=== PATIENT | female | born 1945 | race Caucasian/White ===

== ENCOUNTER 2020-02-21 22:55 | Inpatient (IN) | payer OTHER, MEDICAID, SELFPAY ==
[~2020-02-21] VITALS: Ht 167.6 cm; Wt 78.0 kg
[2020-02-21 23:20] VITALS: BP_SYST 151
--- NOTE | 2020-02-21 23:20 | NUR ---
Patient to ER bed 8 to gown for evaluation. Side rails up. Report given to MINE.
--- NOTE | 2020-02-21 23:21 | NUR ---
PT AAO AND AMBULATORY C/O FEVER OF OVER 101 TODAY WITH DIARRHEA AND POOR APPETITE. PT REPORTS THAT SHE HAS HAD DIARRHEA ON AND OFF FOR THE PAST WEEK WELL.
[2020-02-21] MEDS ORDERED: NOR10 PO (23:53)
[2020-02-21] MEDS ORDERED: DONE10TA44 PO (23:53)
[2020-02-21] MEDS ORDERED: LIP20 PO (23:53)
[2020-02-21] MEDS ORDERED: METF-510 PO (23:53)
[2020-02-21] MEDS ORDERED: LOSA100T3 PO (23:53)
[2020-02-21] MEDS ORDERED: MELO15TA13 PO (23:53)
[2020-02-21] MEDS ORDERED: INSU100V11 SQ (23:53)
[2020-02-21] MEDS ORDERED: ASA81 PO (23:53)
--- NOTE | 2020-02-21 23:55 | NUR ---
Medication reconciliation completed with information provided by Natalio). Any prior medication reconciliation on file was reviewed and corrected.
[2020-02-22] MEDS ORDERED: NACL 0.9% 1,000 ML IV ONE ×2 (00:15→04:15)
--- NOTE | 2020-02-22 00:16 | NUR ---
DR. ROSALES BEDSIDE FOR PT EVAL
[2020-02-22 00:26] LABS: EOSINOPHILS % (AUTO) 0.1 % (0.0-4.0); HEMATOCRIT 36.4 % (36-48); HEMOGLOBIN 11.7 g/dL (12.0-16.0); LYMPHOCYTES # (AUTO) 1.1 K/uL (1.0-5.5); LYMPHOCYTES % (AUTO) 7.6 % (20.5-51.5); MEAN CORPUSCULAR HEMOGLOBIN 27 pg (27-31); MEAN CORPUSCULAR HGB CONC 32 % (32-36); MEAN CORPUSCULAR VOLUME 83 fL (79.0-98.0); MONOCYTES # (AUTO) 0.5 K/uL (0.0-1.0); MONOCYTES % (AUTO) 3.7 % (1.7-9.3); NEUTROPHILS # (AUTO) 12.4 K/uL (1.8-7.7); NEUTROPHILS % (AUTO) 88.6 % (40.0-70.0); PLATELET COUNT (AUTO) 401 K/uL (130-430); RED CELL DISTRIBUTION WIDTH 18.2 % (9.0-15.0)
[2020-02-22 00:34] LABS: ANION GAP 14 (5-15); CALCIUM 9.5 mg/dL (8.4-11.0); CHLORIDE 102 mmol/L (98-107); CREATININE 1.21 mg/dL (0.55-1.30); GLUCOSE 237 mg/dL (70-99); POTASSIUM 3.7 mmol/L (3.5-5.1); SODIUM SERUM 142 mmol/L (136-145); UREA NITROGEN, BLOOD 27 mg/dL (8-21)
[2020-02-22 00:40] LABS: ALANINE AMINOTRANSFERASE 15 U/L (12-78); ASPARTATE AMINOTRANSFERASE 11 U/L (10-37); TOTAL BILIRUBIN 0.3 mg/dL (0.0-1.0)
--- NOTE | 2020-02-22 01:20 | NUR ---
VSS no s/s of acute distress Resting on gurney rails up
--- NOTE | 2020-02-22 02:23 | NUR ---
Pt's family dropped off pt's belonging including adult briefs
[2020-02-22 03:10] LABS: STREPTOCOCCUS A SCREEN (RAPID) NEGATIVE (NEGATIVE)
--- NOTE | 2020-02-22 03:30 | NUR ---
Dr. Morgan bedside for pt update on adm
[2020-02-22 03:33] LABS: INFLUENZA A&B ANTIGEN SCREEN NEGATIVE FOR A & B (NEGATIVE)
[2020-02-22] MEDS ORDERED: VANCOMYCIN HCL 1,000 MG in NS 250 ML IV ONE (04:15)
[2020-02-22] MEDS ORDERED: cefTRIAXone 1 GM in D5W 50 ML IV ONE (04:15)
[2020-02-22] MEDS ORDERED: cefTRIAXone 1 GM VIAL ONE (04:31)
[2020-02-22] MEDS ORDERED: VANCOMYCIN HCL 1000 MG/VIAL IV ONE (04:32)
--- NOTE | 2020-02-22 04:35 | NUR ---
CONSULTATION PAGED/CALLED Reason for Consultation: SEPSIS Person Who was Notified:ELIECER Consulting Physician: Andrzej CHRISTIANSON Teacher Drama Specialty: ID Ordering Physician: JOSSE
--- NOTE | 2020-02-22 04:45 | NUR ---
VSS no s/s of acute distress Resting on gurney rails up
[2020-02-22 05:00] VITALS: BP_SYST 143
--- NOTE | 2020-02-22 05:00 | NUR ---
ADMISSION: Patient AOX4, CARLINE KWOK, 74 y/o, F admitted by DOMINGUEZ TOVAR MD. With the Diagnosis of Sepsis, was given written information regarding hospital policies, unit procedures and contact persons. Valuables were checked. Call lights within reach. Safety precautions in place.
--- NOTE | 2020-02-22 05:00 | NUR ---
Transfer to Tele via ACLS protocol. Licensed nurse present. IV present no signs or symptoms of infiltration.
--- NOTE | 2020-02-22 05:00 | NUR ---
Patient will be admitted to care of . Admitted to Tele unit. Will go to room 120. Belongings list completed. Complete and up to date summary report printed. SBAR report to be given at bedside with opportunity for questions.
[2020-02-22] MEDS: D5/0.45 NS 1,000 ML IV SCH ×2 (06:00→17:08)
[2020-02-22] MEDS ORDERED: LORazepam 2 MG/ML VIAL IVP PRN (06:30)
[2020-02-22] MEDS ORDERED: NALOXONE HCL 0.4 MG/ML AMP (NARCAN) IVP PRN ×2 (06:30)
[2020-02-22] MEDS ORDERED: HYDROcodone/ACETAMIN 10-325 MG TAB PO PRN (06:30)
[2020-02-22] MEDS ORDERED: HYDROcodone/ACETAMIN 5-325 MG TAB (NORCO/ VICODIN) PO PRN (06:30)
[2020-02-22] MEDS ORDERED: ACETAMINOPHEN 325 MG TABLET PO PRN (06:30)
[2020-02-22] MEDS ORDERED: ONDANSETRON HCL 4 MG/2 ML VIAL IVP PRN (06:30)
--- NOTE | 2020-02-22 07:00 | NUR ---
RN NOTE MORNING SHIFT RN, AWARE OF ELEVATED TEMPERATURE. ENDORSE TO ORION RN.
--- NOTE | 2020-02-22 07:05 | NUR ---
CLOSING NOTE/ NEW IVF PATIENT PHYSICAL ASSESSMENT DONE AND RECORDED. PATIENT AOX4. NEW IVF HUNG AT THIS TIME. WILL ENDORSE TO ONCOMING SHIFT NURSE FOR CONTINUITY OF CARE
--- NOTE | 2020-02-22 08:02 | NUR ---
INITIAL ROUNDS Received pt AAOx4, no s/s resp distress, no c/o pain or discomfort, pt's temperature 97.8 degrees F. Pt on Airborne and Droplet isolation precautions for Covid 19+. Plan of care for the day reviewed with pt-pt verbalized his understanding. IVF infusing well to LAC at ordered rate with no s/s infiltration to site. Noted pt has her own depends on-pt educated on skin care and that we recommend not using Depends here-pt stated she understands but she still wants to use her Depends. Pt continent-pt observed ambulating to the bathroom using her cane with steady gait. Pain management, disease process, isolation, skin and safety discussed-teach back done. Call light within reach.
[2020-02-22] MEDS ORDERED: GLUCOSE 15 GM GEL (in 37.5 GM TUBE) PO PRN (09:30)
[2020-02-22] MEDS ORDERED: D5W 1,000 ML IV PRN (09:30)
[2020-02-22] MEDS ORDERED: DEXTROSE 50%-WATER 50 ML DISP.SYRIN IVP PRN (09:30)
[2020-02-22] MEDS: LOSARTAN POTASSIUM 50 MG TABLET (COZAAR) PO SCH (10:01)
[2020-02-22] MEDS: ASPIRIN 81 MG TAB.CHEW PO SCH (10:01)
[2020-02-22] MEDS: amLODIPine BESYLATE 10 MG TABLET PO SCH (10:01)
--- NOTE | 2020-02-22 10:40 | NUR ---
DRESSING CHANGED Pt's small foam dressing to left hip healing scar saturated with clear, thin drainage. Area cleansed with normal saline, foam dressing placed over site and secured in place with paper tape. Pt tolerated well. Call light within reach.
[2020-02-22 11:45] VITALS: BP_SYST 123
[2020-02-22 16:23] VITALS: BP_SYST 126
--- NOTE | 2020-02-22 17:35 | NUR ---
C/O DIARRHEA Pt c/o 3rd episode diarrhea in last couple of hours, did not see nor collect due to pt flushed the toilet right away. Dr. Bajwa called, awaiting call back.
--- NOTE | 2020-02-22 17:36 | NUR ---
PAGED PAGED DOMINGUEZ BAXTER AT [phone] SPOKE WITH MANDEEP.
[2020-02-22] MEDS ORDERED: LOPERAMIDE HCL 2 MG CAPSULE PO PRN (17:45)
--- NOTE | 2020-02-22 18:03 | NUR ---
CLOSING NOTE Pt sitting up in bed with no s/s resp distress, afebrile, no c/o pain or discomfort. Pt given Imodium tablet as ordered for c/o diarrhea. Urine culture sample sent to lab. IVF infusing well at ordered rate with no s/s infiltration to site. Airborne and droplet isolation precautions maintained throughout shift. All precautions remain in place, call light within reach.
--- NOTE | 2020-02-22 19:10 | NUR ---
OPENING NOTE PATIENT AWAKE, AOX4. NO SIGNS OF RESPIRATORY DISTRESS NOTED. DENIES PAIN AND DISCOMFORT. ON ROOM AIR, TOLERATING WELL. IVF INFUSING WELL. CALL LIGHT WITHIN REACH, PATIENT WAS EDUCATED TO USE CALL LIGHT WHEN ASSISTANCE IS NEEDED, PATIENT ABLE TO VERBALIZED UNDERSTANDING. PATIENT AMBULATES WITH CANE. BED LOCKED AND IN LOWEST POSITION. SAFETY AND ISOLATION PRECAUTION IN PLACE. WILL CONTINUE TO MONITOR PATIENT
[2020-02-22 20:00] VITALS: BP_SYST 129
[2020-02-22] MEDS: INSULIN GLARGINE 100 UNITS/ML 10 ML VIAL SQ SCH (21:00)
[2020-02-22] MEDS: cefTRIAXone 1 GM IVPB PREMIX 50 ML IV SCH (21:34)
[2020-02-22] MEDS: DONEPEZIL HCL 5 MG TABLET (ARICEPT) PO SCH (21:34)
[2020-02-22] MEDS: ATORVASTATIN 20 MG TABLET PO SCH (21:34)
--- NOTE | 2020-02-22 21:34 | NUR ---
MED PASS/ BS 150/ NEW IV SITE DUE MEDICATION GIVEN AT THIS TIME. BS WAS 150. LANTUS WAS GIVEN PER ORDER WELL. PATIENT WAS EDUCATED ON MEDICATION THAT WAS GIVEN FOR ITS PURPOSE, SIDE EFFECT AND BENEFITS. PATIENT ABLE TO VERBALIZED UNDERSTANDING. PATIENT IV SITE INFILTRATED, REMOVED AT THIS TIME, CATHETER INTACT. REINSERTED IN THE LEFT FOREARM #22 G, PATENCY NOTED. CALL LIGHT WITHIN REACH. SAFETY PRECAUTIONS IN PLACE. WILL CONTINUE TO MONITOR PATIENT
--- NOTE | 2020-02-22 23:50 | NUR ---
VITAL SIGNS VITAL SIGNS TAKEN AND WILL BE RECORDED. PATIENT AWAKE, AMBULATE TO BATHROOM WITH ASSISTIVE DEVICE. AND SAFELY BACK TO BED. NO SIGNS OF RESPIRATORY DISTRESS AND DISCOMFORT NOTED. BREATHING EVEN AND UNLABORED. ON ROOM AIR TOLERATING WELL. IVF INFUSING WELL. CALL LIGHT WITHIN REACH. SAFETY PRECAUTIONS IN PLACE. WILL CONTINUE TO MONITOR PATIENT
--- NOTE | 2020-02-23 | NUR ---
Midnight note: Pt laying in bed with no signs of distress. No pain or discomfort reported. Safety precautions in place. Call light within reach, side rails up x3. Bed in lowest position. Bed alarms on.
[2020-02-23 00:04] VITALS: BP_SYST 115
[2020-02-23] MEDS: D5/0.45 NS 1,000 ML IV SCH ×3 (00:30→23:04)
--- NOTE | 2020-02-23 02:36 | NUR ---
RN ROUNDS PATIENT ASLEEP AT THIS TIME. NO SIGNS OF RESPIRATORY DISTRESS AND DISCOMFORT NOTED. BREATHING EVEN AND UNLABORED. ON ROOM AIR TOLERATING WELL. IVF INFUSING WELL. CALL LIGHT WITHIN REACH. SAFETY PRECAUTIONS IN PLACE. WILL CONTINUE TO MONITOR PATIENT.
[2020-02-23] MEDS: INSULIN REGULAR, HUMAN 100 UNITS/ML, 10 ML VIAL (humuLIN R) SUBCUT PRN (06:58)
--- NOTE | 2020-02-23 07:00 | NUR ---
Nutrition Update Yoshi scale 18 noted. Pt admitted for Sepsis Diet: Cardiac BMI: 27.8 kg/m2 RD to follow per nutrition care standards.
--- NOTE | 2020-02-23 07:00 | NUR ---
CLOSING NOTE /BS 169/ WOUND CARE PATIENT AWAKE AND AMBULATE TO BATHROOM USING CANE. PATIENT HAS NO SIGNS OF RESPIRATORY DISTRESS AND DISCOMFORT NOTED. BREATHING EVEN AND UNLABORED. ON ROOM AIR TOLERATING WELL. BS WAS 169, 2 UNITS OF REGULAR INSULIN FOR COVERAGE WA GIVEN. PATIENT WAS EDUCATED ON MEDICATION THAT WAS GIVEN FOR ITS PURPOSE, SIDE EFFECT AND BENEFITS. PATIENT VERBALIZED UNDERSTANDING. DRESSING IN THE LEFT HIP WAS DONE WELL, DRESSING SOILED AND YELLOW DRAINAGE NOTED. BED LOCKED AND IN LOWEST POSITION. ON SAFETY AND ISOLATION PRECAUTION IN PLACE. ALL NEEDS MET THROUGHOUT THE SHIFT. WILL CONTINUE TO MONITOR PATIENT UNTIL ENDORSE TO ONCOMING SHIFT NURSE FOR CONTINUITY OF CARE.
[2020-02-23 07:32] LABS: BASOPHILS % (AUTO) 0.2 % (0.0-2.0); EOSINOPHILS # (AUTO) 0.1 K/uL (0.0-0.4); EOSINOPHILS % (AUTO) 0.6 % (0.0-4.0); HEMATOCRIT 30.5 % (36-48); HEMOGLOBIN 9.9 g/dL (12.0-16.0); LYMPHOCYTES % (AUTO) 8.8 % (20.5-51.5); MEAN CORPUSCULAR HEMOGLOBIN 27 pg (27-31); MEAN CORPUSCULAR HGB CONC 33 % (32-36); MEAN CORPUSCULAR VOLUME 81 fL (79.0-98.0); MONOCYTES # (AUTO) 0.7 K/uL (0.0-1.0); MONOCYTES % (AUTO) 6.2 % (1.7-9.3); NEUTROPHILS % (AUTO) 84.2 % (40.0-70.0); PLATELET COUNT (AUTO) 286 K/uL (130-430); RED BLOOD CELL COUNT(AUTO) 3.74 MIL/uL (4.2-6.2); RED CELL DISTRIBUTION WIDTH 17.9 % (9.0-15.0); WHITE BLOOD COUNT (AUTO) 11.8 K/uL (4.8-10.8)
[2020-02-23 07:49] LABS: ANION GAP 10 (5-15); CALCIUM 8.5 mg/dL (8.4-11.0); CHLORIDE 102 mmol/L (98-107); CREATININE 0.83 mg/dL (0.55-1.30); GLUCOSE 164 mg/dL (70-99); PHOSPHORUS 2.7 mg/dL (2.7-4.5); POTASSIUM 3.1 mmol/L (3.5-5.1); SODIUM SERUM 137 mmol/L (136-145); UREA NITROGEN, BLOOD 7 mg/dL (8-21)
[2020-02-23 08:00] VITALS: BP_SYST 126
--- NOTE | 2020-02-23 08:01 | NUR ---
INITIAL ROUNDS Received pt AAOx3, forgetful at times. No s/s resp distress, no c/o pain or discomfort. No further c/o diarrhea today. Airborne and Droplet precautions in place for R/O Covid 19. IVF infusing well to LAC at ordered rate with no s/s infiltration to site. Plan of care for the day reviewed with pt-pt verbalized her understanding. Pt has her own Depends on-pt educated on skin care and that we do not recommend Depends-pt stated she still wants to wear her Depends. Pain management, sepsis, isolation, skin and safety discussed-teach back done. Side rails up x3, room close to nursing station for safety. Call light within reach.
[2020-02-23] MEDS: ASPIRIN 81 MG TAB.CHEW PO SCH (09:04)
[2020-02-23] MEDS: amLODIPine BESYLATE 10 MG TABLET PO SCH (09:04)
[2020-02-23] MEDS: LOSARTAN POTASSIUM 50 MG TABLET (COZAAR) PO SCH (09:04)
[2020-02-23 10:47] LABS: ERYTHROCYTE SEDIMENTATION RATE 70 MM/HR (0-20)
[2020-02-23] MEDS ORDERED: COMMUNICATION ORDER XX ONE (11:15)
[2020-02-23] MEDS ORDERED: MEMA1CAP3 PO (11:21)
[2020-02-23] MEDS: MELOXICAM 7.5 MG TABLET PO SCH ×2 (11:33→11:35)
[2020-02-23 12:35] VITALS: BP_SYST 100
--- NOTE | 2020-02-23 13:45 | NUR ---
Dietitian Recommendations *Continue [facility] [place] Cardiac diet. *Recommend: adding Glucerna BID. ONS will provide additional 440 kcal and 20gm protein daily. Please see Nutritional Assessment for details. GONZALO, JOANNA
--- NOTE | 2020-02-23 13:48 | NUR ---
ROUNDS Pt resting quietly in bed with no s/s resp distress, afebrile, no further c/o pain or discomfort. No changes, all precautions remain in place, call light within reach.
[2020-02-23 16:15] VITALS: BP_SYST 123
--- NOTE | 2020-02-23 17:54 | NUR ---
CALLED Pt is Covid 19 not detected, DR. Andrzej Christensen called, awaiting call back.
[2020-02-23] MEDS ORDERED: SER25 PO (18:27)
--- NOTE | 2020-02-23 18:46 | NUR ---
CLOSING NOTE//OTF ISOLATION Dr. Bajwa here and informed of pt's Covid 19 not detected results, informed him that Dr. Andrzej Christensen has not seen the patient yet-Dr. Bajwa stated okay to D/C isolation precautions-will inform Charge Nurse. Pt sitting up in bed eating her dinner. No s/s resp distress, no c/o pain or discomfort. IVF infusing well to LFA at ordered rate with no s/s infiltration to site. Pt given new package of Depends from her family. All precautions remain in place. Needs met, call light within reach.
[2020-02-23] MEDS ORDERED: POTASSIUM CHLORIDE 20 MEQ TAB.PRT.SR PO ONE (19:00)
[2020-02-23] MEDS ORDERED: MAGNESIUM SULFATE 50 ML IV ONE (19:00)
--- NOTE | 2020-02-23 19:39 | NUR ---
Dr. Srikanth Bajwa / MS s/w Dr. Srikanth Bajwa and he provided order; ok to downgrade to MS
--- NOTE | 2020-02-23 19:48 | NUR ---
TRANSFER PATIENT DOWN GRADED TO MED-SURG STATUS AND ISOLATION DISCONTINUED. PATIENT TRANSFERRED TO ROOM 101B. ALL BELONGINGS MOVED WITH PATIENT. REPORT GIVEN TO BENITO VERDUZCO.
--- NOTE | 2020-02-23 20:00 | NUR ---
Opening note: Received pt A/O x4. No signs of distress noted. Breathing is even/ unlabored and on room air. Denies any pain or discomfort. Client tolerating IV fluid well. Safety precautions in place. Call light within reach. Pt ambulates with cane to the restroom. Educated pt to call for assistance as needed for restroom assistance. Client verbalizing understanding. Safety precautions in place. Bed in low position. Call light within reach. Side rails up x2.
[2020-02-23] MEDS: ATORVASTATIN 20 MG TABLET PO SCH (22:00)
[2020-02-23] MEDS: DONEPEZIL HCL 5 MG TABLET (ARICEPT) PO SCH (22:17)
[2020-02-23] MEDS: MEMANTINE HCL 5 MG TABLET PO SCH (23:06)
[2020-02-23] MEDS: QUEtiapine FUMARATE 25 MG TABLET PO SCH (23:07)
[2020-02-23] MEDS: cefTRIAXone 1 GM IVPB PREMIX 50 ML IV SCH (23:50)
[2020-02-24] VITALS: BP_SYST 128
--- NOTE | 2020-02-24 | NUR ---
Midnight note: Pt resting in bed. A/O x4. Breathing even and unlabored. No complain of pain or distress verbalized. No signs of distress noted. Bed in low position/ locked, side rails x2, bed side commode near bed.
[2020-02-24] MEDS: INSULIN GLARGINE 100 UNITS/ML 10 ML VIAL SQ SCH (00:09)
[2020-02-24 04:00] VITALS: BP_SYST 115
--- NOTE | 2020-02-24 05:15 | NUR ---
Closing note Pt getting up to use the restroom with assistance throughout shift. No signs of distress noted. Breathing even/unlabored and on room air. BS remained within normal limits with coverage needed as of now. Dressing dry and intact no drainage noted. Bed in low position/locked. Side rails up x2, bed side commode and call light within reach. Client verbalized she would call for assistance as needed.
[2020-02-24 05:30] LABS: BASOPHILS % (AUTO) 0.3 % (0.0-2.0); EOSINOPHILS # (AUTO) 0.2 K/uL (0.0-0.4); EOSINOPHILS % (AUTO) 1.6 % (0.0-4.0); HEMATOCRIT 27.2 % (36-48); LYMPHOCYTES # (AUTO) 1.1 K/uL (1.0-5.5); LYMPHOCYTES % (AUTO) 10.6 % (20.5-51.5); MEAN CORPUSCULAR HEMOGLOBIN 27 pg (27-31); MEAN CORPUSCULAR HGB CONC 33 % (32-36); MEAN CORPUSCULAR VOLUME 81 fL (79.0-98.0); MONOCYTES # (AUTO) 0.6 K/uL (0.0-1.0); MONOCYTES % (AUTO) 6.1 % (1.7-9.3); NEUTROPHILS # (AUTO) 8.6 K/uL (1.8-7.7); NEUTROPHILS % (AUTO) 81.4 % (40.0-70.0); PLATELET COUNT (AUTO) 271 K/uL (130-430); RED BLOOD CELL COUNT(AUTO) 3.35 MIL/uL (4.2-6.2); WHITE BLOOD COUNT (AUTO) 10.5 K/uL (4.8-10.8)
[2020-02-24 05:36] LABS: ANION GAP 6 (5-15); CALCIUM 8.3 mg/dL (8.4-11.0); CHLORIDE 104 mmol/L (98-107); CREATININE 0.69 mg/dL (0.55-1.30); GLUCOSE 110 mg/dL (70-99); POTASSIUM 3.2 mmol/L (3.5-5.1); SODIUM SERUM 137 mmol/L (136-145); UREA NITROGEN, BLOOD 8 mg/dL (8-21)
--- NOTE | 2020-02-24 07:00 | NUR ---
Blood sugar BS (124) within normal limits. No coverage needed. Safety precautions in place, bed locked and in low position. Call light within reach, side rails up x2.
[2020-02-24 08:46] LABS: ERYTHROCYTE SEDIMENTATION RATE 76 MM/HR (0-20)
[2020-02-24] MEDS: amLODIPine BESYLATE 10 MG TABLET PO SCH (09:00)
[2020-02-24] MEDS ORDERED: DONEPEZIL HCL 5 MG TABLET (ARICEPT) PO SCH (09:00)
[2020-02-24] MEDS ORDERED: metFORMIN HCL 500 MG TABLET PO SCH (09:00)
[2020-02-24] MEDS: MELOXICAM 7.5 MG TABLET PO SCH (09:00)
[2020-02-24] MEDS: ASPIRIN 81 MG TAB.CHEW PO SCH (09:27)
[2020-02-24] MEDS: MEMANTINE HCL 5 MG TABLET PO SCH (09:27)
[2020-02-24] MEDS: LOSARTAN POTASSIUM 50 MG TABLET (COZAAR) PO SCH (09:28)
[2020-02-24] MEDS: QUEtiapine FUMARATE 25 MG TABLET PO SCH (09:28)
--- NOTE | 2020-02-24 10:45 | NUR ---
WOUND EVALUATION: Wound Consult received from Dr. Carlos Bajwa. Thank you Dr. Bajwa for the consult. Patient received in a Huger Bed with an IsoFlex CRAIG mattress, awake, alert, oriented x 3. Patient is able to turn independently. Yoshi Score is a 20. 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 Recent Labs: WBC 10.5, RBC 3.35, hemoglobin 9.0, hematocrit 27.2, ESR 76, potassium 3.2, glucose 110, POC glucose 124, calcium 8.3, C-reactive protein 28.0, albumin 3.0. Microbiology: Blood culture results x2 in progress. Nose/throat culture results in progress. Urine culture results positive for E. coli. Intrinsic factors that delay wound healing: Diabetes mellitus, Hypoalbuminemia. Extrinsic factors that delay wound healing: Decreased mobility. Wound Assessment: 1. Left Lateral Hip, Proximal Open Area: Surgical incision from total hip replacement in May,. Incision is mostly approximated with white scar tissue, but has 2 small open areas. Wound bed has 100% pink tissue. No odor, small serous drainage. Periwound intact. Surrounding tissue appears to be normal, no signs of erythema, calor, or induration. Site measures 0.3 cm x 0.2 cm. 2. Left Lateral Hip, Distal Open Area: Surgical incision from total hip replacement in May,. Incision is mostly approximated with white scar tissue, but has 2 small open areas. Wound bed has 100% pink tissue. No odor, small serous drainage. Periwound intact. Surrounding tissue appears to be normal, no signs of erythema, calor, or induration. Site measures 0.5 cm x 0.2 cm. Recommend: Cleanse wound with normal saline. Apply SurePrep to nanci-wound and surrounding area. Cover with 4x4 foam dressing. Perform wound care daily, and as needed for dressing soiling or dislodgement. Also recommend: Encourage and assist patient as needed with repositioning every 2 hours with pillow support and off-load pressure areas with pillows for pressure re-distribution. Offload, elevate and float bilateral heels with pillows. Perform skin care and monitor skin integrity Q shift. Use moisture barrier cream on buttocks and other moisture susceptible areas QID and as needed for soiling.
[2020-02-24 12:01] VITALS: BP_SYST 104
--- NOTE | 2020-02-24 13:03 | NUR ---
Spoke with patients daughter for update on patients status.
--- NOTE | 2020-02-24 13:03 | NUR ---
Patient is in bed resting. Patient is alert and oriented x4. Patient denies pain, shortness of breath, and distress. Wound care done. All care needs met. Bed in low position. Call light in reach. Will continue to monitor.
[2020-02-24 16:03] VITALS: BP_SYST 119
[2020-02-24] MEDS ORDERED: POTASSIUM CHLORIDE 20 MEQ TAB.PRT.SR PO ONE (17:45)
--- NOTE | 2020-02-24 17:53 | NUR ---
P.T. NOTES P.T. EVAL COMPLETED; REFER TO EVAL FOR DETAILS; AMBULATORY W/ FWW; D/C FROM P.T. AFTER EVAL, ENDORSED TO NURSING.
[2020-02-24] MEDS ORDERED: SULF1TAB48 PO ×2 (18:13→20:03)
[2020-02-24] MEDS: INSULIN REGULAR, HUMAN 100 UNITS/ML, 10 ML VIAL (humuLIN R) SUBCUT PRN (18:24)
--- NOTE | 2020-02-24 18:48 | NUR ---
Patient is in bed resting. Patient is alert and oriented x4. All care needs met during shift. Bed in low position. Call light in reach. Will give report to night nurse.
[2020-02-24 19:41] VITALS: BP_SYST 141
--- NOTE | 2020-02-24 20:01 | NUR ---
call pt's daughter Marina dent [phone], left voice mail that her mother is discharge tonight and will be ready for bulk picker in 30 mins. will wait for call back.
--- NOTE | 2020-02-24 20:20 | NUR ---
Pt discharged. Picked up by pt's daughter Marina dent. New regimen prescription explained followed by discharged papers.
== END 2020-02-24 23:26 | disposition home or self-care (01) | DRG 872 ==
LOC: SED 22:55 → STU 02-22 04:16 → SMU 02-23 19:43
PROVIDERS: ADMIT Preventive Medicine Preventive Medicine/Occupational Environmental Medicine; ATTEND Preventive Medicine Preventive Medicine/Occupational Environmental Medicine
DX: A41.9 Sepsis, unspecified organism (principal); N39.0 Urinary tract infection, site not specified; B96.20 Unspecified Escherichia coli [E. coli] as the cause of diseases classified elsewhere; E11.65 Type 2 diabetes mellitus with hyperglycemia; E78.5 Hyperlipidemia, unspecified; F03.90 Unspecified dementia, unspecified severity, without behavioral disturbance, psychotic disturbance, mood disturbance, and anxiety; E83.42 Hypomagnesemia; I10 Essential (primary) hypertension; R79.89 Other specified abnormal findings of blood chemistry; E87.6 Hypokalemia; E83.51 Hypocalcemia; D64.9 Anemia, unspecified; Z20.828 Contact with and (suspected) exposure to other viral communicable diseases; Z96.643 Presence of artificial hip joint, bilateral; S71.002A Unspecified open wound, left hip, initial encounter; X58.XXXA Exposure to other specified factors, initial encounter; Y93.89 Activity, other specified; Y92.89 Other specified places as the place of occurrence of the external cause; Y99.8 Other external cause status; Z79.899 Other long term (current) drug therapy; Z79.82 Long term (current) use of aspirin
CPT/HCPCS: 36415; 71045; 72170-TC; 73502; 80048; 80053; 82962; 83605; 83735-TC; 84100-TC; 85025; 85651-TC; 86140; 86403; 86710; 87040-TC; 87070-TC; 87075-TC; 87081; 87086; 87186-TC; 96365; 96366; 96368; 99285; A6209; G0378; J0696; J1815; J3370; J3475; U0003-CS

== ENCOUNTER 2020-03-05 18:26 | Emergency (ER) | payer OTHER, MEDICAID, SELFPAY ==
[~2020-03-05] VITALS: Ht 172.7 cm; Wt 90.7 kg
[~2020-03-05 18:26] MED LIST: ASA81 PO; DONE10TA44 PO; INSU100V11 SQ; LIP20 PO; LOSA100T3 PO; MELO15TA13 PO; MEMA1CAP3 PO; METF-510 PO; NOR10 PO; SER25 PO; SULF1TAB48 PO
[2020-03-05 18:40] VITALS: BP_SYST 121
[2020-03-05] MEDS ORDERED: KETOROLAC TROMETHAMINE 15 MG VIAL IVP ONE (20:15)
[2020-03-05] MEDS ORDERED: MORPHINE 2 MG/ML INJ. SYRINGE IVP ONE (20:15)
[2020-03-05 20:28] LABS: BASOPHILS % (AUTO) 0.4 % (0.0-2.0); EOSINOPHILS # (AUTO) 0.2 K/uL (0.0-0.4); EOSINOPHILS % (AUTO) 2.3 % (0.0-4.0); HEMATOCRIT 31.6 % (36-48); HEMOGLOBIN 9.8 g/dL (12.0-16.0); LYMPHOCYTES # (AUTO) 1.9 K/uL (1.0-5.5); LYMPHOCYTES % (AUTO) 23.1 % (20.5-51.5); MEAN CORPUSCULAR HEMOGLOBIN 26 pg (27-31); MEAN CORPUSCULAR HGB CONC 31 % (32-36); MEAN CORPUSCULAR VOLUME 84 fL (79.0-98.0); MONOCYTES # (AUTO) 0.6 K/uL (0.0-1.0); MONOCYTES % (AUTO) 6.9 % (1.7-9.3); NEUTROPHILS # (AUTO) 5.5 K/uL (1.8-7.7); NEUTROPHILS % (AUTO) 67.3 % (40.0-70.0); PLATELET COUNT (AUTO) 473 K/uL (130-430); RED BLOOD CELL COUNT(AUTO) 3.77 MIL/uL (4.2-6.2); RED CELL DISTRIBUTION WIDTH 18.1 % (9.0-15.0); WHITE BLOOD COUNT (AUTO) 8.1 K/uL (4.8-10.8)
[2020-03-05 20:28] LABS: BILIRUBIN,URINE NEGATIVE (NEGATIVE); BLOOD, URINE NEGATIVE (NEGATIVE); CLARITY/URINE CLEAR (CLEAR); COLOR,URINE YELLOW (YELLOW); GLUCOSE,URINE NEGATIVE (NEGATIVE); KETONES,URINE NEGATIVE (NEGATIVE); LEUKOCYTE ESTERASE ,URINE NEGATIVE (NEGATIVE); NITRITE, URINE NEGATIVE (NEGATIVE); PROTEIN URINE NEGATIVE (NEGATIVE); UROBILINOGEN,URINE 0.2 (0.2-1.0)
[2020-03-05 20:44] LABS: CALCIUM 10.1 mg/dL (8.4-11.0); CHLORIDE 103 mmol/L (98-107); CREATININE 1.19 mg/dL (0.55-1.30); GLUCOSE 102 mg/dL (70-99); UREA NITROGEN, BLOOD 29 mg/dL (8-21)
[2020-03-05] MEDS ORDERED: NACL 0.9% 1,000 ML IV ONE ×2 (20:45→21:15)
[2020-03-05 20:59] LABS: ALANINE AMINOTRANSFERASE 22 U/L (12-78); ALBUMIN 2.7 g/dL (3.4-4.8); ASPARTATE AMINOTRANSFERASE 16 U/L (10-37); LIPASE 92 U/L (73-393)
[2020-03-05 21:12] LABS: ANION GAP 12 (5-15); SODIUM SERUM 139 mmol/L (136-145)
[2020-03-05 21:14] LABS: POTASSIUM 5.3 mmol/L (3.5-5.1)
[2020-03-05 21:23] LABS: TOTAL BILIRUBIN 0.1 mg/dL (0.0-1.0)
[2020-03-05] MEDS ORDERED: SODIUM POLYSTYRENE SULFONATE 15 GM/60 ML UDBTL PO ONE (21:30)
[2020-03-05 22:00] VITALS: BP_SYST 121
== END 2020-03-05 22:00 | disposition home or self-care (01) ==
LOC: SED 18:26
DX: K57.92 Diverticulitis of intestine, part unspecified, without perforation or abscess without bleeding (principal); I10 Essential (primary) hypertension; E11.9 Type 2 diabetes mellitus without complications; Z79.899 Other long term (current) drug therapy; Z79.82 Long term (current) use of aspirin
CPT/HCPCS: 36415; 74176; 80053; 81003; 83605; 83690; 85025; 93005; 96361; 96374; 96375; 99285; J1885; J2270; J7030

== ENCOUNTER 2020-03-26 23:58 | Inpatient (IN) | payer OTHER, MEDICAID, SELFPAY ==
[~2020-03-26] VITALS: Ht 167.6 cm; Wt 89.8 kg
[2020-03-26 20:00] VITALS: BP_SYST 111
[2020-03-26 23:58] VITALS: BP_SYST 121
[~2020-03-26 23:58] MED LIST changes: +CEFA2SYR4 IV; -SULF1TAB48 PO
--- NOTE | 2020-03-27 | NUR ---
Pt biba from [facility] to bed 6 for evaluation
[2020-03-27] MEDS ORDERED: ACET325T PO ×2 (00:33→00:35)
[2020-03-27] MEDS ORDERED: MULT-1100 PO (00:37)
[2020-03-27] MEDS ORDERED: MEMA10TA PO (00:40)
--- NOTE | 2020-03-27 00:46 | NUR ---
pt ambulated to restroom with cane with steady gait.
[2020-03-27] MEDS ORDERED: SSREG SUBCUT (00:57)
[2020-03-27] MEDS ORDERED: GLUC1KIT I.M. (01:00)
[2020-03-27] MEDS ORDERED: DEXT50DI5 IV (01:04)
--- NOTE | 2020-03-27 01:07 | NUR ---
Medication reconciliation completed with information provided by Lesly Dorsey. Any prior medication reconciliation on file was reviewed and corrected.
--- NOTE | 2020-03-27 01:12 | NUR ---
ER Dr. Morgan at bedside examining patient.
--- NOTE | 2020-03-27 01:15 | NUR ---
pt a&o x4 BIB BLS from [facility] c/o of constant left hip pain for past three days. pt had hip replacement in 2018 and was admittted 03/15/20 for cellulitis of left hip. pt has a right upper arm PICC line and has been receiving antibiotic therapy while at [facility]. pt complains of 8 out of 10 pain that has been constant.
[2020-03-27] MEDS ORDERED: MORPHINE 4 MG/ML INJ. SYRINGE IVP ONE (02:30)
[2020-03-27] MEDS ORDERED: cefTRIAXone 1 GM in D5W 50 ML IV ONE (02:30)
--- NOTE | 2020-03-27 02:30 | NUR ---
PATIENTS RIGHT UPPER ARM PICC LINE DOES NOT FLUSH PROPERLY. UNABLE TO DRAW BLOOD BACK AND UNABLE TO FLUSH WITH NORMAL SALINE. AWARE.
--- NOTE | 2020-03-27 02:40 | NUR ---
# 20 gauge angiocath placed to RIGHT HAND. Use of asceptic technique. Opsite placed over site. Blood return noted. Blood for lab drawn from site. Flushed with 10 cc of normal saline. No evidence of infiltration noted. Patient tolerated well.
[2020-03-27] MEDS ORDERED: cefTRIAXone 1 GM IVPB PREMIX 50 ML IV ONE (02:46)
--- NOTE | 2020-03-27 02:50 | NUR ---
Blood cultures drawn, prior to administration of antibiotic.
--- NOTE | 2020-03-27 03:49 | NUR ---
LAB AT BEDSIDE FOR BLOOD DRAW.
[2020-03-27 03:58] LABS: BASOPHILS % (AUTO) 0.5 % (0.0-2.0); EOSINOPHILS # (AUTO) 0.3 K/uL (0.0-0.4); EOSINOPHILS % (AUTO) 3.7 % (0.0-4.0); HEMATOCRIT 30.9 % (36-48); HEMOGLOBIN 10.2 g/dL (12.0-16.0); LYMPHOCYTES # (AUTO) 1.6 K/uL (1.0-5.5); LYMPHOCYTES % (AUTO) 19.4 % (20.5-51.5); MEAN CORPUSCULAR HEMOGLOBIN 28 pg (27-31); MEAN CORPUSCULAR HGB CONC 33 % (32-36); MEAN CORPUSCULAR VOLUME 83 fL (79.0-98.0); MONOCYTES # (AUTO) 0.7 K/uL (0.0-1.0); MONOCYTES % (AUTO) 8.5 % (1.7-9.3); NEUTROPHILS # (AUTO) 5.5 K/uL (1.8-7.7); NEUTROPHILS % (AUTO) 67.9 % (40.0-70.0); PLATELET COUNT (AUTO) 334 K/uL (130-430); RED BLOOD CELL COUNT(AUTO) 3.71 MIL/uL (4.2-6.2); RED CELL DISTRIBUTION WIDTH 18.5 % (9.0-15.0); WHITE BLOOD COUNT (AUTO) 8.2 K/uL (4.8-10.8)
[2020-03-27 04:08] LABS: ANION GAP 3 (5-15); CALCIUM 9.2 mg/dL (8.4-11.0); CHLORIDE 108 mmol/L (98-107); CREATININE 0.88 mg/dL (0.55-1.30); GLUCOSE 97 mg/dL (70-99); POTASSIUM 3.7 mmol/L (3.5-5.1); SODIUM SERUM 138 mmol/L (136-145); UREA NITROGEN, BLOOD 19 mg/dL (8-21)
[2020-03-27 04:13] LABS: ALANINE AMINOTRANSFERASE 8 U/L (12-78); ASPARTATE AMINOTRANSFERASE 11 U/L (10-37); C-REACTIVE PROTEIN QUANT 1.9 mg/dL (0-0.5); TOTAL BILIRUBIN 0.2 mg/dL (0.0-1.0)
--- NOTE | 2020-03-27 04:25 | NUR ---
Patient's code status is full code paperwork completed and placed in chart.
--- NOTE | 2020-03-27 05:35 | NUR ---
RECEIVED ADMIT ORDERS FROM DR. AVELAR.
--- NOTE | 2020-03-27 05:37 | NUR ---
PT GIVEN A SANDWICH TO EAT, SHE STATED SHE WAS HUNGRY.
[2020-03-27] MEDS: NORMAL SALINE 5 ML DISP.SYRIN IVF SCH ×3 (06:50→22:38)
--- NOTE | 2020-03-27 07:08 | NUR ---
REPORT GIVEN TO DAX WOLFE FOR CONTINUATION OF CARE.
--- NOTE | 2020-03-27 07:39 | NUR ---
Pt in [facility] with side rail up. Denies pain at this time. Alert and oriented. No distress noted. Able to ambulate.
--- NOTE | 2020-03-27 07:45 | NUR ---
Patient will be admitted to care of [facility]. Admitted to M/S unit. Will go to room 111A. Belongings list completed. Complete and up to date summary report printed. SBAR report to be given at bedside with opportunity for questions.
--- NOTE | 2020-03-27 07:49 | NUR ---
CONSULTATION PAGED REASON FOR CONSULTATION:CELLULITIS WAS CONSULT CALLED?Y PERSON WHO WAS NOTIFIED:TERE CONSULTING PHYSICIAN:JOSE ADAME BIOASSAYIST SPECIALTY:INFECTIOUS DISEASE BIOASSAYIST PHONE NUMBER:[phone] REQUESTING PHYSICIAN:NEIL RHOADES
[2020-03-27 07:50] VITALS: BP_SYST 133
--- NOTE | 2020-03-27 07:50 | NUR ---
ADMISSION NOTE Received patient from ER via gurney. Patient admitted with diagnosis of . Patient is awake, alert, oriented X4. Patient oriented to hospital room, call light, toileting, pain management and safety-teach back done. Patient informed that Geeta will be her nurse and that their room number is 111A. Personal belongings checked and Belongings List documented. Call light within reach.
--- NOTE | 2020-03-27 08:15 | NUR ---
Initial Notes: Received patient sitting in the chair. With cane beside her. Oriented to name,place and time. Call light with in reach. Bed locked at lowest position. No acute distress. Addendum: 03/27/20 at 1802 by Lana Dutton RN Added notes: With right upper arm picc line x 2 ports.
--- NOTE | 2020-03-27 10:14 | NUR ---
MD HERBERT: SPOKE WITH DR AVELAR FOR IV PAIN MEDS PER PATIENT'S REQUEST ,ACCU CHECK EVERY 6HOURS,HUMULIN R SLIDING SCALE PER PHARMACY DOSE. Addendum: 03/27/20 at 1017 by Lana Dutton RN ADDED NOTES: GIVE MORPHINE 1MG IVP EVERY 4HOURS PRN FOR MODERATE PAIN. MORPHINE 4MG IVP EVERY 4HOURS PRN FOR SEVERE PAIN.ZOFRAN 4MG IVP EVERY 6HOURS PRN FOR NAUSEA/VOMITING.
[2020-03-27] MEDS ORDERED: ONDANSETRON HCL 4 MG/2 ML VIAL IVP PRN (10:15)
[2020-03-27] MEDS ORDERED: INSULIN REGULAR, HUMAN 100 UNITS/ML, 10 ML VIAL (humuLIN R) SUBCUT PRN (10:15)
[2020-03-27] MEDS ORDERED: MORPHINE 2 MG/ML INJ. SYRINGE IVP PRN ×2 (10:15)
--- NOTE | 2020-03-27 10:40 | NUR ---
IV PAIN MEDS: C/O LEFT HIP PAIN RE:SWOLLEN/REDNESS AND DUE IV MORPHINE GIVEN FOR SEVERE PAIN. NO SIDE EFFECTS NOTED.
--- NOTE | 2020-03-27 11:32 | NUR ---
ID ROUNDS: PATIENT SEEN BY DR Andrzej CHRISTIANSON IN THE ROOM,WANTS ORTHO TO SEE PATIENT.
--- NOTE | 2020-03-27 11:32 | NUR ---
BLOOD SUGAR: BLOOD SUGAR TAKEN,NO INSULIN NEEDED PER SLIDING SCALE.
--- NOTE | 2020-03-27 11:49 | NUR ---
CONSULTATION PAGED REASON FOR CONSULTATION:PROSTHETIC WAS CONSULT CALLED?Y PERSON WHO WAS NOTIFIED:DIOGO CONSULTING PHYSICIAN:ZEKE MANNING SENIOR PROGRAM ANALYST SPECIALTY:ORTHO SENIOR PROGRAM ANALYST PHONE NUMBER:[phone] REQUESTING PHYSICIAN:JOSE ADAME
--- NOTE | 2020-03-27 12:30 | NUR ---
SPOKE WITH DAUGHTER: SPOKE WITH DAUGHTER NIHARIKA SAYING, NO NARCOTIC IV/PO PAIN MEDS TO BE GIVEN,IT WILL MAKE HER MOM ADDICTIVE ,TRAMADOL PO OKAY TO GIVE.DR Andrzej CHRISTIANSON IN THE HOUSE,ORDERED TRAMADOL PO AND DC IV MORPHINE.
[2020-03-27 12:38] VITALS: BP_SYST 141
[2020-03-27] MEDS: VANCOMYCIN HCL 1,750 MG in NS 500 ML IV SCH (14:25)
[2020-03-27] MEDS: traMADol HCL HCL 50 MG TABLET (ULTRAM) PO PRN ×2 (14:28→22:39)
--- NOTE | 2020-03-27 14:28 | NUR ---
PAIN MEDS: C/O LEFT HIP CELLULITIS PAIN,DUE ULTRAM PO GIVEN PER REQUEST. NO SIDE EFFECTS NOTED.
--- NOTE | 2020-03-27 14:30 | NUR ---
VANCOMYCIN IVPB: IV VANCOMYCIN GIVEN ORDERED.COTTON BAG SEWER JUST BROUGHT IN. NO PROBLEM.
[2020-03-27] MEDS: ceFAZolin SODIUM 2 GM in D5W 100 ML IV SCH ×2 (14:50→22:38)
[2020-03-27 16:27] VITALS: BP_SYST 115
--- NOTE | 2020-03-27 17:04 | NUR ---
BLOOD SUGAR: BLOOD SUGAR=78MG/DL ,NO INSULIN NEEDED PER SLIDING SCALE. TOOK 1 CUP OF OJ,TOLERATED WELL.
[2020-03-27] MEDS ORDERED: LR 1,000 ML IV.SOLN IV ONE (17:30)
[2020-03-27] MEDS ORDERED: BUPIVACAINE /EPINEPHRINE/PF 0.5% 30 ML VIAL INJ ONE (17:30)
[2020-03-27] MEDS ORDERED: MIDAZOLAM HCL 5 MG/5 ML VIAL IVP ONE (17:30)
[2020-03-27] MEDS ORDERED: PROPOFOL 200MG/ 20ML VIAL (DIPRIVAN) IV ONE (17:30)
[2020-03-27] MEDS ORDERED: LIDOCAINE 2%, 20 ML MDV INJ ONE (17:30)
--- NOTE | 2020-03-27 17:50 | NUR ---
Iv infiltrated: Iv at right wrist infiltrated.Iv removed at right wrist.Tried iv reinsertion x2 but no success.Patient hard stick. Will page for picc line use.
--- NOTE | 2020-03-27 17:55 | NUR ---
Picc line dressing change: Right upper arm picc line dressing change aseptically. Flushed red port with saline ,with good blood return. Purple port not able to flush,not working.
--- NOTE | 2020-03-27 18:00 | NUR ---
Picc Line use: Spoke with quinn Rocha to use right upper arm picc line for iv access.
--- NOTE | 2020-03-27 18:24 | NUR ---
CLOSING NOTES: PATIENT EATING DINNER DURING ROUNDS.CALL LIGHT WITH IN REACH. BED LOCKED AT LOWEST POSITION.SAFETY MEASURES RENDERED.
--- NOTE | 2020-03-27 19:20 | NUR ---
OPENING NOTES Patient is resting, no signs of acute respiratory distress observed. IV site patent on red port only, dressings c/d/i. Oriented patient on plan of care and call light use. Call light within reach, bed alarm on, bed at lowest position. Will continue to monitor.
--- NOTE | 2020-03-27 22:40 | NUR ---
Patient ambulated to the restroom, no signs of distress noted. No other needs at this time. Will continue to monitor.
[2020-03-28 00:23] VITALS: BP_SYST 136
--- NOTE | 2020-03-28 01:20 | NUR ---
Patient asking for pain medication, explained to patient that patient cannot receive pain medication at this time. Helped patient reposition and provided warm blanket, patient states she is feeling better already. Will continue to monitor.
--- NOTE | 2020-03-28 04:26 | NUR ---
Patient ambulated to the bathroom, steady gait with the cane. Assisted with the nurse after patient called with the call light. Patient remembered that bed alarm would be on. Patient states pain is "not there" at this time. Will continue to monitor.
[2020-03-28] MEDS: NORMAL SALINE 5 ML DISP.SYRIN IVF SCH ×3 (06:42→21:04)
[2020-03-28] MEDS: ceFAZolin SODIUM 2 GM in D5W 100 ML IV SCH ×3 (06:43→22:25)
[2020-03-28 07:00] VITALS: BP_SYST 135
[2020-03-28 07:04] LABS: BASOPHILS % (AUTO) 0.7 % (0.0-2.0); EOSINOPHILS # (AUTO) 0.3 K/uL (0.0-0.4); EOSINOPHILS % (AUTO) 4.4 % (0.0-4.0); HEMATOCRIT 30.8 % (36-48); HEMOGLOBIN 10.2 g/dL (12.0-16.0); LYMPHOCYTES % (AUTO) 14.9 % (20.5-51.5); MEAN CORPUSCULAR HEMOGLOBIN 27 pg (27-31); MEAN CORPUSCULAR HGB CONC 33 % (32-36); MEAN CORPUSCULAR VOLUME 83 fL (79.0-98.0); MONOCYTES # (AUTO) 0.6 K/uL (0.0-1.0); MONOCYTES % (AUTO) 9.4 % (1.7-9.3); NEUTROPHILS # (AUTO) 4.6 K/uL (1.8-7.7); NEUTROPHILS % (AUTO) 70.6 % (40.0-70.0); PLATELET COUNT (AUTO) 318 K/uL (130-430); RED BLOOD CELL COUNT(AUTO) 3.73 MIL/uL (4.2-6.2); WHITE BLOOD COUNT (AUTO) 6.5 K/uL (4.8-10.8)
--- NOTE | 2020-03-28 07:18 | NUR ---
Nutrition Update Yoshi Scale 18 noted. Pt admitted for Cellulitis Diet: Regular BMI: 32 kg/m2 RD to follow per nutrition care standards.
[2020-03-28 07:29] LABS: ALANINE AMINOTRANSFERASE 11 U/L (12-78); ALBUMIN 2.8 g/dL (3.4-4.8); ANION GAP 6 (5-15); ASPARTATE AMINOTRANSFERASE 11 U/L (10-37); CALCIUM 9.2 mg/dL (8.4-11.0); CHLORIDE 104 mmol/L (98-107); GLUCOSE 96 mg/dL (70-99); POTASSIUM 3.6 mmol/L (3.5-5.1); SODIUM SERUM 138 mmol/L (136-145); TOTAL BILIRUBIN 0.2 mg/dL (0.0-1.0); UREA NITROGEN, BLOOD 16 mg/dL (8-21)
--- NOTE | 2020-03-28 07:39 | NUR ---
CLOSING NOTES Patient is asleep, no signs of distress noted. IV site patent on red port only, dressings c/d/i, IV antibiotic running. Reminded patient throughout night plan of care and pain medication indication, patient was comfortable after repositioning. All needs met throughout shift. Will endorse care to oncoming shift.
[2020-03-28 08:00] VITALS: BP_SYST 130
[2020-03-28] MEDS: VANCOMYCIN HCL 1,750 MG in NS 500 ML IV SCH (11:52)
[2020-03-28 12:15] VITALS: BP_SYST 123
[2020-03-28 16:19] VITALS: BP_SYST 133
--- NOTE | 2020-03-28 18:11 | NUR ---
PT IN NO ACUTE DISTRESS. PERIODS OF CONFUSION. LEFT HIP OPEN TO AIR NO OPEN SKIN. PT AMBULATED TO BATHROOM TWICE WITH ASSISTIVE DEVICE, CANE AND STANDBY ASSISTANCE. EDUCATED PATIENT TO CALL FOR ASSISTANCE WHEN AMBULATING. SPOKE WITH SON AND GAVE AN UPDATE. PER SON, KELLY [phone] MOTHER CAME FROM [facility]. SON REQUESTED UPDATES. PER MD, WILL IND LEFT HIP AND DRAIN. ALL VITALS WNL. POC TAKEN ACHS, NO COVERAGE GIVEN DURING MY SHIFT, BLOOD GLUCOSE WNL. ALL SAFETY PRECAUTIONS IN PLACE, CALL LIGHT WITHIN REACH. WILL CONTINUE TO MONITOR WILL ENDORSE PLAN OF CARE TO NEXT RN.
--- NOTE | 2020-03-28 19:30 | NUR ---
OPENING NOTES RECEIVED SBAR REPORT FROM DAY SHIFT RN. PT RESTING IN BED, ALERT & ORIENTED X4. BREATHING EVEN AND UNLABORED TO ROOM AIR. MINA PICC LINE INTACT, SL. NO S/S OF DISTRESS NOTED. CALL LIGHT WITHIN REACH. SIDE RAILS UP X3. BED LOCKED IN LOWEST POSITION. SAFETY AND FALL PRECAUTIONS ARE IN PLACE. WILL CONTINUE TO MONITOR.
[2020-03-28 20:00] VITALS: BP_SYST 127
--- NOTE | 2020-03-28 20:40 | NUR ---
SPOKE TO NIHARIKA (DAUGHTER) SPOKE TO NIHARIKA REGARDING PT UPDATES. CELL PHONE # [phone]. WORK PHONE # [phone].
--- NOTE | 2020-03-28 21:00 | NUR ---
ULTRAM/TRAMADOL PT REPORTING LEFT HIP PAIN. SPOKE TO NIHARIKA (DAUGHTER) IF IT IS OKAY TO GIVE PAIN MEDICATION TO PT. NIHARIKA STATED THAT IT IS OKAY TO GIVE ULTRAM PAIN MEDICATION TONIGHT. ADMINISTERED ULTRAM PAIN MEDICATION ORDERED PRN. DISCUSSED MEDICATION ACTIONS AND POTENTIAL SIDE EFFECTS. PT VERBALIZED UNDERSTANDING. BREATHING EVEN AND UNLABORED TO ROOM AIR. CALL LIGHT WITHIN REACH. SIDE RAILS UP X3. BED ALARM ON, LOCKED IN LOWEST POSITION. SAFETY AND FALL PRECAUTIONS MAINTAINED. WILL CONTINUE TO MONITOR.
[2020-03-28] MEDS: traMADol HCL HCL 50 MG TABLET (ULTRAM) PO PRN (22:25)
--- NOTE | 2020-03-28 22:25 | NUR ---
HUNG ANCEF HUNG ANCEF ORDERED RATE. NO S/S OF ADVERSE REACTION NOTED. PT TOLERATING WELL. CHEST RISE AND FALL SYMMETRICAL. BREATHING EVEN AND UNLABORED TO ROOM AIR. NO S/S OF DISTRESS NOTED. PT STATED THAT PAIN IS CONTROLLED AT THIS TIME. CALL LIGHT WITHIN REACH. SIDE RAILS UP. BED LOCKED IN LOWEST POSITION. SAFETY AND FALL PRECAUTIONS MAINTAINED. WILL CONTINUE TO MONITOR.
--- NOTE | 2020-03-29 00:10 | NUR ---
ACCU-CHECK BLOOD SUGAR OF 126. NO INSULIN COVERAGE PER SLIDING SCALE AT THIS TIME. PT RESTING IN BED. NO S/S OF SOB OR PAIN NOTED. CALL LIGHT WITHIN REACH. BED ALARM ON, LOCKED IN LOWEST POSITION. SAFETY AND FALL PRECAUTIONS ARE IN PLACE. WILL MONITOR.
[2020-03-29 00:34] VITALS: BP_SYST 148
[2020-03-29 00:43] VITALS: BP_SYST 126
--- NOTE | 2020-03-29 02:35 | NUR ---
RN ROUNDS PT SLEEPING. CHEST RISE AND FALL SYMMETRICAL. BREATHING EVEN AND UNLABORED TO ROOM AIR. O2 SAT 96%. ASSISTED PT TO BATHROOM. PT NOTED STEADY GAIT WITH CANE. PT BACK TO BED SAFELY. PT DENIES ANY PAIN AT THIS TIME. CALL LIGHT WITHIN REACH. BED ALARM ON, LOCKED IN LOWEST POSITION. SAFETY AND FALL PRECAUTIONS ARE IN PLACE. WILL MONITOR.
[2020-03-29] MEDS: NORMAL SALINE 5 ML DISP.SYRIN IVF SCH ×3 (05:30→22:42)
[2020-03-29] MEDS: ceFAZolin SODIUM 2 GM in D5W 100 ML IV SCH ×3 (06:13→22:42)
--- NOTE | 2020-03-29 06:51 | NUR ---
CLOSING NOTES PT RESTING IN BED. BREATHING EVEN AND UNLABORED TO ROOM AIR. NO S/S OF DISTRESS NOTED. PT DENIES ANY PAIN AT THIS TIME. ANCEF RUNNING ORDERED RATE. NO S/S OF ADVERSE REACTION NOTED. CALL LIGHT WITHIN REACH. SIDE RAILS UP X3. BED LOCKED IN LOWEST POSITION. SAFETY AND FALL PRECAUTIONS ARE IN PLACE. ALL NEEDS ARE MET THROUGHOUT SHIFT. WILL CONTINUE TO MONITOR UNTIL ENDORSE TO DAY SHIFT RN.
[2020-03-29 08:00] VITALS: BP_SYST 117
--- NOTE | 2020-03-29 08:00 | NUR ---
Note Pt assisted - standby assist - pt got OOB to restroom with her cane. No SOB/resp distress or severe left hip pain/discomfort was noted. MINA PICC intact and patent at this time. Pt kept NPO for possible surgery today. Pt states she is hungry and wants to eat something - reminded pt that she is going for surgery and needs to be NPO at this time. Call light within reach.
--- NOTE | 2020-03-29 10:08 | NUR ---
DR KIASER PAGED PAGED DR HILLIARD AT [phone] SPOKE TO [facility] [phone]
--- NOTE | 2020-03-29 10:45 | NUR ---
Note Pt resting in bed - pt keeps stating she is hungry and wants to eat. Pt requested that Dr Torrez be called to find out what time surgery is planned for today - so she can eat. Dr Torrez was paged at 0958am. Waiting for call back.
--- NOTE | 2020-03-29 11:30 | NUR ---
Dietitian Recommendations *Recommend: continue NPO per MD. *Advance diet when medically appropriate. (CCHO 2gm Na diet) please see Nutritional assessment for details. GONZALO, JOANNA
[2020-03-29] MEDS: VANCOMYCIN HCL 1,750 MG in NS 500 ML IV SCH (11:53)
[2020-03-29 12:06] VITALS: BP_SYST 112
--- NOTE | 2020-03-29 13:20 | NUR ---
Note Pt's daughter Marina was called at 1115am to notify her that Dr Torrez is taking her mother (pt) to OR around 2pm for surgery. Pt's daughter Marina stated that was okay and she wanted to call back this evening to see how the surgery went and what the plan of care was postop. OR had called at 11am to state Dr Torrez was coming to do surgery on pt at around 2pm. OR packet was made ready as much as we could without surgery consent being written or signed, OR aware and will get pt to sign the consent after Dr Torrez speaks to pt. Pt aware of surgery around 2pm as well. Pt resting in bed with Vanco IVPB infusing through MINA PICC. No needs noted at this time.
--- NOTE | 2020-03-29 13:25 | NUR ---
WOUND EVALUATION: Wound Consult received from Dr. Orellana. Thank you, Dr. Orellana, for the consult. Patient received in a Vel Bed with an IsoFlex CRAIG mattress, awake, alert, and oriented. Patient is unable to turn independently. Yoshi Score is a 15. Past Medical History: Hypertension, Diabetes Mellitus, bilateral hip replacement, Left Hip Cellulitis (since May, per patient report). Recent Labs: WBC 6.5, RBC 3.73, hemoglobin 10.2, hematocrit 30.8, glucose 100, POC glucose 128, ALT 11, albumin 2.8. Microbiology: Blood culture results x2 in progress. MRSA screen results negative. Intrinsic factors that delay wound healing: Diabetes Mellitus, Hypoalbuminemia. Extrinsic factors that delay wound healing: Decreased mobility. Wound Assessment: 1. Left Lateral Hip: Cellulitis with abscess, present on admission. Site has erythema, calor, and induration around abscess. No odor, no drainage. Site has small yellow scabbed area. Raised abscess area measures 0.5 cm x 0.7 cm. Entire erythematous site measures 10.5 cm x 5.0 cm. 2. Left Lateral Hip, inferior to site 1: Cellulitis with abscess, present on admission. Site has erythema, calor, and induration around abscess. No odor, no drainage. Site has small yellow scabbed area. Raised abscess area measures 1.0 cm x 0.9 cm. Entire erythematous site measures 10.5 cm x 5.0 cm. Recommend: No dressings needed. Continue to monitor sites qshift. Also recommend: Encourage and assist patient as needed with repositioning every 2 hours with pillow support and off-load pressure areas with pillows for pressure re-distribution. Offload, elevate and float bilateral heels with pillows. Perform skin care and monitor skin integrity Q shift. Use moisture barrier cream on buttocks and other moisture susceptible areas QID and as needed for soiling. Do not place patient on involved hip. Dr. Torrez is on surgical consult with possible surgery scheduled for today.
--- NOTE | 2020-03-29 15:00 | NUR ---
Note Dr Trujillo (Anes) on the floor speaking to pt - questions/concerns were answered at this time. Consent was signed by pt and Dr Trujillo. Pt resting in bed for OR to pick her and take her to surgery. Call light within reach.
[2020-03-29 16:10] VITALS: BP_SYST 130
--- NOTE | 2020-03-29 16:20 | NUR ---
Note Dr Torrez was called and surgeon stated he would be doing surgery on pt around 5-5.30pm. IVF's to be started on pt as pt is diabetic and blood sugars were going down during the shift. Pt had been saline locked all shift - except IVPB antibiotics.
[2020-03-29] MEDS: D5/0.45 NS 1,000 ML IV SCH (16:42)
--- NOTE | 2020-03-29 17:35 | NUR ---
Note Dr Orellana on the floor at pt's bedside assessing and answering questions/concerns at this time. No needs noted and pt resting with IVF's infusing through MINA PICC. Call light within reach.
--- NOTE | 2020-03-29 18:15 | NUR ---
Note Pt resting in bed, waiting for OR to pick her for surgery. OR was called, stated they are waiting for Dr Torrez to come. Pt was notified. No SOB/resp distress or pain/discomfort noted at this time. Pt was checked on q1' and PRN all shift for needs and care. Pt ambulated to restroom with her cane or IV pole and standby assist all shift. No needs noted at this time. Pt was maintained with safety precautions all shift. Call light within reach.
--- NOTE | 2020-03-29 19:30 | NUR ---
OPENING NOTES RECEIVED SBAR REPORT FROM DAY SHIFT RN. PT RESTING IN BED. BREATHING EVEN AND UNLABORED TO ROOM AIR. NO S/S OF ACUTE DISTRESS NOTED. MINA PICC INTACT, IVF RUNNING ORDERED RATE. CALL LIGHT WITHIN REACH. SIDE RAILS UP X3. BED LOCKED IN LOWEST POSITION. SAFETY AND FALL PRECAUTIONS ARE IN PLACE. WILL CONTINUE TO MONITOR.
[2020-03-29 20:00] VITALS: BP_SYST 133
--- NOTE | 2020-03-29 20:15 | NUR ---
PT TAKEN TO OR, TWO OR NURSE WERE PRESENT. PT WAS STABLE AT THIS TIME.
[2020-03-29] MEDS ORDERED: NEOSTIGMINE METHYLSULFATE 1 MG/ML, 10 ML VIAL IVP ONE (20:29)
[2020-03-29] MEDS ORDERED: ONDANSETRON HCL 4 MG/2 ML VIAL IVP ONE (20:29)
[2020-03-29] MEDS ORDERED: fentaNYL CITRATE 250 MCG/5 ML AMP IV ONE (20:29)
[2020-03-29] MEDS ORDERED: SEVOFLURANE 15 MIN GAS INH ONE (20:29)
[2020-03-29] MEDS ORDERED: GLYCOPYRROLATE 0.2 MG/ML VIAL IJ ONE (20:29)
[2020-03-29] MEDS ORDERED: SUCCINYLCHOLINE CHLORIDE 20 MG/ML(QUELICIN) IVP ONE (20:29)
[2020-03-29] MEDS ORDERED: LR 1,000 ML IV.SOLN IV ONE (20:29)
[2020-03-29] MEDS ORDERED: PROPOFOL 200MG/ 20ML VIAL (DIPRIVAN) IV ONE (20:29)
[2020-03-29] MEDS ORDERED: METOCLOPRAMIDE HCL 10 MG/2 ML VIAL IVP ONE (20:29)
[2020-03-29] MEDS ORDERED: POLYMYXIN 500,000/BACIT.10,000 UNITS in NS IRR 1 L IR ONE (20:33)
[2020-03-29] MEDS ORDERED: LR 1,000 ML IV SCH (21:34)
[2020-03-29] MEDS ORDERED: HYDROmorphone 1 MG INJ. 1 MG/ML AMPUL IVP PRN ×2 (21:45)
[2020-03-29] MEDS ORDERED: NALOXONE HCL 0.4 MG/ML AMP (NARCAN) IVP PRN (21:45)
[2020-03-29] MEDS ORDERED: ONDANSETRON HCL 4 MG/2 ML VIAL IVP PRN (21:45)
--- NOTE | 2020-03-29 22:32 | NUR ---
PT BACK FROM PACU PT BACK FROM PACU. RECEIVED REPORT FROM OR NURSE. VITAL SIGNS STABLE. O2 SAT 100% ROOM AIR. BREATHING EVEN AND UNLABORED TO ROOM AIR. PT DENIES PAIN AT THIS TIME. IVF RUNNING ORDERED RATE. PT TOLERATING WELL. CALL LIGHT WITHIN REACH. SIDE RAILS UP. BED ALARM ON, LOCKED IN LOWEST POSITION. SAFETY AND FALL PRECAUTIONS MAINTAINED. WILL CONTINUE TO MONITOR.
--- NOTE | 2020-03-29 22:51 | NUR ---
SPOKE TO NIHARIKA (DAUGHTER) SPOKE TO NIHARIKA REGARDING PT UPDATES. CELL PHONE # [phone].
[2020-03-30] VITALS: BP_SYST 132
--- NOTE | 2020-03-30 00:45 | NUR ---
RN ROUNDS PT SLEEPING. CHEST RISE AND FALL SYMMETRICAL. NO S/S OF SOB NOTED. NO S/S OF ACUTE DISTRESS NOTED. CALL LIGHT WITHIN REACH. BED ALARM ON, LOCKED IN LOWEST POSITION. SIDE RAILS UP X3. SAFETY AND FALL PRECAUTIONS ARE IN PLACE. WILL CONTINUE TO MONITOR.
[2020-03-30] MEDS: traMADol HCL HCL 50 MG TABLET (ULTRAM) PO PRN (01:47)
--- NOTE | 2020-03-30 01:47 | NUR ---
ULTRAM/TRAMADOL PT REPORTING LEFT HIP SURGICAL INCISION SITE PAIN. ADMINISTERED ULTRAM PAIN MEDICATION ORDERED PRN. DISCUSSED MEDICATION ACTIONS AND POTENTIAL SIDE EFFECTS. PT VERBALIZED UNDERSTANDING. BREATHING EVEN AND UNLABORED TO ROOM AIR. CALL LIGHT WITHIN REACH. SIDE RAILS UP X3. BED ALARM ON, LOCKED IN LOWEST POSITION. SAFETY AND FALL PRECAUTIONS MAINTAINED. WILL CONTINUE TO MONITOR.
--- NOTE | 2020-03-30 04:15 | NUR ---
RN ROUNDS PT SLEEPING. NO S/S OF DISTRESS NOTED. PAIN IS CONTROLLED AT THIS TIME. BREATHING EVEN AND UNLABORED TO ROOM AIR. MINA PICC LINE INTACT. IVF RUNNING ORDERED RATE. CALL LIGHT WITHIN REACH. BED ALARM ON, LOCKED IN LOWEST POSITION. SAFETY AND FALL PRECAUTIONS MAINTAINED. WILL MONITOR.
[2020-03-30 04:50] VITALS: BP_SYST 132
[2020-03-30] MEDS: D5/0.45 NS 1,000 ML IV SCH ×2 (05:36→19:10)
[2020-03-30] MEDS: ceFAZolin SODIUM 2 GM in D5W 100 ML IV SCH ×3 (06:12→22:19)
[2020-03-30] MEDS: NORMAL SALINE 5 ML DISP.SYRIN IVF SCH ×3 (06:13→21:30)
--- NOTE | 2020-03-30 06:46 | NUR ---
CLOSING NOTES PT RESTING IN BED. BLOOD SUGAR OF 134. NO INSULIN COVERAGE PER SLIDING SCALE AT THIS TIME. BREATHING EVEN AND UNLABORED TO ROOM AIR. NO S/S OF ACUTE DISTRESS NOTED. LEFT HIP/THIGH SURGICAL DRESSING INTACT, CLEAN AND DRY. MINA PICC INTACT, IVF RUNNING ORDERED RATE. CALL LIGHT WITHIN REACH. SIDE RAILS UP X3. BED LOCKED IN LOWEST POSITION. SAFETY AND FALL PRECAUTIONS ARE IN PLACE. ALL NEEDS ARE MET THROUGHOUT SHIFT. WILL CONTINUE TO MONITOR UNTIL ENDORSE TO DAY SHIFT RN.
--- NOTE | 2020-03-30 07:32 | NUR ---
OPENING NOTE Patient resting in the bed with eye closed, arousable. No acute distress. Skin warm and dry to touch. PICC line intact to MINA, no redness, no swelling, no drainage. On D5 1/2 NS at 75ml/hr, infusing well. Left hip surgical surgical dressing intact, no active bleeding noted at this time. Safety measure maintained. Bed locked in low position, side rails up, bed alarm on. Call light within reached. Will continue to monitor.
[2020-03-30 07:55] VITALS: BP_SYST 129
[2020-03-30] MEDS: DOCUSATE SODIUM 100 MG CAPSULE PO SCH ×2 (08:41→21:30)
--- NOTE | 2020-03-30 08:47 | NUR ---
REFUSED COLACE Educated the medication of Colace, the indication and possible side effect, verbally understanding. Patient refused Colace and stated " I don't need it, I never has problem of bowel. I always has twice a day, one in the morning, one in the afternoon. I had one last night". Safety measure maintained. Continue to monitor.
--- NOTE | 2020-03-30 10:13 | NUR ---
Dietitian Note Nutrition Consult received for Left Lateral Hip Abscess x2 w/ cellulitis 03/29/20 1348 Pt was seen 03/29 inside room 111B for Initial Nutritional Assessment. Please see Nutritional Assessment note 03/29/20. Per EMR review, pt is POD#1 S/P I&D of Left Hip and was seen by Photographic Lithographer yesterday 03/29. Diet has been advanced yesterday to CCHO diet and pt has been tolerating PO intake, no reports of abdominal discomfort. Pt visited again today inside room (110-B) to introduce Rambo and pt agreeable w/ RD rec. Pt may benefit from Rambo for post surgery healing. Pt c/o pain in incision site but otherwise doing well. Pt also reported having BM last night and stated that she has refused the stool softener this morning as she does not need it, she never had a problem w/ moving her bowels in the past. Dietitian Recommendation: *Recommend CCHO 2gm Na diet. *Add modular Rambo BID. JOANNA to follow per nutrition care standards. JOANNA SÁNCHEZ Addendum: 03/30/20 at [address] JOANNA placed phone call to , at [phone] from the answering service noted JOANNA's rec for Rambo and stated it will be sent to Dr. Orellana for diet order. JOANNA SÁNCHEZ Addendum: 03/30/20 at [address] At 1155, JOANNA received call back from Dr. Orellana who agrees w/ JOANNA rec for Rambo and diet order for TO/RB. JOANNA SÁNCHEZ
--- NOTE | 2020-03-30 10:22 | NUR ---
BATHROOM Ambulated patient to bathroom using cane and assistance. Per PT recommendation, patient better to use walker compare to cane. However, the patient refused to use walker and stated that "i don't know how to use it. I like to use my cane". Assisted back patient back to bed. Safety measure maintained. Call light within reached. Bed locked in low position, side rails up, bed alarm on. Continue to monitor.
--- NOTE | 2020-03-30 11:29 | NUR ---
Case Management: INTERVENTIONAL PAIN PHYSICIAN to follow on discharge planning, received Dr. Orellana order for pt. to be evaluated for Gerald. INTERVENTIONAL PAIN PHYSICIAN called and spoke with Opal from [place], . She said to [employer] packet to [phone]. INTERVENTIONAL PAIN PHYSICIAN did so. INTERVENTIONAL PAIN PHYSICIAN called Opal back at 11:31 to notify her that pt. has not bee on Tele. (Pt. has to be on Tele for at least 3 days to meet criteria). Opal thanks INTERVENTIONAL PAIN PHYSICIAN. INTERVENTIONAL PAIN PHYSICIAN spoke with MARSHA Obrien. INTERVENTIONAL PAIN PHYSICIAN will remain available to assist with DCP.
[2020-03-30 12:00] VITALS: BP_SYST 132
--- NOTE | 2020-03-30 12:29 | NUR ---
[id number] No insulin coverage needed per sliding scale. Patient no acute distress. Safety measure maintained. Call light within reached. Bed locked in low position, side rails up. continue to monitor.
[2020-03-30] MEDS: VANCOMYCIN HCL 1,750 MG in NS 500 ML IV SCH (12:47)
--- NOTE | 2020-03-30 13:30 | NUR ---
SEEN AND EXAMINED BY NEIL RECIO.
--- NOTE | 2020-03-30 14:55 | NUR ---
BATHROOM Ambulated patient to bathroom using cane and assistance. Void freely, no hematuria/dysuria noted. Assisted back patient back to bed. Safety measure maintained. Call light within reached. Bed locked in low position, side rails up, bed alarm on. Continue to monitor.
[2020-03-30 16:10] VITALS: BP_SYST 140
--- NOTE | 2020-03-30 16:25 | NUR ---
ROUND Patient resting in the bed and talking to family via phone. No acute distress. PICC line intact, IVF infusing well. Safety measure maintained. Call light within reached. Bed locked in low position, side rails up, bed alarm on. Continue to monitor.
[2020-03-30] MEDS: ENOXAPARIN SODIUM 40 MG/0.4 ML SYRINGE SUBCUT SCH (18:00)
[2020-03-30] MEDS ORDERED: ENOXAPARIN SODIUM 40 MG/0.4 ML SYRINGE SUBCUT ONE (18:30)
--- NOTE | 2020-03-30 18:58 | NUR ---
CLOSING NOTE Patient resting in the bed. No acute distress. Denied of pain during shift. Skin warm and dry to touch. PICC line intact to MINA, no redness, no swelling, no drainage. On D5 1/2 NS at 75ml/hr, infusing well. Left hip surgical surgical dressing intact, no active bleeding noted at this time. All needs met. Safety measure maintained. Bed locked in low position, side rails up, bed alarm on. Call light within reached. Will endorse to night nurse.
--- NOTE | 2020-03-30 19:20 | NUR ---
OPENING NOTES/REFUSED BED ALARM received report from day shift rn. pt resting in bed, no s/s of acute distress noted. pt on room air, tolerating well, breathing is unlabored. hob raised. no c/o any pain and sob at this time. skin is warm and dry to touch; no s/s of hypoglycemia noted. picc line patent, no signs of infiltration and infection noted; ivf infusing well. surgical incision dressing on left hip is dry and intact, no signs of bleeding noted. bed alarm is off, educated pt on importance having bed alarm on for safety, will encourage throughout shift. bed locked and at lowest position. call light with pt, verbalizes understanding and demonstrated back proper use of call light if assistance is needed, will continue to monitor.
[2020-03-30 20:00] VITALS: BP_SYST 143
--- NOTE | 2020-03-30 21:00 | NUR ---
NOTES pt resting, no s/s of acute distress. fall and safety precautions in place, will continue to monitor.
[2020-03-30] MEDS: HYDROmorphone 2 MG/ML VIAL IVP PRN (21:31)
--- NOTE | 2020-03-30 23:00 | NUR ---
NOTES pt resting in bed, no signs of discomfort noted. safety and fall precautions maintained, will continue to monitor.
[2020-03-31] MEDS: VANCOMYCIN HCL 1,000 MG in NS 250 ML IV SCH ×2 (00:23→12:04)
[2020-03-31 00:27] VITALS: BP_SYST 121
--- NOTE | 2020-03-31 01:00 | NUR ---
NOTES pt resting in bed, no s/s of acute distress noted. safety and fall precautions in place, will continue to monitor.
[2020-03-31] MEDS: HYDROmorphone 2 MG/ML VIAL IVP PRN (02:00)
--- NOTE | 2020-03-31 03:00 | NUR ---
NOTES pt sitting up in chair at this time, no signs of acute distress noted. fall and safety precautions in place, will continue to monitor.
--- NOTE | 2020-03-31 05:00 | NUR ---
NOTES pt asleep at this time. no signs of discomfort noted. fall and safety precautions in place, will continue to monitor.
[2020-03-31] MEDS: NORMAL SALINE 5 ML DISP.SYRIN IVF SCH ×3 (06:12→21:23)
[2020-03-31] MEDS: ceFAZolin SODIUM 2 GM in D5W 100 ML IV SCH ×3 (06:15→23:23)
--- NOTE | 2020-03-31 06:48 | NUR ---
CLOSING NOTES pt resting in bed, no s/s of acute distress noted. pt on room air, tolerating well, breathing is unlabored. hob raised. no c/o any pain and sob at this time. skin is warm and dry to touch; no s/s of hypoglycemia noted. picc line patent, no signs of infiltration and infection noted; ivf infusing well. surgical incision dressing on left hip is dry and intact, no signs of bleeding noted. pt refused SCD's, educated pt on benefits and purpose of having them on, encouraged pt throughout shift. bed alarm is off, educated pt on importance having bed alarm on for safety, encouraged throughout shift. bed locked and at lowest position. call light with pt, verbalizes understanding and demonstrated back proper use of call light if assistance is needed, all needs met throughout shift, will continue to monitor until report is given to day shift rn.
--- NOTE | 2020-03-31 07:22 | NUR ---
OPENING NOTE Patient resting in the bed. No acute distress. Skin warm and dry to touch. PICC line intact to MINA, no redness, no swelling, no drainage, covered with clean and dry transparent dressing. On D5 1/2 NS at 75ml/hr, infusing well. Left hip surgical dressing intact, no active bleeding noted at this time. Discussed the safety issue, use call light when needs help and plan of care, verbally understanding. Safety measure maintained. Bed locked in low position, side rails up, bed alarm on. Call light within reached. Will continue to monitor.
[2020-03-31 08:00] VITALS: BP_SYST 139
[2020-03-31] MEDS: D5/0.45 NS 1,000 ML IV SCH ×2 (08:04→21:23)
[2020-03-31] MEDS: DOCUSATE SODIUM 100 MG CAPSULE PO SCH ×2 (08:31→21:23)
[2020-03-31] MEDS: ENOXAPARIN SODIUM 40 MG/0.4 ML SYRINGE SUBCUT SCH (08:33)
--- NOTE | 2020-03-31 11:25 | NUR ---
BEDSIDE COMMODE PROVIDED Per patient too tire to go to bathroom, bedside commode provided. Safety measure maintained. Call light within reached. Continue to monitor.
--- NOTE | 2020-03-31 12:05 | NUR ---
LW=[id number] No insulin coverage needed per sliding scale. Patient resting in the bed, no acute distress. Safety measure maintained. Call light within reached. Bed locked in low position, side rails up. Continue to monitor.
--- NOTE | 2020-03-31 12:27 | NUR ---
DC Planning: discussed dcp with dr. Orellana: the pt had prosthetic joint infection /abscess with incision drainage on 03/30, planning for a repeat I/D in 2-[address] Orellana aware pt does not meet LTAC criteria. He will reassess for appropriate dc status, LTAC vs snf.
[2020-03-31 12:40] VITALS: BP_SYST 135
--- NOTE | 2020-03-31 13:44 | NUR ---
ROUND Patient resting in the bed. No acute distress. PICC line intact, covered with clean and dry dressing. Vancomycin infusing well. Safety measure maintained. Bed locked in low position, side rails up, bed alarm on. Call light within reached. Continue to monitor.
--- NOTE | 2020-03-31 15:20 | NUR ---
ROUND Patient resting in the bed with eye closed. No acute distress. PICC intact, IVF infusing well. Safety measure maintained. Call light within reached. Bed locked in low position, side rails up, bed alarm on. Continue to monitor.
[2020-03-31 16:10] VITALS: BP_SYST 130
--- NOTE | 2020-03-31 16:55 | NUR ---
BEDSIDE COMMODE Assist patient to use bedside commode. Safety measure maintained. Call light within reached. Continue to monitor.
--- NOTE | 2020-03-31 18:45 | NUR ---
SEEN AND EXAMINED BY VITALIY RECIO WITH ORDER RECEIVED.
--- NOTE | 2020-03-31 18:52 | NUR ---
CLOSING NOTE Patient resting in the bed. No acute distress. Skin warm and dry to touch. PICC line intact to MINA, no redness, no swelling, no drainage, covered with clean and dry transparent dressing.On D5 1/2 NS at 75ml/hr, infusing well. Left hip surgical surgical dressing intact, no active bleeding noted at this time. All needs met. Safety measure maintained. Bed locked in low position, side rails up, bed alarm on. Call light within reached. Will endorse to night nurse.
[2020-03-31] MEDS: traMADol HCL HCL 50 MG TABLET (ULTRAM) PO PRN (19:02)
[2020-03-31 20:00] VITALS: BP_SYST 135
--- NOTE | 2020-03-31 20:00 | NUR ---
INITIAL NOTES PATIENT IS STABLE AND LAYING IN BED. NO S/S OF RESPIRATORY DISTRESS NOTED. CALL LIGHT IN REACH. PATIENT SUCCESSFULLY DEMONSTRATES USAGE OF CALL LIGHT. BED IS LOCKED, AND LOWEST POSITION. PATIENT EDUCATED ON BED ALARM, PT REFUSED. PLAN OF CARE IS DISCUSSED WITH PATIENT. FALL, SAFETY, ASPIRATION, AND RESPIRATORY PRECAUTIONS WILL BE IN PLACE THROUGHOUT THE SHIFT.
--- NOTE | 2020-03-31 22:00 | NUR ---
ASSISTED PT TO BEDSIDE COMMODE. PT TOLERATED WELL. NO S/S OF RESPIRATORY DISTRESS NOTED. PT IS CURRENTLY IN BED AND STABLE.
--- NOTE | 2020-04-01 | NUR ---
PT IS STABLE AND SLEEPING IN BED. NO S/S OF RESPIRATORY DISTRESS NOTED. CALL LIGHT IN REACH
[2020-04-01 00:18] VITALS: BP_SYST 122
[2020-04-01] MEDS: VANCOMYCIN HCL 1,000 MG in NS 250 ML IV SCH ×2 (00:52→13:16)
--- NOTE | 2020-04-01 02:00 | NUR ---
PATIENT IS STABLE AND SLEEPING IN BED. NO S/S OF RESPIRATORY DISTRESS NOTED. CALL LIGHT IN REACH.
--- NOTE | 2020-04-01 04:00 | NUR ---
ASSISTED PT TO BEDSIDE COMMODE. PT TOLERATED WELL. NO S/S OF RESPIRATORY DISTRESS NOTED. PT IS CURRENTLY IN BED AND STABLE.
[2020-04-01] MEDS: NORMAL SALINE 5 ML DISP.SYRIN IVF SCH ×3 (06:29→22:09)
[2020-04-01] MEDS: ceFAZolin SODIUM 2 GM in D5W 100 ML IV SCH ×4 (06:30→22:09)
--- NOTE | 2020-04-01 06:46 | NUR ---
CLOSING NOTES PATIENT IS STABLE AND RESTING IN BED. NO S/S OF RESPIRATORY DISTRESS NOTED. CALL LIGHT IN REACH. BED IS LOCKED, AND AT THE LOWEST POSITION. FALL, SAFETY, ASPIRATION, AND RESPIRATORY PRECAUTIONS HAS BEEN IN PLACE THROUGHOUT THE SHIFT. WILL CONTINUE TO MONITOR UNTIL SBAR REPORT IS ENDORSE TO AM NURSE BY BEDSIDE.
--- NOTE | 2020-04-01 07:20 | NUR ---
Opening Note patient resting in bed, no signs of distress noted, respirations even and unlabored, a/o x 3, reoriented patient to event, denies any pain, IV line is patent and infusing well, assessment complete, safety measures put in place, bed locked and at lowest position, call light within reach, will monitor patient for any changes.
[2020-04-01 07:22] LABS: BASOPHILS % (AUTO) 0.6 % (0.0-2.0); EOSINOPHILS # (AUTO) 0.2 K/uL (0.0-0.4); EOSINOPHILS % (AUTO) 4.3 % (0.0-4.0); HEMOGLOBIN 9.6 g/dL (12.0-16.0); LYMPHOCYTES # (AUTO) 1.2 K/uL (1.0-5.5); LYMPHOCYTES % (AUTO) 23.6 % (20.5-51.5); MEAN CORPUSCULAR HEMOGLOBIN 27 pg (27-31); MEAN CORPUSCULAR HGB CONC 33 % (32-36); MEAN CORPUSCULAR VOLUME 83 fL (79.0-98.0); MONOCYTES # (AUTO) 0.5 K/uL (0.0-1.0); MONOCYTES % (AUTO) 10.6 % (1.7-9.3); NEUTROPHILS % (AUTO) 60.9 % (40.0-70.0); PLATELET COUNT (AUTO) 268 K/uL (130-430); RED BLOOD CELL COUNT(AUTO) 3.49 MIL/uL (4.2-6.2); RED CELL DISTRIBUTION WIDTH 18.2 % (9.0-15.0)
--- NOTE | 2020-04-01 07:40 | NUR ---
Called Ja spoke with Mike VERDUZCO, patient is not on the O.R. schedule yet today, asked Mike VERDUZCO to call if there is a scheduled time for the patient as the patient is NPO already, will follow up as needed. Addendum: 04/01/20 at 1028 by Mike Turner RN Called Ja again Spoke with Kalina, she has not yet heard from Dr. Torrez regarding surgery time for the patient today.
[2020-04-01 07:50] VITALS: BP_SYST 146
[2020-04-01] MEDS: DOCUSATE SODIUM 100 MG CAPSULE PO SCH ×2 (09:00→22:08)
[2020-04-01] MEDS: ENOXAPARIN SODIUM 40 MG/0.4 ML SYRINGE SUBCUT SCH (09:00)
--- NOTE | 2020-04-01 09:00 | NUR ---
Medication non administration of medication for patient due to NPO status in regards to possible surgery coming up, will follow up for surgery confirmation.
--- NOTE | 2020-04-01 10:28 | NUR ---
Paged Dr. Torrez to confirm surgery time and plan for the patient today, will follow up as needed.
--- NOTE | 2020-04-01 11:51 | NUR ---
Nutrition F/U Admitting Diagnosis Cellulitis Reviewed Pertinent Medical/Surgical Hx Medical Record Patient Other Medical History Comment: Pt presents w/: Left Hip Cellulitis, S/P Left Hip Prosthesis, S/P Sepsis, Hx of OA, HTN, DM per MD notes. Subjective Information Pt s/p I & D L hip (03/30) and planned for debridement and possible delayed primary closure on POD# 2-3 per MD note. Pt was at restroom during RD visit w/ DAX Weber at bedside. RN stated pt currently on NPO for possible surgery procedure but pt was not on operation room schedule yet for today and is a/w for updates from MD. RN stated pt ate good prior on NPO and pt w/ good PO intake of 83% average x last 6 meals per EMR. Noted POC BG at 134 mg/dl and no new updates for other labs since 03/28. Current Diet Order/Nutrition Support NPO Pertinent Medications Vancomycin, SSI, Zofran, Colace, Lovenox Pertinent Labs 04/01 POC BG 134H, 03/28 Na 138WNL, K 3.6WNL, BG 96WNL, BUN 16WNL, CRE 0.80WNL Skin Integrity Comment: Yoshi scale: 116. No pressure injury. +erythema to L head and incision to Left hip. Per RN notes, non-pitting edema to Left hip. Current % PO Good (75-100%): 83% Estimated Energy Expenditure (kcals/day) 5467-4124 kcal/day (25-30 kcal/kg for Geriatric maintenance) Estimated Protein Required (g/day) 59-71gm/day (1-1.2 gm/kg IBW for Geriatric maintenance) Estimated Fluid Required (l/day) 1.5 L/day (25ml/kg IBW for maintenance) Problem/Etiology/Signs/Symptoms Suboptimal nutrient intake r/t therapeutic diet Rx AEB NPO and a/w surgery. *ongoing Altered nutrition-related labs r/t endocrine dysfunction AEB elevated POC BG lab values and Hx of DM. *ongoing Expected Outcomes/Goals Monitor appetite and PO intake w/ goal of pt meeting more than 75% of estimated nutritional needs, labs trending WNL, normal GI function, skin integrity/wt maintenance. Dietitian Recommendations *Recommend: continue NPO per MD. *Advance diet when medically appropriate. (CCHO 2gm Na diet) * When diet advanced per MD, recommend continue Rambo BID. Follow Up High Risk: F/U in 2-3days
--- NOTE | 2020-04-01 12:00 | NUR ---
RN Rounds patient resting in bed awake, respirations even and unlabored, accucheck completed, will continue to monitor for any changes, safety measures maintained.
--- NOTE | 2020-04-01 12:23 | NUR ---
Dietitian Recommendations *Recommend: continue NPO per MD. *Advance diet when medically appropriate. (CCHO 2gm Na diet) * When diet advanced per MD, recommend continue Rambo BID. Please see Nutrition F/U for details. JOANNA RIOS
[2020-04-01 12:50] VITALS: BP_SYST 121
--- NOTE | 2020-04-01 13:16 | NUR ---
RN Rounds/medications patient resting in bed and awake, no signs of distress noted, administered medication, patient tolerated well, no other needs at this time, will continue to monitor, safety measures put in place.
--- NOTE | 2020-04-01 14:40 | NUR ---
Follow up on surgery Dr. Khan is tongue presser for Dr. Torrez - no call back yet from Dr. Torrez regarding surgery time or plan, continuing to follow up.
[2020-04-01 15:22] VITALS: BP_SYST 152
--- NOTE | 2020-04-01 15:45 | NUR ---
Spoke with Dr. Torrez surgery confirmed for 1630 today.
--- NOTE | 2020-04-01 16:04 | NUR ---
RN Rounds/Medications patient in bed resting, administered medication, patient tolerated well, bed locked and at lowest position, call light within reach, will monitor patient for any changes.
--- NOTE | 2020-04-01 17:11 | NUR ---
Surgery Follow up Spoke with OR nurse, surgery is still confirmed, waiting on Dr. Torrez at this time, will follow up as needed.
--- NOTE | 2020-04-01 17:40 | NUR ---
Patient to OR stable condition.
[2020-04-01] MEDS ORDERED: POLYMYXIN 500,000/BACIT.10,000 UNITS in NS IRR 1 L IR ONE (17:49)
[2020-04-01] MEDS ORDERED: ONDANSETRON HCL 4 MG/2 ML VIAL IVP PRN (18:15)
[2020-04-01] MEDS ORDERED: fentaNYL CITRATE/PF 100 MCG/2 ML AMP IVP PRN ×2 (18:15)
[2020-04-01] MEDS ORDERED: fentaNYL CITRATE/PF 100 MCG/2 ML AMP ONE (19:01)
[2020-04-01 20:00] VITALS: BP_SYST 138
[2020-04-01] MEDS: D5/0.45 NS 1,000 ML IV SCH (21:10)
[2020-04-01] MEDS: traMADol HCL HCL 50 MG TABLET (ULTRAM) PO PRN (23:03)
[2020-04-01] MEDS: HYDROmorphone 2 MG/ML VIAL IVP PRN (23:46)
--- NOTE | 2020-04-02 00:10 | NUR ---
Pt arrived from OR at approximately 1999. Report received from INFECTION CONTROL SPECIALISTDAX Nunez. Pt c/o pain earlier and given ultram 50mg - after 45 min intervention ineffective. Repeat BP showed 139/71 and pulse of 65. Pain at 9. Pt given Dilaudid 2mg IVP. Medication showed effectiveness by 04/02/20 @ 0020 with pain level dropping to 7. Instructed pt to call again before 0200 if pain returning. Pt verbalized understanding.
[2020-04-02 00:30] VITALS: BP_SYST 128
[2020-04-02] MEDS: VANCOMYCIN HCL 1,000 MG in NS 250 ML IV SCH ×2 (01:07→12:44)
[2020-04-02] MEDS: D5/0.45 NS 1,000 ML IV SCH ×2 (01:08→13:50)
[2020-04-02] MEDS: HYDROmorphone 2 MG/ML VIAL IVP PRN (03:15)
[2020-04-02] MEDS: NORMAL SALINE 5 ML DISP.SYRIN IVF SCH ×3 (07:51→22:00)
[2020-04-02 08:00] VITALS: BP_SYST 138
[2020-04-02] MEDS: DOCUSATE SODIUM 100 MG CAPSULE PO SCH ×2 (08:51→22:00)
[2020-04-02] MEDS: ceFAZolin SODIUM 2 GM in D5W 100 ML IV SCH ×3 (08:52→22:11)
[2020-04-02 09:48] LABS: BASOPHILS # (AUTO) 0.1 K/uL (0.0-0.2); BASOPHILS % (AUTO) 0.7 % (0.0-2.0); EOSINOPHILS # (AUTO) 0.2 K/uL (0.0-0.4); EOSINOPHILS % (AUTO) 2.8 % (0.0-4.0); HEMATOCRIT 30.6 % (36-48); HEMOGLOBIN 10.1 g/dL (12.0-16.0); LYMPHOCYTES # (AUTO) 1.2 K/uL (1.0-5.5); LYMPHOCYTES % (AUTO) 15.3 % (20.5-51.5); MEAN CORPUSCULAR HEMOGLOBIN 27 pg (27-31); MEAN CORPUSCULAR HGB CONC 33 % (32-36); MEAN CORPUSCULAR VOLUME 83 fL (79.0-98.0); MONOCYTES # (AUTO) 0.7 K/uL (0.0-1.0); MONOCYTES % (AUTO) 9.7 % (1.7-9.3); NEUTROPHILS # (AUTO) 5.4 K/uL (1.8-7.7); NEUTROPHILS % (AUTO) 71.5 % (40.0-70.0); PLATELET COUNT (AUTO) 273 K/uL (130-430); RED BLOOD CELL COUNT(AUTO) 3.69 MIL/uL (4.2-6.2); RED CELL DISTRIBUTION WIDTH 18.2 % (9.0-15.0); WHITE BLOOD COUNT (AUTO) 7.6 K/uL (4.8-10.8)
[2020-04-02] MEDS: ENOXAPARIN SODIUM 40 MG/0.4 ML SYRINGE SUBCUT SCH (10:16)
--- NOTE | 2020-04-02 10:20 | NUR ---
the elder, mrs Womack, dangling, and finished her whole breakfast, denied pain on L upper hip, posterior, dressing looked clean, no drainage noted. " felt better after the I and D on 04/01. Using bsc, self care
[2020-04-02 12:55] VITALS: BP_SYST 123
[2020-04-02 16:00] VITALS: BP_SYST 159
[2020-04-02 17:08] VITALS: BP_SYST 120
[2020-04-02] MEDS ORDERED: levoFLOXacin 500 MG TABLET PO ONE (18:00)
[2020-04-02 20:00] VITALS: BP_SYST 139
[2020-04-02] MEDS: HYDROcodone/ACETAMIN 5-325 MG TAB (NORCO/ VICODIN) PO PRN (22:01)
--- NOTE | 2020-04-02 23:50 | NUR ---
PT DEMANDING SLEEP - AND REQUESTING THAT IV BE SHUT OFF WHILE NOT ON ABX TX. HER REASONING IS THAT "THE IVF MAKES ME PEE EVERY 15 MINUTES AND SO I CAN'T SLEEP." PT AGREED TO HAVE VANCO ABX AT 0100 AND THEN IV SHUT OFF WHEN VANCO COMPLETES.
[2020-04-03] MEDS: VANCOMYCIN HCL 1,000 MG in NS 250 ML IV SCH ×2 (00:15→11:21)
[2020-04-03 01:13] VITALS: BP_SYST 126
[2020-04-03] MEDS: NORMAL SALINE 5 ML DISP.SYRIN IVF SCH ×3 (06:00→21:20)
[2020-04-03 08:00] VITALS: BP_SYST 155
[2020-04-03] MEDS: DOCUSATE SODIUM 100 MG CAPSULE PO SCH ×2 (08:56→21:03)
[2020-04-03] MEDS: ENOXAPARIN SODIUM 40 MG/0.4 ML SYRINGE SUBCUT SCH (08:57)
[2020-04-03] MEDS ORDERED: levoFLOXacin 500 MG TABLET PO SCH (10:00)
[2020-04-03 12:13] VITALS: BP_SYST 141
--- NOTE | 2020-04-03 15:47 | NUR ---
DC Planning: per Opal, pt is BPCI and not accepted for LTAC. Dr Orellana made aware. requested dcp to send pt back to [facility].-- SERGIO Quigley made aware. Addendum: 04/03/20 at 1556 by Camille Soriano RN >> Referral package faxed to Lesly Dorsey [facility] # [phone] attn : Michell, tel # [phone].
[2020-04-03] MEDS: D5/0.45 NS 1,000 ML IV SCH ×2 (16:30→21:03)
[2020-04-03 16:42] VITALS: BP_SYST 136
[2020-04-03 20:00] VITALS: BP_SYST 136
[2020-04-03] MEDS: HYDROmorphone 2 MG/ML VIAL IVP PRN (20:34)
[2020-04-03] MEDS: HYDROcodone/ACETAMIN 5-325 MG TAB (NORCO/ VICODIN) PO PRN (21:05)
[2020-04-03 21:20] VITALS: BP_SYST 133
[2020-04-04] VITALS (8 sets, daily range): BP systolic 112–149
[2020-04-04] MEDS: VANCOMYCIN HCL 1,000 MG in NS 250 ML IV SCH ×2 (00:38→12:07)
[2020-04-04] MEDS: D5/0.45 NS 1,000 ML IV SCH (05:50)
[2020-04-04] MEDS: NORMAL SALINE 5 ML DISP.SYRIN IVF SCH ×2 (07:12→14:00)
--- NOTE | 2020-04-04 07:28 | NUR ---
Handoff with DAX Yi. Ganga Urbina,
[2020-04-04] MEDS: DOCUSATE SODIUM 100 MG CAPSULE PO SCH (09:28)
[2020-04-04] MEDS: ENOXAPARIN SODIUM 40 MG/0.4 ML SYRINGE SUBCUT SCH (09:34)
--- NOTE | 2020-04-04 11:22 | NUR ---
Nutrition F/U Admitting Diagnosis: Cellulitis Medical History Comment: Pt presents w/: Left Hip Cellulitis, S/P Left Hip Prosthesis, S/P Sepsis, Hx of OA, HTN, DM per MD notes. SARS-CoV-2 Ag Rapid test Negative 03/29 Subjective Information Pt was seen in bed, resting and watching videos on her phone, in Room 110T-B. Pt reported of good appetite and tolerating diet well. Last BM was last night. Per EMR review, pt was on Rambo BID for wound healing on 03/30, diet was cancelled on 04/01 for surgery then was advanced to [facility] on 04/02. Pt however reported that she didn't like the rambo and agreed to discontinue. Pt was encouraged to increase protein intake. Current Diet Order/Nutrition Support: [facility] diet Pertinent Medications Vancomycin, SSI, Zofran, Colace, Lovenox Pertinent Labs 04/04 POC BG 113H, 03/28 Na 138WNL, K 3.6WNL, BG 96WNL, BUN 16WNL, CRE 0.80WNL Skin Integrity Comment: Yoshi scale: 19. Per Forensic Dna Analyst note 03/29: Cellulitis w/ abscess Left Lateral Hip. No edema noted per RN Current % PO Good (75-100%): 83% average of 6 meals in 2 days Estimated Energy Expenditure (kcals/day) 3834-7078 kcal/day (25-30 kcal/kg for Geriatric maintenance) Estimated Protein Required (g/day) 59-71gm/day (1-1.2 gm/kg IBW for Geriatric maintenance) Estimated Fluid Required (l/day) 1.5 L/day (25ml/kg IBW for maintenance) Problem/Etiology/Signs/Symptoms Suboptimal nutrient intake r/t therapeutic diet Rx AEB NPO and a/w surgery. *improved, w/ diet order Altered nutrition-related labs r/t endocrine dysfunction AEB elevated POC BG lab values and Hx of DM. *ongoing Expected Outcomes/Goals Monitor appetite and PO intake w/ goal of pt meeting more than 75% of estimated nutritional needs, labs trending WNL, normal GI function, skin integrity/wt maintenance. Dietitian Recommendations *Continue [facility] diet as ordered. Follow Up Moderate Risk: F/U in 3-5days
--- NOTE | 2020-04-04 11:37 | NUR ---
Dietitian Recommendations *Continue [facility] diet as ordered. Please see Nutrition F/U note for details. JOANNA SÁNCHEZ
--- NOTE | 2020-04-04 15:23 | NUR ---
alert, oriented, and appropriate, denied pain. Dangling , ambulatory. Med-surgical patient now, and will be transferred back to [facility] for the continuation of abx Vancomycin per ID , dr Christensen.
--- NOTE | 2020-04-04 16:27 | NUR ---
SS NOTES/DCP: C D STILL OPERATOR called to follow up with Michell (@08:55 and 13:28) from [facility] regarding placement, SNF DON is unavailable at the moment but will call CM on the decision. CM aware. Addendum: 04/04/20 at 1633 by Vida MEZA C D STILL OPERATOR left messages for shanda Gray to call back, unsure if agreeable to send patient back to [facility]. CM aware and will follow up.
[2020-04-04] MEDS: HYDROmorphone 2 MG/ML VIAL IVP PRN ×2 (16:28→17:33)
--- NOTE | 2020-04-04 18:06 | NUR ---
CONFIRMED WITH JOE KING THE ROOM ASSIGNED, RM 208 B. ARRANGED WITH [facility] TO TAKE PT TO [facility]. EMANATIONS ANALYSIS TECHNICIAN TIME IS 1929. SPOKE TO JESSICA.
[2020-04-04] MEDS ORDERED: VANC1PIG (18:18)
--- NOTE | 2020-04-04 19:51 | NUR ---
D/C Patient Patient given medication reconciliation form and D/C instructions. Exit Care provided. Patient verbalized understanding. MD discussed with patient the results and treatment provided when md do their rounds. Ambulatory with steady gait for discharge to home. Patient in stable condition, ID band removed. pic line on right upper arm intact and patent. Patient educated on pain management. All belongings sent with patient.HPI pocket given to ambulance crew.
== END 2020-04-04 19:55 | DRG 872 ==
LOC: SED 23:58 → SMU 03-27 05:32 → STU 03-31 22:16
PROVIDERS: ADMIT Internal Medicine; ATTEND Internal Medicine
PROC: 0J9M0ZX Drainage of Left Upper Leg Subcutaneous Tissue and Fascia, Open Approach, Diagnostic (ICD-10-PCS; principal; 2020-03-28)
PROC: 0J9M0ZX Drainage of Left Upper Leg Subcutaneous Tissue and Fascia, Open Approach, Diagnostic (ICD-10-PCS; 2020-04-01)
DX: A41.9 Sepsis, unspecified organism (principal); T84.52XA Infection and inflammatory reaction due to internal left hip prosthesis, initial encounter; L03.116 Cellulitis of left lower limb; L02.416 Cutaneous abscess of left lower limb; E44.0 Moderate protein-calorie malnutrition; R64 Cachexia; I10 Essential (primary) hypertension; Z20.828 Contact with and (suspected) exposure to other viral communicable diseases; E11.9 Type 2 diabetes mellitus without complications; E78.5 Hyperlipidemia, unspecified; Y83.9 Surgical procedure, unspecified as the cause of abnormal reaction of the patient, or of later complication, without mention of misadventure at the time of the procedure; M19.90 Unspecified osteoarthritis, unspecified site; X58.XXXA Exposure to other specified factors, initial encounter; Z79.899 Other long term (current) drug therapy; Z79.4 Long term (current) use of insulin; Y92.89 Other specified places as the place of occurrence of the external cause
CPT/HCPCS: 36415; 71045; 72170-TC; 80053; 80202-TC; 82962; 85025; 86140; 87040-TC; 87070-TC; 87075-TC; 87081; 87205-TC; 88304; 93005; 94010; 96365; 96375; 97110-GP; 97116-GP; 97530-GP; 99285; G0378; J0330; J0690; J0696; J1170; J1650; J1815; J2001; J2250; J2270; J2405; J2704; J2710; J2765; J3010; J3370; J3490; J7030; J7040; J7042; J7050; J7060; J7120

== ENCOUNTER 2020-07-04 18:20 | Emergency (ER) | payer OTHER, MEDICAID, SELFPAY ==
[~2020-07-04] VITALS: Ht 175.3 cm; Wt 81.6 kg
[~2020-07-04 18:20] MED LIST changes: +ACET325T PO; +DEXT50DI5 IV; +GLUC1KIT I.M.; -MELO15TA13 PO; +MEMA10TA PO; -MEMA1CAP3 PO; +MULT-1100 PO; -SER25 PO; +SSREG SUBCUT
[2020-07-04 18:41] VITALS: BP_SYST 123
--- NOTE | 2020-07-04 18:50 | NUR ---
Patient triaged and placed in waiting room. VSS and patient appears in no acute distress at this time. Accompanied by self , awaiting available bed, and MD notified of need for MSE.
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
--- NOTE | 2020-07-04 19:40 | NUR ---
ER Dr. BARKLEY at bedside examining patient.
--- NOTE | 2020-07-04 20:30 | NUR ---
Hayden ragland in ED - 07/05/20 at 0001 by JOSE A RADHA BARKLEY at bedside examining patient.
[2020-07-04 21:09] VITALS: BP_SYST 123
--- NOTE | 2020-07-04 21:09 | NUR ---
Patient given written and verbal discharge instructions and verbalizes understanding. DR. RODOLFO MELENDEZ discussed with patient the results and treatment provided. Patient in stable condition. ID arm band removed. Patient educated on pain management and to follow up with PMD. Pain Scale 0/10. Opportunity for questions provided and answered.
== END 2020-07-04 21:09 | disposition home or self-care (01) ==
LOC: SED 18:20
DX: S16.1XXA Strain of muscle, fascia and tendon at neck level, initial encounter (principal); I10 Essential (primary) hypertension; E11.9 Type 2 diabetes mellitus without complications; Z79.899 Other long term (current) drug therapy; Z79.82 Long term (current) use of aspirin; Z79.4 Long term (current) use of insulin; V49.69XA Unspecified car occupant injured in collision with other motor vehicles in traffic accident, initial encounter; Y93.89 Activity, other specified; Y92.413 State road as the place of occurrence of the external cause; Y99.8 Other external cause status
CPT/HCPCS: 70450-TC; 72125-TC; 76376; 99285

== ENCOUNTER 2020-07-16 15:05 | Inpatient (IN) | payer OTHER, MEDICAID, SELFPAY ==
[~2020-07-16] VITALS: Ht 170.2 cm; Wt 83.9 kg
[2020-07-16 15:15] VITALS: BP_SYST 105
[2020-07-16] MEDS ORDERED: MEROPENEM 1 GM IVPB PREMIX 50 ML IV ONE (15:45)
[2020-07-16] MEDS ORDERED: VANCOMYCIN HCL 1,000 MG in NS 250 ML IV ONE (15:45)
[2020-07-16] MEDS ORDERED: VANCOMYCIN HCL 1000 MG/VIAL IV ONE (15:58)
[2020-07-16 16:52] LABS: BASOPHILS % (AUTO) 0.3 % (0.0-2.0); EOSINOPHILS # (AUTO) 0.3 K/uL (0.0-0.4); EOSINOPHILS % (AUTO) 3.1 % (0.0-4.0); HEMATOCRIT 33.4 % (36-48); HEMOGLOBIN 11.1 g/dL (12.0-16.0); LYMPHOCYTES # (AUTO) 1.1 K/uL (1.0-5.5); LYMPHOCYTES % (AUTO) 12.4 % (20.5-51.5); MEAN CORPUSCULAR HEMOGLOBIN 27 pg (27-31); MEAN CORPUSCULAR HGB CONC 33 % (32-36); MEAN CORPUSCULAR VOLUME 81 fL (79.0-98.0); MONOCYTES # (AUTO) 0.5 K/uL (0.0-1.0); MONOCYTES % (AUTO) 5.7 % (1.7-9.3); NEUTROPHILS # (AUTO) 7.1 K/uL (1.8-7.7); NEUTROPHILS % (AUTO) 78.5 % (40.0-70.0); PLATELET COUNT (AUTO) 442 K/uL (130-430); RED BLOOD CELL COUNT(AUTO) 4.11 MIL/uL (4.2-6.2); RED CELL DISTRIBUTION WIDTH 16.3 % (9.0-15.0); WHITE BLOOD COUNT (AUTO) 9.1 K/uL (4.8-10.8)
[2020-07-16 17:00] LABS: ANION GAP 10 (5-15); CHLORIDE 102 mmol/L (98-107); CREATININE 1.04 mg/dL (0.55-1.30); GLUCOSE 122 mg/dL (70-99); POTASSIUM 3.8 mmol/L (3.5-5.1); SODIUM SERUM 140 mmol/L (136-145); UREA NITROGEN, BLOOD 18 mg/dL (8-21)
[2020-07-16] MEDS ORDERED: KETOROLAC TROMETHAMINE 30 MG VIAL IVP ONE (17:00)
[2020-07-16 17:06] LABS: ALANINE AMINOTRANSFERASE 16 U/L (12-78); ALBUMIN 2.9 g/dL (3.4-4.8); ASPARTATE AMINOTRANSFERASE 11 U/L (10-37); TOTAL BILIRUBIN 0.4 mg/dL (0.0-1.0)
[2020-07-16] MEDS ORDERED: LORazepam 2 MG/ML VIAL IVP PRN (17:45)
[2020-07-16] MEDS ORDERED: HYDROcodone/ACETAMIN 5-325 MG TAB (NORCO/ VICODIN) PO PRN (17:45)
[2020-07-16] MEDS ORDERED: INSULIN REGULAR, HUMAN 100 UNITS/ML, 10 ML VIAL (humuLIN R) SUBCUT PRN (17:45)
[2020-07-16] MEDS ORDERED: HYDROcodone/ACETAMIN 10-325 MG TAB PO PRN (17:45)
[2020-07-16] MEDS ORDERED: DEXTROSE 50% JECT 50 ML DISP.SYRIN IV PRN (17:45)
[2020-07-16] MEDS ORDERED: ACETAMINOPHEN 325 MG TABLET PO PRN (17:45)
[2020-07-16 20:34] VITALS: BP_SYST 122
[2020-07-16] MEDS: DONEPEZIL HCL 5 MG TABLET (ARICEPT) PO SCH (21:56)
[2020-07-16] MEDS: ATORVASTATIN 20 MG TABLET PO SCH (21:57)
[2020-07-16] MEDS: INSULIN GLARGINE 100 UNITS/ML 10 ML VIAL SUBCUT SCH (22:00)
[2020-07-16] MEDS ORDERED: NORMAL SALINE 5 ML DISP.SYRIN IVF SCH (22:00)
[2020-07-16] MEDS: NORMAL SALINE 5 ML DISP.SYRIN IVF SCH (22:04)
[2020-07-16] MEDS ORDERED: KETOROLAC TROMETHAMINE 30 MG VIAL IVP PRN (23:30)
[2020-07-17 00:05] VITALS: BP_SYST 117
[2020-07-17] MEDS ORDERED: MEROPENEM 1 GM VIAL IV ONE (01:36)
[2020-07-17] MEDS: ACETAMINOPHEN 325 MG TABLET PO PRN ×2 (03:38→10:25)
[2020-07-17] MEDS ORDERED: MEROPENEM 1 GM in NS 100 ML IV SCH ×3 (04:00→17:00)
[2020-07-17] MEDS: NORMAL SALINE 5 ML DISP.SYRIN IVF SCH ×3 (06:08→22:04)
[2020-07-17 08:00] VITALS: BP_SYST 120
[2020-07-17 08:55] LABS: BASOPHILS % (AUTO) 0.4 % (0.0-2.0); EOSINOPHILS # (AUTO) 0.2 K/uL (0.0-0.4); EOSINOPHILS % (AUTO) 2.6 % (0.0-4.0); LYMPHOCYTES # (AUTO) 0.7 K/uL (1.0-5.5); LYMPHOCYTES % (AUTO) 7.9 % (20.5-51.5); MEAN CORPUSCULAR HEMOGLOBIN 27 pg (27-31); MEAN CORPUSCULAR HGB CONC 34 % (32-36); MEAN CORPUSCULAR VOLUME 81 fL (79.0-98.0); MONOCYTES # (AUTO) 0.7 K/uL (0.0-1.0); MONOCYTES % (AUTO) 7.4 % (1.7-9.3); NEUTROPHILS # (AUTO) 7.5 K/uL (1.8-7.7); NEUTROPHILS % (AUTO) 81.7 % (40.0-70.0); PLATELET COUNT (AUTO) 375 K/uL (130-430); RED BLOOD CELL COUNT(AUTO) 3.73 MIL/uL (4.2-6.2); RED CELL DISTRIBUTION WIDTH 16.2 % (9.0-15.0); WHITE BLOOD COUNT (AUTO) 9.2 K/uL (4.8-10.8)
[2020-07-17] MEDS: amLODIPine BESYLATE 10 MG TABLET PO SCH (09:00)
[2020-07-17] MEDS: LOSARTAN POTASSIUM 50 MG TABLET (COZAAR) PO SCH (09:00)
[2020-07-17] MEDS: MULTIVITAMIN WITH MINERALS PO SCH (09:00)
[2020-07-17 09:08] LABS: ANION GAP 10 (5-15); CALCIUM 8.8 mg/dL (8.4-11.0); CHLORIDE 105 mmol/L (98-107); CREATININE 0.79 mg/dL (0.55-1.30); GLUCOSE 107 mg/dL (70-99); POTASSIUM 3.7 mmol/L (3.5-5.1); SODIUM SERUM 141 mmol/L (136-145); UREA NITROGEN, BLOOD 13 mg/dL (8-21)
[2020-07-17] MEDS: ASPIRIN 81 MG TAB.CHEW PO SCH (10:20)
[2020-07-17] MEDS: MEMANTINE HCL 5 MG TABLET PO SCH (10:20)
[2020-07-17 12:00] VITALS: BP_SYST 132
[2020-07-17] MEDS: KETOROLAC TROMETHAMINE 30 MG VIAL IVP PRN ×2 (14:28→22:05)
[2020-07-17 16:00] VITALS: BP_SYST 126
[2020-07-17] MEDS: VANCOMYCIN HCL 1 GM/NS PREMIX 250 ML IV SCH (16:36)
[2020-07-17 20:17] VITALS: BP_SYST 118
[2020-07-17] MEDS: ATORVASTATIN 20 MG TABLET PO SCH (21:55)
[2020-07-17] MEDS: DONEPEZIL HCL 5 MG TABLET (ARICEPT) PO SCH (21:55)
[2020-07-17] MEDS: PIPERACILLIN/TAZO 4.5GM/DEX-IS 100 ML IV SCH (21:55)
[2020-07-17] MEDS: INSULIN GLARGINE 100 UNITS/ML 10 ML VIAL SUBCUT SCH (22:09)
[2020-07-18] VITALS: BP_SYST 108
[2020-07-18] MEDS: VANCOMYCIN HCL 1 GM/NS PREMIX 250 ML IV SCH ×2 (04:45→16:02)
[2020-07-18] MEDS: NORMAL SALINE 5 ML DISP.SYRIN IVF SCH ×3 (06:05→22:39)
[2020-07-18] MEDS: PIPERACILLIN/TAZO 4.5GM/DEX-IS 100 ML IV SCH ×3 (06:05→22:38)
[2020-07-18] MEDS: KETOROLAC TROMETHAMINE 30 MG VIAL IVP PRN ×3 (06:13→20:51)
[2020-07-18 08:33] LABS: BASOPHILS # (AUTO) 0.1 K/uL (0.0-0.2); BASOPHILS % (AUTO) 0.7 % (0.0-2.0); EOSINOPHILS # (AUTO) 0.4 K/uL (0.0-0.4); EOSINOPHILS % (AUTO) 4.6 % (0.0-4.0); HEMATOCRIT 31.9 % (36-48); HEMOGLOBIN 10.5 g/dL (12.0-16.0); LYMPHOCYTES # (AUTO) 1.1 K/uL (1.0-5.5); LYMPHOCYTES % (AUTO) 12.1 % (20.5-51.5); MEAN CORPUSCULAR HEMOGLOBIN 27 pg (27-31); MEAN CORPUSCULAR HGB CONC 33 % (32-36); MEAN CORPUSCULAR VOLUME 81 fL (79.0-98.0); MONOCYTES # (AUTO) 0.7 K/uL (0.0-1.0); MONOCYTES % (AUTO) 7.7 % (1.7-9.3); NEUTROPHILS # (AUTO) 6.7 K/uL (1.8-7.7); NEUTROPHILS % (AUTO) 74.9 % (40.0-70.0); PLATELET COUNT (AUTO) 402 K/uL (130-430); RED BLOOD CELL COUNT(AUTO) 3.95 MIL/uL (4.2-6.2)
[2020-07-18 08:39] VITALS: BP_SYST 106
[2020-07-18 08:48] LABS: ALANINE AMINOTRANSFERASE 14 U/L (12-78); ALBUMIN 2.7 g/dL (3.4-4.8); ANION GAP 9 (5-15); ASPARTATE AMINOTRANSFERASE 15 U/L (10-37); CALCIUM 9.3 mg/dL (8.4-11.0); CHLORIDE 105 mmol/L (98-107); CREATININE 0.86 mg/dL (0.55-1.30); GLUCOSE 86 mg/dL (70-99); SODIUM SERUM 144 mmol/L (136-145); TOTAL BILIRUBIN 0.3 mg/dL (0.0-1.0); UREA NITROGEN, BLOOD 16 mg/dL (8-21)
[2020-07-18] MEDS: MEMANTINE HCL 5 MG TABLET PO SCH (08:50)
[2020-07-18] MEDS: ASPIRIN 81 MG TAB.CHEW PO SCH (08:51)
[2020-07-18] MEDS: MULTIVITAMIN WITH MINERALS PO SCH (08:51)
[2020-07-18] MEDS: amLODIPine BESYLATE 10 MG TABLET PO SCH (08:51)
[2020-07-18] MEDS: LOSARTAN POTASSIUM 50 MG TABLET (COZAAR) PO SCH (08:51)
[2020-07-18 12:23] VITALS: BP_SYST 143
[2020-07-18 12:25] LABS: C-REACTIVE PROTEIN QUANT 11.6 mg/dL (0-0.5)
[2020-07-18 16:00] VITALS: BP_SYST 140
[2020-07-18 20:00] VITALS: BP_SYST 144
[2020-07-18] MEDS: INSULIN GLARGINE 100 UNITS/ML 10 ML VIAL SUBCUT SCH (21:00)
[2020-07-18] MEDS: DONEPEZIL HCL 5 MG TABLET (ARICEPT) PO SCH (22:39)
[2020-07-18] MEDS: ATORVASTATIN 20 MG TABLET PO SCH (22:39)
[2020-07-19] VITALS: BP_SYST 138
[2020-07-19 00:03] LABS: ERYTHROCYTE SEDIMENTATION RATE 128 MM/HR (0-20)
[2020-07-19] MEDS: VANCOMYCIN HCL 1 GM/NS PREMIX 250 ML IV SCH (04:07)
[2020-07-19 06:55] LABS: BASOPHILS % (AUTO) 0.4 % (0.0-2.0); EOSINOPHILS # (AUTO) 0.3 K/uL (0.0-0.4); EOSINOPHILS % (AUTO) 4.4 % (0.0-4.0); HEMATOCRIT 28.7 % (36-48); HEMOGLOBIN 9.6 g/dL (12.0-16.0); LYMPHOCYTES # (AUTO) 1.2 K/uL (1.0-5.5); LYMPHOCYTES % (AUTO) 15.6 % (20.5-51.5); MEAN CORPUSCULAR HEMOGLOBIN 27 pg (27-31); MEAN CORPUSCULAR HGB CONC 34 % (32-36); MEAN CORPUSCULAR VOLUME 81 fL (79.0-98.0); MONOCYTES # (AUTO) 0.6 K/uL (0.0-1.0); NEUTROPHILS # (AUTO) 5.6 K/uL (1.8-7.7); NEUTROPHILS % (AUTO) 71.6 % (40.0-70.0); PLATELET COUNT (AUTO) 380 K/uL (130-430); RED BLOOD CELL COUNT(AUTO) 3.56 MIL/uL (4.2-6.2); RED CELL DISTRIBUTION WIDTH 15.7 % (9.0-15.0); WHITE BLOOD COUNT (AUTO) 7.8 K/uL (4.8-10.8)
[2020-07-19] MEDS: NORMAL SALINE 5 ML DISP.SYRIN IVF SCH ×3 (07:07→23:18)
[2020-07-19] MEDS: PIPERACILLIN/TAZO 4.5GM/DEX-IS 100 ML IV SCH ×3 (07:08→23:18)
[2020-07-19 07:46] LABS: ANION GAP 10 (5-15); CALCIUM 9.1 mg/dL (8.4-11.0); CHLORIDE 106 mmol/L (98-107); CREATININE 0.81 mg/dL (0.55-1.30); GLUCOSE 84 mg/dL (70-99); POTASSIUM 3.8 mmol/L (3.5-5.1); SODIUM SERUM 143 mmol/L (136-145); UREA NITROGEN, BLOOD 14 mg/dL (8-21)
[2020-07-19] MEDS: MULTIVITAMIN WITH MINERALS PO SCH (09:00)
[2020-07-19 10:49] LABS: C-REACTIVE PROTEIN QUANT 8.6 mg/dL (0-0.5)
[2020-07-19] MEDS: amLODIPine BESYLATE 10 MG TABLET PO SCH (12:11)
[2020-07-19] MEDS: MEMANTINE HCL 5 MG TABLET PO SCH (12:11)
[2020-07-19] MEDS: ASPIRIN 81 MG TAB.CHEW PO SCH (12:11)
[2020-07-19] MEDS: LOSARTAN POTASSIUM 50 MG TABLET (COZAAR) PO SCH (12:19)
[2020-07-19 12:25] VITALS: BP_SYST 131
[2020-07-19 13:23] LABS: ERYTHROCYTE SEDIMENTATION RATE 93 MM/HR (0-20)
[2020-07-19 16:37] VITALS: BP_SYST 121
[2020-07-19 20:00] VITALS: BP_SYST 134
[2020-07-19] MEDS: VANCOMYCIN HCL 750 MG in NS 250 ML IV SCH (20:08)
[2020-07-19] MEDS: DONEPEZIL HCL 5 MG TABLET (ARICEPT) PO SCH (20:26)
[2020-07-19] MEDS: ATORVASTATIN 20 MG TABLET PO SCH (20:26)
[2020-07-19] MEDS: KETOROLAC TROMETHAMINE 30 MG VIAL IVP PRN (20:28)
[2020-07-19] MEDS: INSULIN GLARGINE 100 UNITS/ML 10 ML VIAL SUBCUT SCH (20:28)
[2020-07-19] MEDS: ACETAMINOPHEN 325 MG TABLET PO PRN (23:20)
[2020-07-20] MEDS: KETOROLAC TROMETHAMINE 30 MG VIAL IVP PRN ×3 (03:42→22:50)
[2020-07-20] MEDS: PIPERACILLIN/TAZO 4.5GM/DEX-IS 100 ML IV SCH ×3 (05:39→21:45)
[2020-07-20] MEDS: NORMAL SALINE 5 ML DISP.SYRIN IVF SCH ×3 (05:39→22:46)
[2020-07-20 08:00] VITALS: BP_SYST 134
[2020-07-20 08:56] LABS: BILIRUBIN,URINE NEGATIVE (NEGATIVE); BLOOD, URINE NEGATIVE (NEGATIVE); CLARITY/URINE CLEAR (CLEAR); COLOR,URINE YELLOW (YELLOW); GLUCOSE,URINE NEGATIVE (NEGATIVE); KETONES,URINE NEGATIVE (NEGATIVE); LEUKOCYTE ESTERASE ,URINE NEGATIVE (NEGATIVE); NITRITE, URINE NEGATIVE (NEGATIVE); PH,URINE 6.5 (5.0-8.0); PROTEIN URINE NEGATIVE (NEGATIVE); UROBILINOGEN,URINE 0.2 (0.2-1.0)
[2020-07-20] MEDS: MULTIVITAMIN WITH MINERALS PO SCH (09:00)
[2020-07-20 09:07] LABS: BASOPHILS % (AUTO) 0.5 % (0.0-2.0); EOSINOPHILS # (AUTO) 0.2 K/uL (0.0-0.4); EOSINOPHILS % (AUTO) 3.6 % (0.0-4.0); HEMATOCRIT 30.9 % (36-48); HEMOGLOBIN 10.3 g/dL (12.0-16.0); INR 0.9 (0.8-1.2); LYMPHOCYTES # (AUTO) 1.4 K/uL (1.0-5.5); MEAN CORPUSCULAR HEMOGLOBIN 27 pg (27-31); MEAN CORPUSCULAR HGB CONC 33 % (32-36); MEAN CORPUSCULAR VOLUME 81 fL (79.0-98.0); MONOCYTES # (AUTO) 0.6 K/uL (0.0-1.0); MONOCYTES % (AUTO) 8.6 % (1.7-9.3); NEUTROPHILS # (AUTO) 4.6 K/uL (1.8-7.7); NEUTROPHILS % (AUTO) 67.3 % (40.0-70.0); PLATELET COUNT (AUTO) 399 K/uL (130-430); PROTHROMBIN TIME 9.7 SECS (9.5-12.5); RED BLOOD CELL COUNT(AUTO) 3.84 MIL/uL (4.2-6.2); RED CELL DISTRIBUTION WIDTH 16.3 % (9.0-15.0); WHITE BLOOD COUNT (AUTO) 6.8 K/uL (4.8-10.8)
[2020-07-20 09:11] LABS: ANION GAP 12 (5-15); CALCIUM 9.3 mg/dL (8.4-11.0); CHLORIDE 106 mmol/L (98-107); CREATININE 0.83 mg/dL (0.55-1.30); GLUCOSE 97 mg/dL (70-99); SODIUM SERUM 144 mmol/L (136-145); UREA NITROGEN, BLOOD 17 mg/dL (8-21)
[2020-07-20 10:42] LABS: ERYTHROCYTE SEDIMENTATION RATE 91 MM/HR (0-20)
[2020-07-20] MEDS: ASPIRIN 81 MG TAB.CHEW PO SCH (10:47)
[2020-07-20] MEDS: VANCOMYCIN HCL 750 MG in NS 250 ML IV SCH ×2 (10:47→22:46)
[2020-07-20] MEDS: MEMANTINE HCL 5 MG TABLET PO SCH (10:49)
[2020-07-20] MEDS: LOSARTAN POTASSIUM 50 MG TABLET (COZAAR) PO SCH (10:49)
[2020-07-20] MEDS: amLODIPine BESYLATE 10 MG TABLET PO SCH (10:50)
[2020-07-20 12:00] VITALS: BP_SYST 106
[2020-07-20 12:20] LABS: C-REACTIVE PROTEIN QUANT 6.4 mg/dL (0-0.5)
[2020-07-20] MEDS: ONDANSETRON HCL 4 MG/2 ML VIAL IVP PRN (13:15)
[2020-07-20 16:00] VITALS: BP_SYST 117
[2020-07-20 20:00] VITALS: BP_SYST 115
[2020-07-20] MEDS: INSULIN GLARGINE 100 UNITS/ML 10 ML VIAL SUBCUT SCH (21:00)
[2020-07-20] MEDS: DONEPEZIL HCL 5 MG TABLET (ARICEPT) PO SCH (22:37)
[2020-07-20] MEDS: ATORVASTATIN 20 MG TABLET PO SCH (22:37)
[2020-07-21] VITALS: BP_SYST 111
[2020-07-21] MEDS: PIPERACILLIN/TAZO 4.5GM/DEX-IS 100 ML IV SCH ×3 (07:03→23:01)
[2020-07-21] MEDS: NORMAL SALINE 5 ML DISP.SYRIN IVF SCH ×3 (07:03→22:08)
[2020-07-21 08:18] VITALS: BP_SYST 98
[2020-07-21 08:35] LABS: BASOPHILS % (AUTO) 0.6 % (0.0-2.0); EOSINOPHILS # (AUTO) 0.2 K/uL (0.0-0.4); EOSINOPHILS % (AUTO) 2.4 % (0.0-4.0); HEMATOCRIT 30.5 % (36-48); HEMOGLOBIN 10.2 g/dL (12.0-16.0); LYMPHOCYTES # (AUTO) 1.2 K/uL (1.0-5.5); LYMPHOCYTES % (AUTO) 15.5 % (20.5-51.5); MEAN CORPUSCULAR HEMOGLOBIN 27 pg (27-31); MEAN CORPUSCULAR HGB CONC 33 % (32-36); MEAN CORPUSCULAR VOLUME 81 fL (79.0-98.0); MONOCYTES # (AUTO) 0.6 K/uL (0.0-1.0); MONOCYTES % (AUTO) 8.5 % (1.7-9.3); NEUTROPHILS # (AUTO) 5.5 K/uL (1.8-7.7); PLATELET COUNT (AUTO) 382 K/uL (130-430); RED BLOOD CELL COUNT(AUTO) 3.78 MIL/uL (4.2-6.2); RED CELL DISTRIBUTION WIDTH 15.8 % (9.0-15.0); WHITE BLOOD COUNT (AUTO) 7.6 K/uL (4.8-10.8)
[2020-07-21] MEDS: LOSARTAN POTASSIUM 50 MG TABLET (COZAAR) PO SCH (09:00)
[2020-07-21] MEDS: amLODIPine BESYLATE 10 MG TABLET PO SCH (09:00)
[2020-07-21] MEDS: MULTIVITAMIN WITH MINERALS PO SCH (09:00)
[2020-07-21 09:17] LABS: ERYTHROCYTE SEDIMENTATION RATE 80 MM/HR (0-20)
[2020-07-21 09:19] LABS: ANION GAP 9 (5-15); CALCIUM 9.3 mg/dL (8.4-11.0); CHLORIDE 107 mmol/L (98-107); CREATININE 0.87 mg/dL (0.55-1.30); GLUCOSE 124 mg/dL (70-99); POTASSIUM 3.9 mmol/L (3.5-5.1); SODIUM SERUM 143 mmol/L (136-145); UREA NITROGEN, BLOOD 16 mg/dL (8-21)
[2020-07-21] MEDS: MEMANTINE HCL 5 MG TABLET PO SCH (09:53)
[2020-07-21] MEDS: ASPIRIN 81 MG TAB.CHEW PO SCH (09:53)
[2020-07-21] MEDS: KETOROLAC TROMETHAMINE 30 MG VIAL IVP PRN (10:04)
[2020-07-21 10:19] LABS: C-REACTIVE PROTEIN QUANT 4.3 mg/dL (0-0.5)
[2020-07-21] MEDS: ACETAMINOPHEN 325 MG TABLET PO PRN ×2 (11:43→21:02)
[2020-07-21] MEDS: VANCOMYCIN HCL 1,000 MG in NS 250 ML IV SCH (18:55)
[2020-07-21 20:00] VITALS: BP_SYST 138
[2020-07-21] MEDS: INSULIN GLARGINE 100 UNITS/ML 10 ML VIAL SUBCUT SCH (21:00)
[2020-07-21] MEDS: ATORVASTATIN 20 MG TABLET PO SCH (21:01)
[2020-07-21] MEDS: DONEPEZIL HCL 5 MG TABLET (ARICEPT) PO SCH (21:01)
[2020-07-22] VITALS: BP_SYST 146
[2020-07-22] MEDS: NORMAL SALINE 5 ML DISP.SYRIN IVF SCH ×3 (05:41→21:38)
[2020-07-22] MEDS: PIPERACILLIN/TAZO 4.5GM/DEX-IS 100 ML IV SCH ×3 (05:41→21:38)
[2020-07-22 08:43] LABS: BASOPHILS # (AUTO) 0.1 K/uL (0.0-0.2); BASOPHILS % (AUTO) 0.7 % (0.0-2.0); EOSINOPHILS # (AUTO) 0.2 K/uL (0.0-0.4); EOSINOPHILS % (AUTO) 2.8 % (0.0-4.0); HEMATOCRIT 29.3 % (36-48); HEMOGLOBIN 9.7 g/dL (12.0-16.0); LYMPHOCYTES # (AUTO) 1.1 K/uL (1.0-5.5); LYMPHOCYTES % (AUTO) 15.2 % (20.5-51.5); MEAN CORPUSCULAR HEMOGLOBIN 27 pg (27-31); MEAN CORPUSCULAR HGB CONC 33 % (32-36); MEAN CORPUSCULAR VOLUME 81 fL (79.0-98.0); MONOCYTES # (AUTO) 0.6 K/uL (0.0-1.0); MONOCYTES % (AUTO) 8.6 % (1.7-9.3); NEUTROPHILS # (AUTO) 5.4 K/uL (1.8-7.7); NEUTROPHILS % (AUTO) 72.7 % (40.0-70.0); PLATELET COUNT (AUTO) 360 K/uL (130-430); RED BLOOD CELL COUNT(AUTO) 3.61 MIL/uL (4.2-6.2); RED CELL DISTRIBUTION WIDTH 15.8 % (9.0-15.0); WHITE BLOOD COUNT (AUTO) 7.4 K/uL (4.8-10.8)
[2020-07-22] MEDS: MEMANTINE HCL 5 MG TABLET PO SCH (08:54)
[2020-07-22] MEDS: ASPIRIN 81 MG TAB.CHEW PO SCH (08:54)
[2020-07-22] MEDS: amLODIPine BESYLATE 10 MG TABLET PO SCH (08:55)
[2020-07-22] MEDS: MULTIVITAMIN WITH MINERALS PO SCH (09:00)
[2020-07-22 09:18] LABS: ALANINE AMINOTRANSFERASE 13 U/L (12-78); ALBUMIN 2.6 g/dL (3.4-4.8); ANION GAP 12 (5-15); ASPARTATE AMINOTRANSFERASE 8 U/L (10-37); CHLORIDE 106 mmol/L (98-107); CREATININE 0.85 mg/dL (0.55-1.30); GLUCOSE 117 mg/dL (70-99); POTASSIUM 3.9 mmol/L (3.5-5.1); SODIUM SERUM 143 mmol/L (136-145); TOTAL BILIRUBIN 0.2 mg/dL (0.0-1.0); UREA NITROGEN, BLOOD 18 mg/dL (8-21)
[2020-07-22 09:46] LABS: ERYTHROCYTE SEDIMENTATION RATE 78 MM/HR (0-20)
[2020-07-22 10:19] LABS: C-REACTIVE PROTEIN QUANT 3.6 mg/dL (0-0.5)
[2020-07-22 11:01] VITALS: BP_SYST 93
[2020-07-22 11:04] VITALS: BP_SYST 120
[2020-07-22 14:59] VITALS: BP_SYST 124
[2020-07-22] MEDS: VANCOMYCIN HCL 1,000 MG in NS 250 ML IV SCH (18:20)
[2020-07-22] MEDS: LOSARTAN POTASSIUM 50 MG TABLET (COZAAR) PO SCH (18:20)
[2020-07-22] MEDS: INSULIN GLARGINE 100 UNITS/ML 10 ML VIAL SUBCUT SCH (21:00)
[2020-07-22 21:28] VITALS: BP_SYST 106
[2020-07-22] MEDS: ATORVASTATIN 20 MG TABLET PO SCH (21:32)
[2020-07-22] MEDS: DONEPEZIL HCL 5 MG TABLET (ARICEPT) PO SCH (21:32)
[2020-07-23] MEDS: ACETAMINOPHEN 325 MG TABLET PO PRN ×2 (00:35→09:02)
[2020-07-23 00:41] VITALS: BP_SYST 138
[2020-07-23] MEDS: NORMAL SALINE 5 ML DISP.SYRIN IVF SCH ×3 (05:31→21:58)
[2020-07-23] MEDS: PIPERACILLIN/TAZO 4.5GM/DEX-IS 100 ML IV SCH ×3 (05:31→21:58)
[2020-07-23 08:00] VITALS: BP_SYST 113
[2020-07-23] MEDS: LOSARTAN POTASSIUM 50 MG TABLET (COZAAR) PO SCH (09:00)
[2020-07-23] MEDS: MULTIVITAMIN WITH MINERALS PO SCH (09:00)
[2020-07-23] MEDS: MEMANTINE HCL 5 MG TABLET PO SCH (09:01)
[2020-07-23] MEDS: amLODIPine BESYLATE 10 MG TABLET PO SCH (09:01)
[2020-07-23] MEDS: ASPIRIN 81 MG TAB.CHEW PO SCH (09:01)
[2020-07-23 12:00] VITALS: BP_SYST 146
[2020-07-23] MEDS ORDERED: NALOXONE HCL 0.4 MG/ML AMP (NARCAN) IVP PRN (12:15)
[2020-07-23] MEDS ORDERED: HYDROcodone/ACETAMIN 10-325 MG TAB PO PRN (12:15)
[2020-07-23] MEDS: HYDROcodone/ACETAMIN 5-325 MG TAB (NORCO/ VICODIN) PO PRN ×2 (12:24→21:51)
[2020-07-23 16:23] VITALS: BP_SYST 136
[2020-07-23] MEDS: VANCOMYCIN HCL 1,000 MG in NS 250 ML IV SCH (18:56)
[2020-07-23 20:15] VITALS: BP_SYST 108
[2020-07-23] MEDS: INSULIN GLARGINE 100 UNITS/ML 10 ML VIAL SUBCUT SCH (21:00)
[2020-07-23] MEDS: DONEPEZIL HCL 5 MG TABLET (ARICEPT) PO SCH (21:50)
[2020-07-23] MEDS: ATORVASTATIN 20 MG TABLET PO SCH (21:50)
[2020-07-24] MEDS: HYDROcodone/ACETAMIN 10-325 MG TAB PO PRN ×2 (00:03→08:50)
[2020-07-24 00:15] VITALS: BP_SYST 110
[2020-07-24] MEDS: HYDROcodone/ACETAMIN 5-325 MG TAB (NORCO/ VICODIN) PO PRN (02:50)
[2020-07-24] MEDS: NORMAL SALINE 5 ML DISP.SYRIN IVF SCH ×3 (06:36→20:41)
[2020-07-24] MEDS: PIPERACILLIN/TAZO 4.5GM/DEX-IS 100 ML IV SCH (06:36)
[2020-07-24 07:26] LABS: BASOPHILS # (AUTO) 0.1 K/uL (0.0-0.2); BASOPHILS % (AUTO) 0.7 % (0.0-2.0); EOSINOPHILS # (AUTO) 0.3 K/uL (0.0-0.4); EOSINOPHILS % (AUTO) 3.4 % (0.0-4.0); HEMATOCRIT 29.5 % (36-48); HEMOGLOBIN 9.8 g/dL (12.0-16.0); LYMPHOCYTES # (AUTO) 1.7 K/uL (1.0-5.5); LYMPHOCYTES % (AUTO) 22.2 % (20.5-51.5); MEAN CORPUSCULAR HEMOGLOBIN 27 pg (27-31); MEAN CORPUSCULAR HGB CONC 33 % (32-36); MEAN CORPUSCULAR VOLUME 81 fL (79.0-98.0); MONOCYTES # (AUTO) 0.7 K/uL (0.0-1.0); MONOCYTES % (AUTO) 9.9 % (1.7-9.3); NEUTROPHILS # (AUTO) 4.8 K/uL (1.8-7.7); NEUTROPHILS % (AUTO) 63.8 % (40.0-70.0); PLATELET COUNT (AUTO) 336 K/uL (130-430); RED BLOOD CELL COUNT(AUTO) 3.65 MIL/uL (4.2-6.2); WHITE BLOOD COUNT (AUTO) 7.5 K/uL (4.8-10.8)
[2020-07-24 07:40] LABS: ANION GAP 11 (5-15); CALCIUM 8.9 mg/dL (8.4-11.0); CHLORIDE 106 mmol/L (98-107); CREATININE 0.92 mg/dL (0.55-1.30); GLUCOSE 123 mg/dL (70-99); POTASSIUM 3.8 mmol/L (3.5-5.1); SODIUM SERUM 142 mmol/L (136-145); UREA NITROGEN, BLOOD 17 mg/dL (8-21)
[2020-07-24 08:44] VITALS: BP_SYST 120
[2020-07-24] MEDS: ASPIRIN 81 MG TAB.CHEW PO SCH (08:47)
[2020-07-24] MEDS: MEMANTINE HCL 5 MG TABLET PO SCH (08:48)
[2020-07-24] MEDS: amLODIPine BESYLATE 10 MG TABLET PO SCH (08:49)
[2020-07-24] MEDS: LOSARTAN POTASSIUM 50 MG TABLET (COZAAR) PO SCH (08:59)
[2020-07-24] MEDS: MULTIVITAMIN WITH MINERALS PO SCH (09:00)
[2020-07-24 09:11] LABS: C-REACTIVE PROTEIN QUANT 2.2 mg/dL (0-0.5)
[2020-07-24 12:06] VITALS: BP_SYST 102
[2020-07-24 12:57] LABS: ERYTHROCYTE SEDIMENTATION RATE 62 MM/HR (0-20)
[2020-07-24] MEDS ORDERED: traMADol HCL HCL 50 MG TABLET (ULTRAM) PO PRN ×2 (14:30→19:30)
[2020-07-24 16:13] VITALS: BP_SYST 140
[2020-07-24] MEDS: VANCOMYCIN HCL 1,000 MG in NS 250 ML IV SCH (18:39)
[2020-07-24 20:15] VITALS: BP_SYST 121
[2020-07-24] MEDS: ATORVASTATIN 20 MG TABLET PO SCH (20:39)
[2020-07-24] MEDS: DONEPEZIL HCL 5 MG TABLET (ARICEPT) PO SCH (20:39)
[2020-07-24] MEDS: INSULIN GLARGINE 100 UNITS/ML 10 ML VIAL SUBCUT SCH (20:40)
[2020-07-24] MEDS: traMADol HCL HCL 50 MG TABLET (ULTRAM) PO PRN (20:40)
[2020-07-25 00:07] VITALS: BP_SYST 136
[2020-07-25] MEDS: traMADol HCL HCL 50 MG TABLET (ULTRAM) PO PRN (04:21)
[2020-07-25] MEDS: NORMAL SALINE 5 ML DISP.SYRIN IVF SCH ×3 (06:03→22:43)
[2020-07-25 07:22] LABS: ALANINE AMINOTRANSFERASE 17 U/L (12-78); ANION GAP 8 (5-15); ASPARTATE AMINOTRANSFERASE 12 U/L (10-37); CALCIUM 9.4 mg/dL (8.4-11.0); CHLORIDE 104 mmol/L (98-107); CREATININE 0.83 mg/dL (0.55-1.30); GLUCOSE 114 mg/dL (70-99); POTASSIUM 3.8 mmol/L (3.5-5.1); SODIUM SERUM 142 mmol/L (136-145); TOTAL BILIRUBIN 0.3 mg/dL (0.0-1.0); UREA NITROGEN, BLOOD 15 mg/dL (8-21)
[2020-07-25 07:35] LABS: BASOPHILS % (AUTO) 0.4 % (0.0-2.0); EOSINOPHILS # (AUTO) 0.3 K/uL (0.0-0.4); EOSINOPHILS % (AUTO) 3.4 % (0.0-4.0); HEMATOCRIT 32.4 % (36-48); HEMOGLOBIN 10.9 g/dL (12.0-16.0); LYMPHOCYTES # (AUTO) 1.5 K/uL (1.0-5.5); LYMPHOCYTES % (AUTO) 18.2 % (20.5-51.5); MEAN CORPUSCULAR HEMOGLOBIN 27 pg (27-31); MEAN CORPUSCULAR HGB CONC 34 % (32-36); MEAN CORPUSCULAR VOLUME 81 fL (79.0-98.0); MONOCYTES # (AUTO) 0.6 K/uL (0.0-1.0); MONOCYTES % (AUTO) 7.5 % (1.7-9.3); NEUTROPHILS # (AUTO) 5.9 K/uL (1.8-7.7); NEUTROPHILS % (AUTO) 70.5 % (40.0-70.0); PLATELET COUNT (AUTO) 378 K/uL (130-430); RED BLOOD CELL COUNT(AUTO) 4.03 MIL/uL (4.2-6.2); RED CELL DISTRIBUTION WIDTH 16.4 % (9.0-15.0); WHITE BLOOD COUNT (AUTO) 8.3 K/uL (4.8-10.8)
[2020-07-25 07:37] LABS: C-REACTIVE PROTEIN QUANT 3.8 mg/dL (0-0.5)
[2020-07-25 07:57] VITALS: BP_SYST 123
[2020-07-25] MEDS: amLODIPine BESYLATE 10 MG TABLET PO SCH (09:00)
[2020-07-25] MEDS: LOSARTAN POTASSIUM 50 MG TABLET (COZAAR) PO SCH (09:00)
[2020-07-25] MEDS: ASPIRIN 81 MG TAB.CHEW PO SCH (09:00)
[2020-07-25] MEDS: MULTIVITAMIN WITH MINERALS PO SCH (09:00)
[2020-07-25] MEDS: MEMANTINE HCL 5 MG TABLET PO SCH (09:00)
[2020-07-25 11:02] LABS: ERYTHROCYTE SEDIMENTATION RATE 79 MM/HR (0-20)
[2020-07-25 13:39] VITALS: BP_SYST 140
[2020-07-25] MEDS: ceFAZolin SODIUM 1 GM in D5W 50 ML IV SCH ×2 (13:53→22:44)
[2020-07-25 15:12] VITALS: BP_SYST 123
[2020-07-25] MEDS ORDERED: ONDANSETRON HCL 4 MG/2 ML VIAL IVP PRN (15:15)
[2020-07-25] MEDS ORDERED: HYDROmorphone 1 MG INJ. 1 MG/ML AMPUL IVP PRN ×2 (15:15)
[2020-07-25] MEDS ORDERED: MEPERIDINE HCL/PF 25 MG/ML DISP.SYRIN IVP PRN (15:15)
[2020-07-25] MEDS ORDERED: METOCLOPRAMIDE HCL 10 MG/2 ML VIAL IVP PRN (15:15)
[2020-07-25] MEDS ORDERED: LABETALOL 100 MG/ 20ML VIAL IVP PRN (15:15)
[2020-07-25] MEDS ORDERED: hydrALAZINE HCL 20 MG/ML VIAL IVP PRN (15:15)
[2020-07-25] MEDS ORDERED: MIDAZOLAM HCL 2 MG/2 ML VIAL (VERSED) IVP PRN (15:15)
[2020-07-25] MEDS ORDERED: LR 1,000 ML IV.SOLN IV ONE (15:34)
[2020-07-25] MEDS ORDERED: fentaNYL CITRATE/PF 100 MCG/2 ML AMP ONE (15:34)
[2020-07-25] MEDS ORDERED: NS IRRIG SOLN 1000 ML IR ONE (15:34)
[2020-07-25] MEDS ORDERED: SEVOFLURANE 15 MIN GAS INH ONE (15:34)
[2020-07-25] MEDS ORDERED: ONDANSETRON HCL 4 MG/2 ML VIAL ONE (15:34)
[2020-07-25] MEDS ORDERED: LIDOCAINE 1% 10 MG/ML, 20 ML MDV ONE (15:34)
[2020-07-25] MEDS ORDERED: MIDAZOLAM HCL 5 MG/ML VIAL (VERSED) IV ONE (15:34)
[2020-07-25] MEDS ORDERED: PROPOFOL 200MG/ 20ML VIAL (DIPRIVAN) IV ONE (15:34)
[2020-07-25 16:30] VITALS: BP_SYST 123
[2020-07-25 20:50] VITALS: BP_SYST 124
[2020-07-25] MEDS: LR 1,000 ML IV SCH (22:35)
[2020-07-25] MEDS: ATORVASTATIN 20 MG TABLET PO SCH (22:35)
[2020-07-25] MEDS: DONEPEZIL HCL 5 MG TABLET (ARICEPT) PO SCH (22:36)
[2020-07-25] MEDS: INSULIN GLARGINE 100 UNITS/ML 10 ML VIAL SUBCUT SCH (22:40)
[2020-07-26] MEDS: ONDANSETRON HCL 4 MG/2 ML VIAL IVP PRN (00:24)
[2020-07-26] MEDS: ACETAMINOPHEN 325 MG TABLET PO PRN ×2 (00:36→04:15)
[2020-07-26 01:00] VITALS: BP_SYST 131
[2020-07-26] MEDS: LR 1,000 ML IV SCH ×3 (01:48→21:48)
[2020-07-26] MEDS: ceFAZolin SODIUM 1 GM in D5W 50 ML IV SCH ×3 (07:13→21:49)
[2020-07-26] MEDS: NORMAL SALINE 5 ML DISP.SYRIN IVF SCH ×3 (07:13→21:51)
[2020-07-26 07:19] LABS: ANION GAP 9 (5-15); CALCIUM 8.8 mg/dL (8.4-11.0); CHLORIDE 105 mmol/L (98-107); CREATININE 0.84 mg/dL (0.55-1.30); GLUCOSE 84 mg/dL (70-99); POTASSIUM 3.6 mmol/L (3.5-5.1); SODIUM SERUM 141 mmol/L (136-145); UREA NITROGEN, BLOOD 17 mg/dL (8-21)
[2020-07-26 07:20] LABS: BASOPHILS % (AUTO) 0.4 % (0.0-2.0); EOSINOPHILS # (AUTO) 0.2 K/uL (0.0-0.4); HEMATOCRIT 29.6 % (36-48); HEMOGLOBIN 9.8 g/dL (12.0-16.0); LYMPHOCYTES # (AUTO) 1.1 K/uL (1.0-5.5); LYMPHOCYTES % (AUTO) 15.5 % (20.5-51.5); MEAN CORPUSCULAR HEMOGLOBIN 27 pg (27-31); MEAN CORPUSCULAR HGB CONC 33 % (32-36); MEAN CORPUSCULAR VOLUME 81 fL (79.0-98.0); MONOCYTES # (AUTO) 0.6 K/uL (0.0-1.0); MONOCYTES % (AUTO) 7.9 % (1.7-9.3); NEUTROPHILS # (AUTO) 5.2 K/uL (1.8-7.7); NEUTROPHILS % (AUTO) 73.2 % (40.0-70.0); PLATELET COUNT (AUTO) 317 K/uL (130-430); RED BLOOD CELL COUNT(AUTO) 3.65 MIL/uL (4.2-6.2); RED CELL DISTRIBUTION WIDTH 16.5 % (9.0-15.0); WHITE BLOOD COUNT (AUTO) 7.2 K/uL (4.8-10.8)
[2020-07-26] MEDS: MULTIVITAMIN WITH MINERALS PO SCH (09:00)
[2020-07-26 10:26] LABS: C-REACTIVE PROTEIN QUANT 4.3 mg/dL (0-0.5)
[2020-07-26 10:48] LABS: ERYTHROCYTE SEDIMENTATION RATE 51 MM/HR (0-20)
[2020-07-26] MEDS: ASPIRIN 81 MG TAB.CHEW PO SCH (11:45)
[2020-07-26] MEDS: MEMANTINE HCL 5 MG TABLET PO SCH (11:46)
[2020-07-26] MEDS: amLODIPine BESYLATE 10 MG TABLET PO SCH (11:50)
[2020-07-26] MEDS: LOSARTAN POTASSIUM 50 MG TABLET (COZAAR) PO SCH (13:26)
[2020-07-26] MEDS: traMADol HCL HCL 50 MG TABLET (ULTRAM) PO PRN ×2 (17:38→21:33)
[2020-07-26 20:00] VITALS: BP_SYST 131
[2020-07-26] MEDS: INSULIN GLARGINE 100 UNITS/ML 10 ML VIAL SUBCUT SCH (21:00)
[2020-07-26] MEDS: ATORVASTATIN 20 MG TABLET PO SCH (21:34)
[2020-07-26] MEDS: DONEPEZIL HCL 5 MG TABLET (ARICEPT) PO SCH (21:34)
[2020-07-27] MEDS: ceFAZolin SODIUM 1 GM in D5W 50 ML IV SCH ×3 (05:29→21:54)
[2020-07-27] MEDS: NORMAL SALINE 5 ML DISP.SYRIN IVF SCH ×3 (05:29→22:00)
[2020-07-27] MEDS: LR 1,000 ML IV SCH ×2 (05:30→17:22)
[2020-07-27 06:51] VITALS: BP_SYST 128
[2020-07-27 07:20] LABS: BASOPHILS % (AUTO) 0.4 % (0.0-2.0); EOSINOPHILS # (AUTO) 0.2 K/uL (0.0-0.4); EOSINOPHILS % (AUTO) 2.9 % (0.0-4.0); HEMATOCRIT 29.3 % (36-48); HEMOGLOBIN 9.9 g/dL (12.0-16.0); LYMPHOCYTES # (AUTO) 1.5 K/uL (1.0-5.5); LYMPHOCYTES % (AUTO) 19.3 % (20.5-51.5); MEAN CORPUSCULAR HEMOGLOBIN 28 pg (27-31); MEAN CORPUSCULAR HGB CONC 34 % (32-36); MEAN CORPUSCULAR VOLUME 82 fL (79.0-98.0); MONOCYTES # (AUTO) 0.6 K/uL (0.0-1.0); NEUTROPHILS # (AUTO) 5.3 K/uL (1.8-7.7); NEUTROPHILS % (AUTO) 69.4 % (40.0-70.0); PLATELET COUNT (AUTO) 317 K/uL (130-430); RED BLOOD CELL COUNT(AUTO) 3.59 MIL/uL (4.2-6.2); RED CELL DISTRIBUTION WIDTH 16.4 % (9.0-15.0); WHITE BLOOD COUNT (AUTO) 7.7 K/uL (4.8-10.8)
[2020-07-27 08:01] LABS: ANION GAP 11 (5-15); CHLORIDE 107 mmol/L (98-107); GLUCOSE 88 mg/dL (70-99); POTASSIUM 3.9 mmol/L (3.5-5.1); SODIUM SERUM 146 mmol/L (136-145)
[2020-07-27 08:02] LABS: CALCIUM 8.8 mg/dL (8.4-11.0); CREATININE 0.79 mg/dL (0.55-1.30); UREA NITROGEN, BLOOD 15 mg/dL (8-21)
[2020-07-27 08:04] VITALS: BP_SYST 121
[2020-07-27] MEDS: MEMANTINE HCL 5 MG TABLET PO SCH (08:18)
[2020-07-27] MEDS: ASPIRIN 81 MG TAB.CHEW PO SCH (08:18)
[2020-07-27] MEDS: traMADol HCL HCL 50 MG TABLET (ULTRAM) PO PRN (08:18)
[2020-07-27] MEDS: amLODIPine BESYLATE 10 MG TABLET PO SCH (08:19)
[2020-07-27] MEDS: MULTIVITAMIN WITH MINERALS PO SCH (08:19)
[2020-07-27] MEDS: LOSARTAN POTASSIUM 50 MG TABLET (COZAAR) PO SCH (08:20)
[2020-07-27 11:22] LABS: ERYTHROCYTE SEDIMENTATION RATE 63 MM/HR (0-20)
[2020-07-27 12:19] LABS: C-REACTIVE PROTEIN QUANT 5.8 mg/dL (0-0.5)
[2020-07-27 12:21] VITALS: BP_SYST 138
[2020-07-27] MEDS: ONDANSETRON HCL 4 MG/2 ML VIAL IVP PRN (13:09)
[2020-07-27 16:01] VITALS: BP_SYST 134
[2020-07-27] MEDS ORDERED: [UNRECOGNIZED DRUG - CODE] IJ (18:23)
[2020-07-27] MEDS: INSULIN GLARGINE 100 UNITS/ML 10 ML VIAL SUBCUT SCH (21:00)
[2020-07-27] MEDS: ATORVASTATIN 20 MG TABLET PO SCH (21:53)
[2020-07-27] MEDS: DONEPEZIL HCL 5 MG TABLET (ARICEPT) PO SCH (21:53)
[2020-07-28 00:38] VITALS: BP_SYST 149
[2020-07-28] MEDS: LR 1,000 ML IV SCH (03:15)
[2020-07-28] MEDS: NORMAL SALINE 5 ML DISP.SYRIN IVF SCH ×2 (05:36→14:24)
[2020-07-28] MEDS: ceFAZolin SODIUM 1 GM in D5W 50 ML IV SCH ×2 (05:36→14:24)
[2020-07-28 07:52] LABS: BASOPHILS % (AUTO) 0.2 % (0.0-2.0); EOSINOPHILS # (AUTO) 0.1 K/uL (0.0-0.4); EOSINOPHILS % (AUTO) 1.5 % (0.0-4.0); HEMATOCRIT 29.9 % (36-48); HEMOGLOBIN 10.2 g/dL (12.0-16.0); LYMPHOCYTES # (AUTO) 0.5 K/uL (1.0-5.5); MEAN CORPUSCULAR HEMOGLOBIN 28 pg (27-31); MEAN CORPUSCULAR HGB CONC 34 % (32-36); MEAN CORPUSCULAR VOLUME 81 fL (79.0-98.0); MONOCYTES # (AUTO) 0.3 K/uL (0.0-1.0); MONOCYTES % (AUTO) 4.2 % (1.7-9.3); NEUTROPHILS # (AUTO) 6.6 K/uL (1.8-7.7); NEUTROPHILS % (AUTO) 88.1 % (40.0-70.0); PLATELET COUNT (AUTO) 288 K/uL (130-430); RED BLOOD CELL COUNT(AUTO) 3.69 MIL/uL (4.2-6.2); RED CELL DISTRIBUTION WIDTH 17.1 % (9.0-15.0); WHITE BLOOD COUNT (AUTO) 7.5 K/uL (4.8-10.8)
[2020-07-28 08:00] VITALS: BP_SYST 112
[2020-07-28 08:22] LABS: ANION GAP 9 (5-15); CALCIUM 8.6 mg/dL (8.4-11.0); CHLORIDE 103 mmol/L (98-107); CREATININE 0.63 mg/dL (0.55-1.30); GLUCOSE 103 mg/dL (70-99); POTASSIUM 3.5 mmol/L (3.5-5.1); SODIUM SERUM 137 mmol/L (136-145); UREA NITROGEN, BLOOD 15 mg/dL (8-21)
[2020-07-28] MEDS: MULTIVITAMIN WITH MINERALS PO SCH (09:00)
[2020-07-28] MEDS: ASPIRIN 81 MG TAB.CHEW PO SCH (09:35)
[2020-07-28] MEDS: LOSARTAN POTASSIUM 50 MG TABLET (COZAAR) PO SCH (09:36)
[2020-07-28] MEDS: MEMANTINE HCL 5 MG TABLET PO SCH (09:36)
[2020-07-28] MEDS: amLODIPine BESYLATE 10 MG TABLET PO SCH (09:36)
[2020-07-28 11:06] LABS: ERYTHROCYTE SEDIMENTATION RATE 57 MM/HR (0-20)
[2020-07-28 14:55] VITALS: BP_SYST 109
== END 2020-07-28 17:55 | disposition home health service (06) | DRG 464 ==
LOC: SED 15:05 → SMU 17:46
PROVIDERS: ADMIT Preventive Medicine Preventive Medicine/Occupational Environmental Medicine; ATTEND Preventive Medicine Preventive Medicine/Occupational Environmental Medicine
PROC: 0S9B3ZZ Drainage of Left Hip Joint, Percutaneous Approach (ICD-10-PCS; 2020-07-25)
PROC: 0SPB0JZ Removal of Synthetic Substitute from Left Hip Joint, Open Approach (ICD-10-PCS; principal; 2020-07-25 14:27)
PROC: 02HV33Z Insertion of Infusion Device into Superior Vena Cava, Percutaneous Approach (ICD-10-PCS; 2020-07-27)
PROC: B548ZZA Ultrasonography of Superior Vena Cava, Guidance (ICD-10-PCS; 2020-07-27)
DX: T84.52XA Infection and inflammatory reaction due to internal left hip prosthesis, initial encounter (principal); M00.9 Pyogenic arthritis, unspecified; L02.416 Cutaneous abscess of left lower limb; L03.116 Cellulitis of left lower limb; Y92.89 Other specified places as the place of occurrence of the external cause; I10 Essential (primary) hypertension; E78.5 Hyperlipidemia, unspecified; F02.80 Dementia in other diseases classified elsewhere, unspecified severity, without behavioral disturbance, psychotic disturbance, mood disturbance, and anxiety; G30.9 Alzheimer's disease, unspecified; Z20.822 Contact with and (suspected) exposure to COVID-19; Y83.1 Surgical operation with implant of artificial internal device as the cause of abnormal reaction of the patient, or of later complication, without mention of misadventure at the time of the procedure; Z96.643 Presence of artificial hip joint, bilateral; D64.9 Anemia, unspecified; E88.09 Other disorders of plasma-protein metabolism, not elsewhere classified; B95.62 Methicillin resistant Staphylococcus aureus infection as the cause of diseases classified elsewhere; E11.65 Type 2 diabetes mellitus with hyperglycemia; Z79.899 Other long term (current) drug therapy
CPT/HCPCS: 36415; 71045; 72192-TC; 76376; 80048; 80053; 80202-TC; 81003; 82962; 83605; 83735-TC; 84100-TC; 85025; 85610-TC; 85651-TC; 85730-TC; 86140; 86886; 86900; 86901; 87040-TC; 87070; 87070-TC; 87075-TC; 87081; 87186-TC; 93005; 94010; 96365; 96366; 96375; 97110-GP; 97116-GP; 99291; C1751; J0690; J1815; J1885; J2001; J2185; J2250; J2405; J2543; J2704; J3010; J3370; J7040; J7050; J7060; J7120

== ENCOUNTER 2020-08-10 15:35 | Emergency (ER) | payer OTHER, MEDICAID ==
[~2020-08-10] VITALS: Ht 172.7 cm; Wt 79.4 kg
[~2020-08-10 15:35] MED LIST changes: -CEFA2SYR4 IV; +[UNRECOGNIZED DRUG - CODE] IJ
[2020-08-10 15:55] VITALS: BP_SYST 145
--- NOTE | 2020-08-10 15:55 | NUR ---
PT TO TENT FOR EVALUATION
--- NOTE | 2020-08-10 16:00 | NUR ---
Pt brought by self,A&Ox4, pt presents to ER with wound on L Hip due to cellulitis , pt is being treated with antibiotics , afebrile, ambulatory, skin pink and warm, cap refill <3.
--- NOTE | 2020-08-10 16:10 | NUR ---
Pt A&Ox4, afebrile, will cont to monitor.
--- NOTE | 2020-08-10 17:10 | NUR ---
Dr Bolivar evaluating patient in the tent
[2020-08-10 17:33] VITALS: BP_SYST 145
--- NOTE | 2020-08-10 17:34 | NUR ---
Patient given written and verbal discharge instructions and verbalizes understanding. ER MD discussed with patient the results and treatment provided. Patient in stable condition. ID arm band removed. No Rx given. Patient educated on pain management and to follow up with PMD. Pain Scale 3/10 tolerable for patient . Opportunity for questions provided and answered. Medication side effect fact sheet provided.
== END 2020-08-10 17:34 | disposition home or self-care (01) ==
LOC: SED 15:35
DX: Z48.00 Encounter for change or removal of nonsurgical wound dressing (principal); I10 Essential (primary) hypertension; E11.9 Type 2 diabetes mellitus without complications; Z79.899 Other long term (current) drug therapy; Z79.82 Long term (current) use of aspirin; Z79.4 Long term (current) use of insulin
CPT/HCPCS: 99281

== ENCOUNTER 2020-08-18 23:39 | Inpatient (IN) | payer OTHER, MEDICAID, SELFPAY ==
[~2020-08-18] VITALS: Ht 172.7 cm; Wt 80.3 kg
--- NOTE | 2020-08-18 23:53 | NUR ---
Patient to ER bed 4 to gown for evaluation. Side rails up.
[2020-08-18 23:59] VITALS: BP_SYST 125
--- NOTE | 2020-08-19 00:03 | NUR ---
pt BIB daughter for wound check to left hip. daughter of pt states edge of wound has become hard, swollen, and warm to the touch. pts wound edges appear to be hardened and warm to the touch. wound does not have any drainage or discharge. pt is currently on antibiotics (ancef TID) at home. pt takes tramadol and tylenol for pain, last dose at 5pm. pt rates pain 7/10 pulsating like. pt hx of total left hip replacement with infection and abscess removal.
--- NOTE | 2020-08-19 00:04 | NUR ---
ER Dr. Scanlon at bedside examining patient.
[2020-08-19] MEDS ORDERED: traMADol HCL HCL 50 MG TABLET (ULTRAM) PO ONE (00:15)
--- NOTE | 2020-08-19 01:09 | NUR ---
pt medicated per md orders. pt tolerated well.
--- NOTE | 2020-08-19 01:09 | NUR ---
pt took out dentures and put in denture cup placed at bedside.
--- NOTE | 2020-08-19 01:28 | NUR ---
lab at bedside for blood draw. blood drawn from upper right arm PICC line by RN.
[2020-08-19 01:52] LABS: BASOPHILS % (AUTO) 0.6 % (0.0-2.0); EOSINOPHILS # (AUTO) 0.9 K/uL (0.0-0.4); HEMATOCRIT 28.8 % (36-48); HEMOGLOBIN 9.2 g/dL (12.0-16.0); LYMPHOCYTES # (AUTO) 1.3 K/uL (1.0-5.5); LYMPHOCYTES % (AUTO) 19.4 % (20.5-51.5); MEAN CORPUSCULAR HEMOGLOBIN 27 pg (27-31); MEAN CORPUSCULAR HGB CONC 32 % (32-36); MEAN CORPUSCULAR VOLUME 84 fL (79.0-98.0); MONOCYTES # (AUTO) 0.5 K/uL (0.0-1.0); MONOCYTES % (AUTO) 7.9 % (1.7-9.3); NEUTROPHILS # (AUTO) 3.9 K/uL (1.8-7.7); NEUTROPHILS % (AUTO) 59.1 % (40.0-70.0); PLATELET COUNT (AUTO) 299 K/uL (130-430); RED BLOOD CELL COUNT(AUTO) 3.45 MIL/uL (4.2-6.2); RED CELL DISTRIBUTION WIDTH 17.2 % (9.0-15.0); WHITE BLOOD COUNT (AUTO) 6.6 K/uL (4.8-10.8)
[2020-08-19 02:00] LABS: ANION GAP 7 (5-15); CALCIUM 8.4 mg/dL (8.4-11.0); CHLORIDE 108 mmol/L (98-107); CREATININE 0.73 mg/dL (0.55-1.30); GLUCOSE 106 mg/dL (70-99); POTASSIUM 3.7 mmol/L (3.5-5.1); SODIUM SERUM 143 mmol/L (136-145); UREA NITROGEN, BLOOD 16 mg/dL (8-21)
[2020-08-19 02:05] LABS: ALANINE AMINOTRANSFERASE 10 U/L (12-78); ALBUMIN 2.7 g/dL (3.4-4.8); ASPARTATE AMINOTRANSFERASE 16 U/L (10-37); TOTAL BILIRUBIN 0.3 mg/dL (0.0-1.0)
--- NOTE | 2020-08-19 02:27 | NUR ---
daughter left bedside. will call her for updates or to pharmacy picking tech pt when she is discharged.
--- NOTE | 2020-08-19 02:33 | NUR ---
CT consent form with contrast signed and placed in chart.
--- NOTE | 2020-08-19 02:52 | NUR ---
Patient transported to radiology via WHEELCHAIR, accompanied by
--- NOTE | 2020-08-19 03:33 | NUR ---
Returned from radiology, back to [facility].
--- NOTE | 2020-08-19 03:36 | NUR ---
dr. larios cancelled second lactic draw.
--- NOTE | 2020-08-19 04:02 | NUR ---
pt has PICC to RIGHT UPPER ARM that was placed previous to arrival to ED. ports have been flushed with 10cc normal saline. no signs of infiltration.
[2020-08-19] MEDS ORDERED: ONDANSETRON HCL 4 MG/2 ML VIAL IVP PRN (05:15)
[2020-08-19] MEDS ORDERED: INSULIN REGULAR, HUMAN 100 UNITS/ML, 10 ML VIAL (humuLIN R) SUBCUT PRN ×2 (05:15→09:30)
[2020-08-19] MEDS ORDERED: ACETAMINOPHEN 325 MG TABLET PO PRN ×2 (05:15→09:30)
[2020-08-19] MEDS ORDERED: VANCOMYCIN HCL 1,000 MG in NS 250 ML IV ONE (05:15)
--- NOTE | 2020-08-19 05:25 | NUR ---
COVID SWAB AND MRSA SWAB SENT TO LAB.
--- NOTE | 2020-08-19 05:25 | NUR ---
Patient will be admitted to care of [facility]. Admitted to MEDSURG unit. Will go to room PENDING. Belongings list completed. Complete and up to date summary report printed. SBAR report to be given at bedside with opportunity for questions.
--- NOTE | 2020-08-19 05:25 | NUR ---
RECEIVED ADMIT ORDERS FROM DR. PAZ.
--- NOTE | 2020-08-19 05:29 | NUR ---
spoke with daughter of pt to update on status of admission.
--- NOTE | 2020-08-19 05:30 | NUR ---
Patient's code status is FULL CODE paperwork completed and placed in chart.
--- NOTE | 2020-08-19 05:31 | NUR ---
Medication reconciliation completed with information provided by DAUGHTER LIST. Any prior medication reconciliation on file was reviewed and corrected.
--- NOTE | 2020-08-19 05:39 | NUR ---
PT GOING TO 110A.
[2020-08-19] MEDS ORDERED: VANCOMYCIN HCL 1000 MG/VIAL IV ONE (05:52)
--- NOTE | 2020-08-19 06:05 | NUR ---
Blood cultures drawn, prior to administration of antibiotic.
--- NOTE | 2020-08-19 06:12 | NUR ---
REPORT GIVEN TO DAX VEGA FOR CONTINUATION OF CARE ON MEDSURG.
--- NOTE | 2020-08-19 06:15 | NUR ---
PT USING BEDSIDE COMMODE. PT ABLE TO AMBULATE A FEW STEPS WITH STEADY GAIT.
--- NOTE | 2020-08-19 06:18 | NUR ---
Transfer to [facility]. IV present no sign or symptom of infiltration.
--- NOTE | 2020-08-19 06:30 | NUR ---
ADMISSION: The patient, CARLINE KWOK, 75 y/o, F admitted by ISIS PAZ MD, was given written information regarding hospital policies, unit procedures and contact persons.
--- NOTE | 2020-08-19 06:48 | NUR ---
CONSULTATION PAGED/CALLED Reason for Consultation: [] MULTIPLE ABSCESS Person Who was Notified: [] FER Consulting Physician: [] DR Tomi MCCARTNEY Loaders Specialty: [] ORTHO Ordering Physician: [] DR PAZ
[2020-08-19 06:55] VITALS: BP_SYST 124
--- NOTE | 2020-08-19 07:21 | NUR ---
BLOOD SUGAR RECHECK/CLOSING NOTE: PATIENT BLOOD SUGAR WAS 50. GAVE THE PATIENT 2 APPLE JUICE AND 2 TURKEY SANDWICHES. PATIENT'S BLOOD SUGAR IS NOW 127. PATIENT IS SITTING UP AT BEDSIDE. ENDORSED CARE TO DAYSHIFT RN. NO ACUTE DISTRESS. EVEN, NONLABORED BREATHING ON ROOM AIR. IMNA PICC LINE IS C/D/I. ALL NEEDS MET. BED IS LOCKED AT LOWEST POSITION. SIDE RAILS UP. CALL LIGHT IS WITH PATIENT. SAFETY AND FALL PRECAUTIONS IN PLACE.
--- NOTE | 2020-08-19 07:33 | NUR ---
CONSULTATION PAGED [id number] FOR CONSULTATION:MULTIPLE ABSCESS WAS CONSULT CALLED?Y PERSON WHO WAS NOTIFIED:EXCHANGE CONSULTING PHYSICIAN:LUCY MCKAY JUNIOR BRAND MANAGER SPECIALTY:ORTHO JUNIOR BRAND MANAGER PHONE NUMBER:[phone] REQUESTING PHYSICIAN:JO[facility] MANUEL [facility]
[2020-08-19 08:00] VITALS: BP_SYST 111
[2020-08-19] MEDS ORDERED: LOSARTAN POTASSIUM 50 MG TABLET (COZAAR) PO ONE (09:30)
[2020-08-19] MEDS ORDERED: amLODIPine BESYLATE 10 MG TABLET PO ONE (09:30)
[2020-08-19] MEDS ORDERED: DEXTROSE 50% JECT 50 ML DISP.SYRIN IV PRN (09:30)
[2020-08-19] MEDS: VANCOMYCIN HCL 1 GM/NS PREMIX 250 ML IV SCH ×2 (11:00→22:43)
--- NOTE | 2020-08-19 11:00 | NUR ---
Note Spoke to pt's daughter Marina and requested per pt's request for adult briefs and knitting materials to be brought in.
[2020-08-19] MEDS: MEMANTINE HCL 5 MG TABLET PO SCH ×2 (11:27→20:36)
[2020-08-19] MEDS: traMADol HCL HCL 50 MG TABLET (ULTRAM) PO PRN ×3 (11:33→23:48)
[2020-08-19 12:00] VITALS: BP_SYST 124
[2020-08-19] MEDS ORDERED: CEFAZOLIN 1 GM IVPB PREMIX 50 ML IV SCH (14:00)
[2020-08-19] MEDS ORDERED: ceFAZolin SODIUM 1 GM VIAL IV SCH (14:00)
--- NOTE | 2020-08-19 16:35 | NUR ---
Note Pt's admission assessment was completed and pt was oriented to room and nursing routines and procedures. Questions/concerns were answered (08am). Pt's MINA PICC intact and patent. Pt's left hip dressing from home CDI at this time. 1300 - pt's left hip incision/wound photo was taken and wound was cleaned and dressing changed at this time. Wound culture taken and sent to lab (micro). 1600 - Dr Bueno at pt's bedside answering questions/concerns at this time. Pt has been ambulating to restroom with her cane to the restroom with steady gait all shift. Pt sat on side of bed and ate her lunch. No needs noted at this time. Call light within reach.
--- NOTE | 2020-08-19 16:45 | NUR ---
CONSULTATION PAGED [id number] FOR CONSULTATION:CELLULITIS WAS CONSULT CALLED?Y PERSON WHO WAS NOTIFIED:KIMBERLY CONSULTING PHYSICIAN:CHARLY COSTELLO EVENT DESIGNER SPECIALTY:INFECTIOUS DISEASE EVENT DESIGNER PHONE NUMBER:[phone] REQUESTING PHYSICIAN:ISIS BLISS
--- NOTE | 2020-08-19 18:35 | NUR ---
NOTE Pt sitting on side of bed eating her dinner. Pt has been ambulating to restroom with her cane and steady gait to restroom all shift. MINA PICC intact and patent. Pt was checked on q1' and PRN all shift. Pt was maintained with safety precautions all shift. Call light within reach. Pt's bed on low position all shift.
[2020-08-19 20:00] VITALS: BP_SYST 128
[2020-08-19] MEDS: QUEtiapine FUMARATE 25 MG TABLET PO SCH (20:36)
[2020-08-19] MEDS: DONEPEZIL HCL 5 MG TABLET (ARICEPT) PO SCH (20:36)
[2020-08-19] MEDS: INSULIN GLARGINE 100 UNITS/ML 10 ML VIAL SUBCUT SCH (20:42)
[2020-08-19] MEDS ORDERED: CEFTAROLINE FOSAMIL ACETATE 400 MG VIAL IV ONE (21:34)
[2020-08-19] MEDS: CEFTAROLINE FOSAMIL ACETATE 400 MG in NS 250 ML IV SCH (21:59)
[2020-08-20] VITALS: BP_SYST 124
--- NOTE | 2020-08-20 07:13 | NUR ---
Nutrition Update Yoshi Scale 14 noted. Pt admitted for multiple abscesses. Diet: [facility] BMI: 26.9 kg/m2 RD to follow per nutrition care standards.
--- NOTE | 2020-08-20 07:30 | NUR ---
OPENING NOTES RECEIVED REPORT FROM NIGHT NURSE. PATIENT IS LAYING IN BED WITH NO SIGNS OF RESPIRATORY DISTRESS OR SHORTNESS OF BREATH. ON ROOM AIR AND TOLERATING IT WELL. ALERT AND ORIENTED X4. PICC LINE IN RIGHT UPPER ARM IS PATENT. NO SIGNS OF INFECTION OR INFILTRATION NOTED. SAFETY PRECAUTIONS IN PLACE. BED LOCKED AND IN LOWEST POSITION. CALL LIGHT WITHIN REACH. WILL CONTINUE TO MONITOR THROUGHOUT SHIFT.
[2020-08-20 08:02] VITALS: BP_SYST 107
[2020-08-20] MEDS: ASPIRIN 81 MG TAB.CHEW PO SCH (08:33)
[2020-08-20] MEDS: LOSARTAN POTASSIUM 50 MG TABLET (COZAAR) PO SCH (08:34)
[2020-08-20] MEDS: MEMANTINE HCL 5 MG TABLET PO SCH ×2 (08:34→21:09)
[2020-08-20] MEDS: ATORVASTATIN 20 MG TABLET PO SCH (08:34)
[2020-08-20] MEDS: amLODIPine BESYLATE 10 MG TABLET PO SCH (08:36)
[2020-08-20] MEDS: PATIENT'S OWN CAP PO SCH (08:53)
[2020-08-20] MEDS: CEFTAROLINE FOSAMIL ACETATE 400 MG in NS 250 ML IV SCH ×2 (08:56→21:08)
[2020-08-20] MEDS: VANCOMYCIN HCL 1 GM/NS PREMIX 250 ML IV SCH ×2 (10:58→23:24)
[2020-08-20 11:44] VITALS: BP_SYST 114
[2020-08-20 16:19] VITALS: BP_SYST 113
--- NOTE | 2020-08-20 18:31 | NUR ---
CLOSING NOTES PATIENT IS LAYING IN BED WITH NO SIGNS OF RESPIRATORY DISTRESS OR SHORTNESS OF BREATH. ON ROOM AIR AND TOLERATING IT WELL. ALERT AND ORIENTED X4. PICC LINE IN RIGHT UPPER ARM IS PATENT. NO SIGNS OF INFECTION OR INFILTRATION NOTED. SAFETY PRECAUTIONS IN PLACE. BED LOCKED AND IN LOWEST POSITION. CALL LIGHT WITHIN REACH. WILL ENDORSE TO NIGHT NURSE.
--- NOTE | 2020-08-20 19:45 | NUR ---
OPENING NOTE RECEIVED PATIENT AWAKE ALERT ORIENTED X4, CROCHETING WITH NO SIGNS OF RESPIRATORY DISTRESS. RESPIRATIONS EVEN AND UNLABORED ON ROOM AIR. PICC LINE INTACT AND FLUSHING WELL WITH BLOOD RETURN NOTED. IV FLUIDS INFUSING WELL. PATIENT AMBULATES TO RESTROOM STEADILY. SAFETY AND FALL PRECAUTIONS IN PLACE BED LOCKED IN LOW POSITION WITH CALL LIGHT IN REACH. WILL CONTINUE TO MONITOR.
[2020-08-20 20:00] VITALS: BP_SYST 108
[2020-08-20] MEDS: DONEPEZIL HCL 5 MG TABLET (ARICEPT) PO SCH (21:09)
[2020-08-20] MEDS: QUEtiapine FUMARATE 25 MG TABLET PO SCH (21:09)
[2020-08-20] MEDS: INSULIN GLARGINE 100 UNITS/ML 10 ML VIAL SUBCUT SCH (21:21)
--- NOTE | 2020-08-20 23:00 | NUR ---
RN ROUNDS SNACK PROVIDED. DRESSING TO LEFT HIP CLEAN DRY AND INTACT AT THIS TIME.
[2020-08-21 01:21] VITALS: BP_SYST 125
--- NOTE | 2020-08-21 06:15 | NUR ---
CLOSING NOTE PATIENT IN BED, AO X3. NO SIGNS OF DISTRESS NOTED. RESPIRATIONS EVEN AND UNLABORED ON ROOM AIR. WOUND CARE DONE TO LEFT HIP, CLEANSED WITH NORMAL SALINE, PAT DRY, COVERED WITH ABD, AND SECURED WITH SILK TAPE. PATIENT TOLERATED WELL. ALL SAFETY AND FALL MEASURES IN PLACE. BED LOCKED IN LOWEST POSITION WITH CALL LIGHT IN REACH. WILL CONTINUE TO MONITOR UNTIL ENDORSED TO AM NURSE. PATIENT STABLE AT THIS TIME.
[2020-08-21 08:00] VITALS: BP_SYST 125
--- NOTE | 2020-08-21 08:45 | NUR ---
Opening Notes Patient is awake, alert and oriented x4. No resp distress noted. Breathing is even and unlabored. Pt remains on RA at this time, saturating at 95% at this time. Pt denies any pain at this time. Pt also denies any NVD, cough or abnormal bleeding. PICC line noted on MINA, double lumen, flushing well at this time, saline lock. Pt is ambulatory, steady gait. IV ATB infusing well at this time. Pt is requesting to switch to a room with a window. Per patient, "Im getting claustrophobic in here. I need to be by a window." Will follow up with charge nurse. All needs met. Safety and fall precautions in place. Bed in lowest position, locked. Will continue to monitor.
[2020-08-21 08:48] LABS: BASOPHILS % (AUTO) 0.6 % (0.0-2.0); EOSINOPHILS # (AUTO) 0.7 K/uL (0.0-0.4); EOSINOPHILS % (AUTO) 13.2 % (0.0-4.0); HEMATOCRIT 28.9 % (36-48); HEMOGLOBIN 9.5 g/dL (12.0-16.0); LYMPHOCYTES # (AUTO) 1.1 K/uL (1.0-5.5); LYMPHOCYTES % (AUTO) 20.9 % (20.5-51.5); MEAN CORPUSCULAR HEMOGLOBIN 27 pg (27-31); MEAN CORPUSCULAR HGB CONC 33 % (32-36); MEAN CORPUSCULAR VOLUME 83 fL (79.0-98.0); MONOCYTES # (AUTO) 0.5 K/uL (0.0-1.0); NEUTROPHILS % (AUTO) 55.3 % (40.0-70.0); PLATELET COUNT (AUTO) 301 K/uL (130-430); RED BLOOD CELL COUNT(AUTO) 3.49 MIL/uL (4.2-6.2); RED CELL DISTRIBUTION WIDTH 17.1 % (9.0-15.0); WHITE BLOOD COUNT (AUTO) 5.5 K/uL (4.8-10.8)
[2020-08-21] MEDS: PATIENT'S OWN CAP PO SCH (09:00)
[2020-08-21] MEDS: ASPIRIN 81 MG TAB.CHEW PO SCH (09:05)
[2020-08-21] MEDS: MEMANTINE HCL 5 MG TABLET PO SCH ×2 (09:05→22:17)
[2020-08-21] MEDS: ATORVASTATIN 20 MG TABLET PO SCH (09:05)
[2020-08-21] MEDS: amLODIPine BESYLATE 10 MG TABLET PO SCH (09:06)
[2020-08-21] MEDS: traMADol HCL HCL 50 MG TABLET (ULTRAM) PO PRN (09:06)
[2020-08-21] MEDS: LOSARTAN POTASSIUM 50 MG TABLET (COZAAR) PO SCH (09:07)
[2020-08-21] MEDS: CEFTAROLINE FOSAMIL ACETATE 400 MG in NS 250 ML IV SCH ×2 (09:07→22:17)
[2020-08-21 09:18] LABS: ANION GAP 9 (5-15); CALCIUM 8.6 mg/dL (8.4-11.0); CHLORIDE 109 mmol/L (98-107); GLUCOSE 85 mg/dL (70-99); POTASSIUM 3.6 mmol/L (3.5-5.1); SODIUM SERUM 144 mmol/L (136-145); UREA NITROGEN, BLOOD 15 mg/dL (8-21)
[2020-08-21] MEDS: VANCOMYCIN HCL 1 GM/NS PREMIX 250 ML IV SCH ×2 (11:16→22:20)
--- NOTE | 2020-08-21 11:30 | NUR ---
Blood Sugar Patients BS was noted at 110 mg/dL. Per sliding scale, no coverage needed at this time. Will continue to monitor.
[2020-08-21 11:37] LABS: ERYTHROCYTE SEDIMENTATION RATE 48 MM/HR (0-20)
[2020-08-21 12:18] VITALS: BP_SYST 144
--- NOTE | 2020-08-21 13:00 | NUR ---
Wound Care Nurse performed wound care on patients left hip. Wound bed noted, 75% yellow and 25% red/pink. Purulent drainage noted, foul odor. Cleanse with NS, pat dry, apply abdominal pad, cover with foam dressing and apply sure site ontop of site. Pt tolerated dressing change well, No reports of pain at this time. Will continue to monitor.
--- NOTE | 2020-08-21 13:45 | NUR ---
TRANSFERRED TO ROOM 116B
[2020-08-21 16:19] VITALS: BP_SYST 134
--- NOTE | 2020-08-21 17:30 | NUR ---
Blood Sugar Patients BS was noted at 88 mg/dL. Per sliding scale, no coverage needed at this time. Will continue to monitor.
--- NOTE | 2020-08-21 19:00 | NUR ---
Closing Notes Patient is awake, alert and oriented x4. Pt is ambulatory and walking around in her room. No resp distress noted. Breathing is even and unlabored. Pt denies any pain at this time. PICC line noted on MINA, double lumen, saline lock. Dressing noted on left buttocks/hip. Pt still needs to be seen and examined by DR HILLIARD (ORTHO). Charge nurse made aware. All needs met at this time. Call light within reach. Safety and fall precautions in place. Bed in lowest position, locked. Will continue to monitor.
[2020-08-21 20:00] VITALS: BP_SYST 138
[2020-08-21] MEDS: INSULIN GLARGINE 100 UNITS/ML 10 ML VIAL SUBCUT SCH (21:00)
[2020-08-21] MEDS: QUEtiapine FUMARATE 25 MG TABLET PO SCH (22:17)
[2020-08-21] MEDS: DONEPEZIL HCL 5 MG TABLET (ARICEPT) PO SCH (22:17)
[2020-08-22] VITALS (7 sets, daily range): BP systolic 120–145
[2020-08-22] MEDS: traMADol HCL HCL 50 MG TABLET (ULTRAM) PO PRN (04:22)
--- NOTE | 2020-08-22 08:58 | NUR ---
INITIAL ROUNDS/NOW NPO Received pt AAOx4, no s/s resp distress, no c/o pain or discomfort. Pt was sleeping and did not eat her breakfast-pt had about 100ml of orange juice at 0700 per pt. Pt informed that the INSURANCE AGENCY MANAGER Ling called and stated that Dr. Torrez wants to do an Incision and Drainage at 1300 today-pt stated "great". Pt now NPO for surgery. Dressing to left hip has small amount of light pink drainage, otherwise dressing dry and intact. Pain management, skin and safety discussed-teach back done. Call light within reach.
[2020-08-22] MEDS: ASPIRIN 81 MG TAB.CHEW PO SCH (09:00)
[2020-08-22] MEDS: PATIENT'S OWN CAP PO SCH (09:00)
[2020-08-22] MEDS: MEMANTINE HCL 5 MG TABLET PO SCH (09:00)
[2020-08-22] MEDS: ATORVASTATIN 20 MG TABLET PO SCH (09:00)
[2020-08-22] MEDS: amLODIPine BESYLATE 10 MG TABLET PO SCH (09:00)
[2020-08-22] MEDS: LOSARTAN POTASSIUM 50 MG TABLET (COZAAR) PO SCH (09:00)
[2020-08-22] MEDS: CEFTAROLINE FOSAMIL ACETATE 400 MG in NS 250 ML IV SCH (11:25)
[2020-08-22] MEDS ORDERED: fentaNYL CITRATE/PF 100 MCG/2 ML AMP IVP PRN ×2 (16:00)
[2020-08-22] MEDS ORDERED: ONDANSETRON HCL 4 MG/2 ML VIAL IVP PRN (16:00)
--- NOTE | 2020-08-22 16:05 | NUR ---
TO OR Pt left floor via bed to OR in no distress.
--- NOTE | 2020-08-22 17:50 | NUR ---
BACK FROM OR Pt back from OR AAOx3, no s/s resp distress, no c/o pain or discomfort. Noted dressing to left hip clean, dry and intact. Received report from Candice VERDUZCO. Pt hungry, given dinner tray.
--- NOTE | 2020-08-22 18:51 | NUR ---
CLOSING NOTE Pt sitting up in bed drinking coffee, no s/s resp distress, no c/o pain or discomfort. Pt ambulated by herself to the bathroom and disconnected the vitals machine-so only able to obtain 3 post op vital signs. No c/o pain or discomfort. Needs met, call light within reach.
[2020-08-22] MEDS: INSULIN GLARGINE 100 UNITS/ML 10 ML VIAL SUBCUT SCH (21:00)
[2020-08-23] VITALS: BP_SYST 144
[2020-08-23] MEDS: CEFTAROLINE FOSAMIL ACETATE 400 MG in NS 250 ML IV SCH ×3 (00:51→21:54)
[2020-08-23] MEDS: QUEtiapine FUMARATE 25 MG TABLET PO SCH ×2 (00:52→21:51)
[2020-08-23] MEDS: MEMANTINE HCL 5 MG TABLET PO SCH ×3 (00:52→21:51)
[2020-08-23] MEDS: traMADol HCL HCL 50 MG TABLET (ULTRAM) PO PRN ×2 (00:55→21:54)
[2020-08-23] MEDS: DONEPEZIL HCL 5 MG TABLET (ARICEPT) PO SCH ×2 (00:56→21:51)
[2020-08-23 04:00] VITALS: BP_SYST 132
[2020-08-23 07:06] LABS: BASOPHILS % (AUTO) 0.7 % (0.0-2.0); EOSINOPHILS # (AUTO) 0.4 K/uL (0.0-0.4); HEMATOCRIT 28.5 % (36-48); HEMOGLOBIN 9.5 g/dL (12.0-16.0); LYMPHOCYTES # (AUTO) 1.4 K/uL (1.0-5.5); LYMPHOCYTES % (AUTO) 23.5 % (20.5-51.5); MEAN CORPUSCULAR HEMOGLOBIN 27 pg (27-31); MEAN CORPUSCULAR HGB CONC 34 % (32-36); MEAN CORPUSCULAR VOLUME 82 fL (79.0-98.0); MONOCYTES # (AUTO) 0.5 K/uL (0.0-1.0); MONOCYTES % (AUTO) 9.2 % (1.7-9.3); NEUTROPHILS # (AUTO) 3.5 K/uL (1.8-7.7); NEUTROPHILS % (AUTO) 59.6 % (40.0-70.0); PLATELET COUNT (AUTO) 289 K/uL (130-430); RED BLOOD CELL COUNT(AUTO) 3.47 MIL/uL (4.2-6.2); RED CELL DISTRIBUTION WIDTH 17.2 % (9.0-15.0); WHITE BLOOD COUNT (AUTO) 5.8 K/uL (4.8-10.8)
--- NOTE | 2020-08-23 07:40 | NUR ---
OPENING NOTES: RECEIVED REPORT FROM HOSIERY OPERATOR NURSE. PATIENT IS AWAKE ALERT X4. PATIENT IS TOLERATING OXYGEN ON ROOM AIR WITH NOS SIGNS OF DISTRESS OR SHORTNESS OF BREATH NOTED. PICC LINE DOUBLE LUMEN PATENT AND INTACT WITH NO SIGNS OF INFILTRATION NOTED. DENIES ANY PAIN AT THE MOMENT. PATIENT IN STABLE CONDITION. SAFETY, FALL, AND ASPIRATION PRECAUTIONS ARE IN PLACE WITH CALL LIGHT IN REACH. WILL CONTINUE TO MONITOR PATIENT FOR ANY CHANGES.
[2020-08-23 07:57] LABS: ANION GAP 10 (5-15); CHLORIDE 106 mmol/L (98-107); CREATININE 0.71 mg/dL (0.55-1.30); GLUCOSE 89 mg/dL (70-99); POTASSIUM 3.2 mmol/L (3.5-5.1); SODIUM SERUM 143 mmol/L (136-145); UREA NITROGEN, BLOOD 13 mg/dL (8-21)
[2020-08-23 08:00] VITALS: BP_SYST 145
[2020-08-23 08:13] LABS: TOTAL IRON BIND. CAPACITY 324 ug/dL (250-450)
[2020-08-23] MEDS: LOSARTAN POTASSIUM 50 MG TABLET (COZAAR) PO SCH (08:45)
[2020-08-23] MEDS: ASPIRIN 81 MG TAB.CHEW PO SCH (08:46)
[2020-08-23] MEDS: amLODIPine BESYLATE 10 MG TABLET PO SCH (08:47)
[2020-08-23] MEDS: ATORVASTATIN 20 MG TABLET PO SCH (08:47)
[2020-08-23] MEDS: PATIENT'S OWN CAP PO SCH (08:49)
[2020-08-23 12:00] VITALS: BP_SYST 127
[2020-08-23] MEDS ORDERED: POTASSIUM CHLORIDE 20 MEQ TAB.PRT.SR PO ONE (13:30)
--- NOTE | 2020-08-23 13:30 | NUR ---
HIGH ALERT NOTE: Called Dr. PAZ back at identified within the medical roster to verify physician authenticity.K-[id number]
--- NOTE | 2020-08-23 14:25 | NUR ---
DC Planning: informed dr. Bueno re dcp : pt wants only dc to home with same HH. The order was changed and BOWLING FLOOR MANAGER/Ayn to process the order. see BOWLING FLOOR MANAGER note. >> S/W dr. Washburn for home IV med. Dr Washburn will give order after wound cx resulted. >> LVM to dtr/Bruna # [phone] : f/u on PCP signed up. Pt needs f/u with PCP, ID and Ortho. Addendum: 08/23/20 at 1502 by Camille Soriano RN >> Returned call from Bruna: discussed dcp , she will make the f/u appointment with dr. Bajwa, PCP, dr. Washburn and dr. Torrez. Said , had not done so in the past because the new insurance is effective on Aug 22, 2020. She is agreeable with dcp to resume home with HH IV ABX and wound care.
[2020-08-23] MEDS ORDERED: POTA20TA83 PO (14:26)
[2020-08-23 15:13] LABS: PROTHROMBIN TIME 10.4 SECS (9.5-12.5)
[2020-08-23 16:00] VITALS: BP_SYST 116
--- NOTE | 2020-08-23 19:07 | NUR ---
CLOSING NOTES: PATIENT IS AWAKE ALERT X4. PATIENT IS TOLERATING OXYGEN ON ROOM AIR WITH NO SIGNS OF DISTRESS OR SHORTNESS OF BREATH NOTED. PICC LINE DOUBLE LUMEN PATENT AND INTACT WITH NO SIGNS OF INFILTRATION NOTED. DENIES ANY PAIN AT THE MOMENT. PATIENT IN STABLE CONDITION. SAFETY, FALL, AND ASPIRATION PRECAUTIONS REMAINED IN PLACE WITH CALL LIGHT IN REACH. WILL ENDORSE PATIENT CARE TO ONCOMING SPINNING MACHINE TENDER NURSE.
--- NOTE | 2020-08-23 19:15 | NUR ---
OPENING NOTE: RECEIVED PATIENT'S BEDSIDE REPORT FROM DAY SHIFT RN. PATIENT IS IN BED WATCHING TV. RESPIRATION IS EVEN AND UNLABORED ON RA. PICC LINE ON RIGHT UPPER ARM, DRESSING DRY, FLUSH WELL. NO S/S ACUTE DISTRESS NOTED AT THIS TIME. SAFETY AND FALL PRECAUTION IN PLACE. CALL LIGHT IS WITH PATIENT. WILL MONITOR PATIENT FOR ANY CHANGES.
[2020-08-23 20:00] VITALS: BP_SYST 141
--- NOTE | 2020-08-23 22:00 | NUR ---
PASS MED/ACCUCHEK: PATIENT'S BS 121 MG/DL. NO INSULIN CONVERGE NEEDED AT THIS TIME. PATIENT IS STABLE. WILL CONTINUE TO MONITOR.
[2020-08-23] MEDS: INSULIN GLARGINE 100 UNITS/ML 10 ML VIAL SUBCUT SCH (22:01)
--- NOTE | 2020-08-24 00:30 | NUR ---
APPLIED NEW WOUND DRESSING. PATIENT TOLERATED WELL.
[2020-08-24 01:33] VITALS: BP_SYST 117
--- NOTE | 2020-08-24 02:10 | NUR ---
RN ROUNDS: PATIENT IS RESTING COMFORTABLY AND IS STABLE. SAFETY AND FALL PRECAUTIONS IN PLACE. CALL LIGHT IS WITH PATIENT. WILL CONTINUE TO MONITOR PATIENT.
--- NOTE | 2020-08-24 04:10 | NUR ---
RN ROUNDS: PATIENT IS IN BED, SLEEPING AND STABLE. NO S/S ACUTE DISTRESS NOTED. WILL CONTINUE TO MONITOR.
[2020-08-24] MEDS: traMADol HCL HCL 50 MG TABLET (ULTRAM) PO PRN ×2 (06:22→21:41)
--- NOTE | 2020-08-24 07:15 | NUR ---
CLOSING NOTE: PATIENT IS RESTING IN BED, NO S/S ACUTE DISTRESS NOTED AT THIS TIME. RESPIRATION IS EVEN AND UNLABORED ON RA. SAFETY AND FALL PRECAUTIONS IN PLACE. CALL LIGHT IS WITH PATIENT. ALL NEEDS MET THROUGHOUT SHIFT. PATIENT CARE ENDORSED TO DAY SHIFT RN.
--- NOTE | 2020-08-24 07:40 | NUR ---
OPENING NOTES PT AWAKE, ALERT, AND ORIENTED. NONLABORED BREATHING NOTED ON ROOM AIR. WOUND DRESSING C/D/I. NO ACUTE DISTRESS NOTED. ALL NEEDS MET. CALL LIGHT IN REACH. FALL AND ASPIRATION PRECAUTIONS IN PLACE. CONTINUE TO MONITOR.
[2020-08-24] MEDS: PATIENT'S OWN CAP PO SCH (09:00)
[2020-08-24] MEDS: LOSARTAN POTASSIUM 50 MG TABLET (COZAAR) PO SCH (09:34)
[2020-08-24] MEDS: MEMANTINE HCL 5 MG TABLET PO SCH ×2 (09:34→21:43)
[2020-08-24] MEDS: ATORVASTATIN 20 MG TABLET PO SCH (09:35)
[2020-08-24] MEDS: ASPIRIN 81 MG TAB.CHEW PO SCH (09:35)
[2020-08-24] MEDS: POTASSIUM CHLORIDE 20 MEQ TAB.PRT.SR PO SCH (09:35)
[2020-08-24] MEDS: amLODIPine BESYLATE 10 MG TABLET PO SCH (09:35)
--- NOTE | 2020-08-24 09:40 | NUR ---
routine meds administered as ordered per md, education given, tolerated well. continue to monitor. awaiting for josefina from pharm, spoke to [facility].
[2020-08-24] MEDS ORDERED: ACETAMINOPHEN 325 MG TABLET ONE (09:48)
--- NOTE | 2020-08-24 09:49 | NUR ---
PT C/O PAIN, ADMINISTERED PRN PAIN MEDS ORDERED PER MD, EDUCATION GIVEN, TOLERATED WELL. CONTINUE TO MONITOR.
--- NOTE | 2020-08-24 10:11 | NUR ---
PATIENT REQUESTING FOR DIAPERS AND CELL PHONE FROM HOME, CALLED DAUGHTER NIHARIKA FROM [employer], NO ANSWER, LEFT VOICEMAIL TO CALL BACK AT [phone].
[2020-08-24] MEDS: CEFTAROLINE FOSAMIL ACETATE 400 MG in NS 250 ML IV SCH ×2 (12:43→21:42)
[2020-08-24 12:46] VITALS: BP_SYST 112
--- NOTE | 2020-08-24 13:28 | NUR ---
Dietitian Recommendations * Recommend continue Regular Diet * Recommend: add Glucerna BID, Rambo BID. * Encourage PO intake Please see Nutritional Assessment for details [facility], RD
--- NOTE | 2020-08-24 14:40 | NUR ---
wound care done as ordered, photo unable to taken due to camera being used, will notify noc nurse, pt tolerated wound care well, continue to monitor.
--- NOTE | 2020-08-24 16:08 | NUR ---
DC Planning: surgical cx: pending anaerobic cx is pending, Aerobic cx is no growth. CM will verify with dr. Washburn for home IV meds.
--- NOTE | 2020-08-24 16:40 | NUR ---
accucheck done, no insulin coverage needed per sliding scale. continue to monitor.
[2020-08-24 16:42] VITALS: BP_SYST 137
--- NOTE | 2020-08-24 19:16 | NUR ---
CLOSING NOTES PT AWAKE, ALERT, AND ORIENTED. NONLABORED BREATHING NOTED ON ROOM AIR. WOUND DRESSING C/D/I. ENDORSED TO JENNIFER WOUND CARE PHOTO. NO ACUTE DISTRESS NOTED. ALL NEEDS MET. CALL LIGHT IN REACH. FALL AND ASPIRATION PRECAUTIONS IN PLACE. PICC LINE INTACT AND PATENT, NO SIGNS OF INFILTRATION NOTED. SPOKE TO DAUGHTER NIHARIKA REGARDING CELL PHONE AND PULL UPS, DAUGHTER STATED PT LOST PHONE FOUR DAYS BEFORE GOING INTO THE HOSPITAL AND STATED WILL BRING PULL UPS TOMORROW MORNING. VERBALIZED THIS INFO TO PT, PT VERBALIZED UNDERSTANDING. ENDORSED CARE TO DAX RODRIGUEZ.
--- NOTE | 2020-08-24 19:42 | NUR ---
OPENING NOTE: RECEIVED BEDSIDE REPORT FROM DAY SHIFT RN. PATIENT IS IN BED, EATING HER DINNER. VITAL SIGNS ARE WITHIN NORMAL LIMITS. RESPIRATION IS EVEN AND UNLABORED ON RA. REPORTS PAIN IN HER L HIP. PICC LINE ON MINA. DRESSING IS INTACT AND FLUSH WELL. SAFETY AND FALL PRECAUTIONS IN PLACE. CALL LIGHT IS WITH PATIENT. WILL CONTINUE TO MONITOR.
[2020-08-24 20:00] VITALS: BP_SYST 142
[2020-08-24] MEDS: INSULIN GLARGINE 100 UNITS/ML 10 ML VIAL SUBCUT SCH (21:40)
[2020-08-24] MEDS: QUEtiapine FUMARATE 25 MG TABLET PO SCH (21:42)
[2020-08-24] MEDS: DONEPEZIL HCL 5 MG TABLET (ARICEPT) PO SCH (21:42)
--- NOTE | 2020-08-24 21:45 | NUR ---
PATIENT GIVEN SCHEDULED MEDS. PATIENT REPORTED HIP PAIN, REQUESTING HER PAIN MED. NO S/S ACUTE DISTRESS NOTED AT THE MOMENT. SAFETY AND FALL PRECAUTIONS IN PLACE. CALL LIGHT IS WITH PATIENT. WILL MONITOR PATIENT FOR ANY CHANGES.
--- NOTE | 2020-08-24 23:45 | NUR ---
PATIENT'S WOUND DRESSING CHANGED. PATIENT TOLERATED PROCEDURE WELL.
[2020-08-25 00:39] VITALS: BP_SYST 139
--- NOTE | 2020-08-25 01:30 | NUR ---
RN ROUNDS: PATIENT IS IN BED, SLEEPING. NO S/S ACUTE DISTRESS NOTED. RESPIRATION IS EVEN AND UNLABORED ON RA. CONTINUE TO MONITOR.
--- NOTE | 2020-08-25 03:37 | NUR ---
RN ROUNDS: PATIENT IS IN BED, CURRENTLY SLEEPING AND STABLE. WILL CONTINUE TO MONITOR PATIENT FRO ANY CHANGES.
--- NOTE | 2020-08-25 06:24 | NUR ---
CLOSING NOTE: ACCHUCHEK DONE, BLOOD GLUCOSE 66 MG/DL. PATIENT DENIES HAVING ANY SYMPTOMS OF HYPOGLYCEMIA. PROTOCOL FOR LOW BLOOD SUGAR STARTED. BLOOD SUGAR RE-CHECKED 236 MG/DL. INSULIN COVERAGE ADMINISTER.RESPIRATION IS EVEN AND UNLABORED ON RA. PICC LINE ON MINA IS PATENT AND FLUSH WELL. NO SIGN OF INFILTRATION NOTED. NEW DRESSING APPLIED TO PATIENT'S WOUND. PATIENT TOLERATED PROCEDURE WELL. SAFETY AND FALL PRECAUTIONS MAINTAINED. CALL LIGHT IS WITH PATIENT. ALL NEEDS MET THROUGH OUT SHIFT. PATIENT PLAN OF CARE WILL BE ENDORSED TO DAY SHIFT RN. Addendum: 08/25/20 at 0717 by Amira Valdez RN CORRECTION: INSULIN REGULAR NOT GIVEN TO PATIENT.
--- NOTE | 2020-08-25 07:20 | NUR ---
OPENING NOTE RECEIVED SBAR FROM NIGHT RN, PATIENT IN BED, RESPIRATIONS EVEN, NON LABORED, BED IN LOW AND LOCKED POSITION, CALL LIGHT WITHIN REACH, PATIENT ABLE TO AMBULATE INDEPENDENTLY
[2020-08-25 08:00] VITALS: BP_SYST 126
--- NOTE | 2020-08-25 08:00 | NUR ---
nurse note obtained, vs, patient in bed, respirations even, non labored, bed in low and locked position call light within reach, patient able to ambulate independently, complaining of pain 8/10 to left hip, repositioned
[2020-08-25] MEDS: ASPIRIN 81 MG TAB.CHEW PO SCH (08:11)
[2020-08-25] MEDS: traMADol HCL HCL 50 MG TABLET (ULTRAM) PO PRN (08:12)
[2020-08-25] MEDS: POTASSIUM CHLORIDE 20 MEQ TAB.PRT.SR PO SCH (08:13)
[2020-08-25] MEDS: ATORVASTATIN 20 MG TABLET PO SCH (08:13)
[2020-08-25] MEDS: MEMANTINE HCL 5 MG TABLET PO SCH (08:13)
[2020-08-25] MEDS: amLODIPine BESYLATE 10 MG TABLET PO SCH (08:14)
[2020-08-25] MEDS: LOSARTAN POTASSIUM 50 MG TABLET (COZAAR) PO SCH (08:14)
[2020-08-25] MEDS: CEFTAROLINE FOSAMIL ACETATE 400 MG in NS 250 ML IV SCH (08:15)
[2020-08-25] MEDS: PATIENT'S OWN CAP PO SCH (08:15)
--- NOTE | 2020-08-25 09:15 | NUR ---
nurse note patient in bed, respirations even, non labored, bed in low and locked position call light within reach, patient states pain is better 2/10
--- NOTE | 2020-08-25 10:31 | NUR ---
NURSE NOTE PATIENT IN BED, RESPIRATIONS EVEN, NON LABORED, BED IN LOW AND LOCKED POSITION CALL LIGHT WITHIN REACH, PATIENT ABLE TO AMBULATE INDEPENDENTLY, IVF'S RUNNING ORDERED, PATIENT DENIES ANY PAIN OR DISCOMFORT
--- NOTE | 2020-08-25 10:44 | NUR ---
WOUND CARE PROVIDED WOUND CARE, SEE MST SHIFT ASSESSMENT
--- NOTE | 2020-08-25 11:55 | NUR ---
MD ROUNDS DR PAZ BEDSIDE EXAMINING PATIENT
[2020-08-25 12:13] VITALS: BP_SYST 133
--- NOTE | 2020-08-25 14:33 | NUR ---
nurse note patient sitting in bed, respirations even, non labored, bed in low and locked position call light within reach,
--- NOTE | 2020-08-25 15:03 | NUR ---
DC Planning: final surgical culture result is negative. MARSHA faxed the IV abx order and ID progress note to irina Golds[facility] # [phone]. Margie will call back once confirmed the delivery med to pt's home. [facility] LILIANA made aware via Margie. Addendum: 08/25/20 at 1632 by Camille Soriano RN >> Initial update dcp to dtr Bruna for pt to go home with . Dtr could not take pt home today. Stated she will be at the retreat function. She requested pt going to [facility] or [facility].
--- NOTE | 2020-08-25 15:59 | NUR ---
Discharge Planning: DCP faxed referral to [facility] ([phone]) DCP to follow up Addendum: 08/25/20 at 1654 by Bernadette WEINSTEIN DCP followed up with [facility] ([phone]) patient will go to room 213A, transportation arranged with [facility] ([phone]) BLS 7:00pm. DCP made nurse and CM aware, DCP took patient packet to nurse station.
[2020-08-25 16:18] VITALS: BP_SYST 101
--- NOTE | 2020-08-25 17:04 | NUR ---
NURSE NOTE PATIENT REQUESTING THAT DRESSING BE CHANGED, EDUCATED PATIENT THAT DRESSING SHOULD ONLY BE CHANGED IF DIRTY, OR SOILED, WHICH IT IS NOT, PATIENT VERBALIZED UNDERSTANDING, BUT INSISTS THAT IT BE CHANGED, CHANGED DRESSING, SCANT DRAINAGE, NO ODOR. BED IN LOW AND LOCKED POSITION CALL LIGHT WITHIN REACH,
[2020-08-25 18:05] VITALS: BP_SYST 101
--- NOTE | 2020-08-25 19:11 | NUR ---
closing note provided SBAR to night RN, patient in bed, respirations even, non labored, bed in low and locked position, call light within reach, endorsed discharge to night RN.
--- NOTE | 2020-08-25 19:25 | NUR ---
Discharge [facility] at bedside. Pt discharge to [facility]. Pt stable condition, ambulated to bathroom w/ a cane. PICC line dressing C/D/I. All belongings w/ pt.
[2020-08-25] MEDS ORDERED: INSULIN GLARGINE 100 UNITS/ML 10 ML VIAL SUBCUT SCH (21:00)
== END 2020-08-25 19:35 | DRG 481 ==
LOC: SED 23:39 → SMU 08-19 05:15
PROVIDERS: ADMIT Internal Medicine; ATTEND Internal Medicine
PROC: 0S9B00Z Drainage of Left Hip Joint with Drainage Device, Open Approach (ICD-10-PCS; 2020-08-22)
PROC: 0S9B00Z Drainage of Left Hip Joint with Drainage Device, Open Approach (ICD-10-PCS; principal; 2020-08-22 13:15)
DX: T84.52XA Infection and inflammatory reaction due to internal left hip prosthesis, initial encounter (principal); L03.116 Cellulitis of left lower limb; E44.1 Mild protein-calorie malnutrition; M00.9 Pyogenic arthritis, unspecified; L02.416 Cutaneous abscess of left lower limb; I10 Essential (primary) hypertension; B95.61 Methicillin susceptible Staphylococcus aureus infection as the cause of diseases classified elsewhere; Y83.8 Other surgical procedures as the cause of abnormal reaction of the patient, or of later complication, without mention of misadventure at the time of the procedure; Z20.822 Contact with and (suspected) exposure to COVID-19; E11.9 Type 2 diabetes mellitus without complications; E78.5 Hyperlipidemia, unspecified; D64.9 Anemia, unspecified; E87.6 Hypokalemia; F03.90 Unspecified dementia, unspecified severity, without behavioral disturbance, psychotic disturbance, mood disturbance, and anxiety; Z96.642 Presence of left artificial hip joint; Y92.89 Other specified places as the place of occurrence of the external cause; Z68.26 Body mass index [BMI] 26.0-26.9, adult; Z79.4 Long term (current) use of insulin; Z79.82 Long term (current) use of aspirin; Z79.899 Other long term (current) drug therapy
CPT/HCPCS: 36415; 71045; 73700-TC; 76376; 80048; 80053; 80202-TC; 82607; 82962; 83036; 83540-TC; 83550-TC; 83605; 84439; 85025; 85610-TC; 85651-TC; 85730-TC; 86140; 87040-TC; 87070; 87070-TC; 87075-TC; 87081; 93005; 96365; 96366; A6209; J0690; J0712; J1815; J3370; J7050; Q9967

== ENCOUNTER 2020-10-30 22:00 | Inpatient (IN) | payer OTHER, MEDICAID, SELFPAY ==
[~2020-10-30] VITALS: Ht 172.7 cm; Wt 82.1 kg
[~2020-10-30 22:00] MED LIST changes: -METF-510 PO; +METF-518 PO; +POTA20TA83 PO
[2020-10-30 22:09] VITALS: BP_SYST 120
[2020-10-30] MEDS ORDERED: ACET-73 PO (22:12)
[2020-10-30] MEDS ORDERED: MELO-89 PO (22:15)
[2020-10-30] MEDS ORDERED: QUET50TA15 PO (22:15)
[2020-10-30] MEDS ORDERED: TRAM50TA2 PO (22:15)
[2020-10-30 23:16] LABS: ANION GAP 9 (5-15); CHLORIDE 105 mmol/L (98-107); CREATININE 1.02 mg/dL (0.55-1.30); GLUCOSE 129 mg/dL (70-99); POTASSIUM 3.9 mmol/L (3.5-5.1); SODIUM SERUM 141 mmol/L (136-145); UREA NITROGEN, BLOOD 19 mg/dL (8-21)
[2020-10-30 23:18] LABS: BASOPHILS # (AUTO) 0.2 K/uL (0.0-0.2); EOSINOPHILS # (AUTO) 0.4 K/uL (0.0-0.4); EOSINOPHILS % (AUTO) 4.5 % (0.0-4.0); HEMATOCRIT 30.7 % (36-48); LYMPHOCYTES # (AUTO) 1.3 K/uL (1.0-5.5); LYMPHOCYTES % (AUTO) 15.9 % (20.5-51.5); MEAN CORPUSCULAR HEMOGLOBIN 26 pg (27-31); MEAN CORPUSCULAR HGB CONC 33 % (32-36); MEAN CORPUSCULAR VOLUME 81 fL (79.0-98.0); MONOCYTES # (AUTO) 0.5 K/uL (0.0-1.0); MONOCYTES % (AUTO) 6.3 % (1.7-9.3); NEUTROPHILS # (AUTO) 5.7 K/uL (1.8-7.7); NEUTROPHILS % (AUTO) 71.3 % (40.0-70.0); PLATELET COUNT (AUTO) 427 K/uL (130-430); RED CELL DISTRIBUTION WIDTH 15.6 % (9.0-15.0); WHITE BLOOD COUNT (AUTO) 8.1 K/uL (4.8-10.8)
[2020-10-30 23:21] LABS: INR 0.9 (0.8-1.2); PROTHROMBIN TIME 9.7 SECS (9.5-12.5)
[2020-10-30 23:23] LABS: ALANINE AMINOTRANSFERASE 16 U/L (12-78); ALBUMIN 2.7 g/dL (3.4-4.8); ASPARTATE AMINOTRANSFERASE 12 U/L (10-37); TOTAL BILIRUBIN 0.2 mg/dL (0.0-1.0)
[2020-10-30 23:31] LABS: C-REACTIVE PROTEIN QUANT 12.3 mg/dL (0-0.5)
[2020-10-31] MEDS ORDERED: cefTRIAXone 1 GM in D5W 50 ML IV ONE (00:30)
[2020-10-31] MEDS ORDERED: MORPHINE 2 MG/ML INJ. SYRINGE IVP ONE (00:30)
[2020-10-31] MEDS ORDERED: cefTRIAXone 1 GM VIAL ONE (00:40)
[2020-10-31 01:24] LABS: BILIRUBIN,URINE NEGATIVE (NEGATIVE); BLOOD, URINE NEGATIVE (NEGATIVE); CLARITY/URINE CLEAR (CLEAR); COLOR,URINE YELLOW (YELLOW); GLUCOSE,URINE NEGATIVE (NEGATIVE); KETONES,URINE NEGATIVE (NEGATIVE); LEUKOCYTE ESTERASE ,URINE TRACE (NEGATIVE); NITRITE, URINE NEGATIVE (NEGATIVE); PH,URINE 6.5 (5.0-8.0); PROTEIN URINE NEGATIVE (NEGATIVE); UROBILINOGEN,URINE 0.2 (0.2-1.0)
[2020-10-31] MEDS ORDERED: KETOROLAC TROMETHAMINE 30 MG VIAL IVP ONE (01:45)
[2020-10-31] MEDS ORDERED: ceFAZolin SODIUM 2 GM in D5W 100 ML IV ONE (01:45)
[2020-10-31 02:06] LABS: BACTERIA,URINE FEW /HPF (None Seen); RBC,URINE 0-3 /HPF (0-3)
[2020-10-31] MEDS ORDERED: ceFAZolin SODIUM 1 GM VIAL ONE (02:19)
[2020-10-31 04:16] VITALS: BP_SYST 101
[2020-10-31 08:00] VITALS: BP_SYST 109
[2020-10-31] MEDS ORDERED: INSULIN REGULAR, HUMAN 100 UNITS/ML, 10 ML VIAL (humuLIN R) SUBCUT PRN (10:00)
[2020-10-31] MEDS ORDERED: traMADol HCL HCL 50 MG TABLET (ULTRAM) PO PRN (10:00)
[2020-10-31] MEDS ORDERED: ONDANSETRON HCL 4 MG/2 ML VIAL IVP PRN (10:00)
[2020-10-31] MEDS ORDERED: ACETAMINOPHEN 500 MG TABLET PO PRN (10:00)
[2020-10-31] MEDS ORDERED: NALOXONE HCL 0.4 MG/ML AMP (NARCAN) IVP PRN ×2 (10:00)
[2020-10-31] MEDS ORDERED: HYDROcodone/ACETAMIN 5-325 MG TAB (NORCO/ VICODIN) PO PRN (10:00)
[2020-10-31] MEDS ORDERED: LORazepam 2 MG/ML VIAL IVP PRN (10:00)
[2020-10-31] MEDS ORDERED: GLUCAGON,HUMAN RECOMBINANT 1 MG VIAL IM PRN (10:15)
[2020-10-31] MEDS: HYDROcodone/ACETAMIN 10-325 MG TAB PO PRN ×2 (10:24→20:14)
[2020-10-31 12:00] VITALS: BP_SYST 104
[2020-10-31] MEDS ORDERED: VANCOMYCIN HCL 1.25 GM/NS 250 ML IV SCH (12:00)
[2020-10-31] MEDS ORDERED: NORMAL SALINE 5 ML DISP.SYRIN IVF SCH (14:00)
[2020-10-31] MEDS: ceFAZolin SODIUM 2 GM in D5W 100 ML IV SCH ×2 (15:25→22:11)
[2020-10-31 16:00] VITALS: BP_SYST 126
[2020-10-31] MEDS: NORMAL SALINE 5 ML DISP.SYRIN IVF SCH ×2 (16:00→22:10)
[2020-10-31 20:00] VITALS: BP_SYST 124
[2020-10-31] MEDS: QUEtiapine FUMARATE 25 MG TABLET PO SCH (20:15)
[2020-10-31] MEDS: MEMANTINE HCL 5 MG TABLET PO SCH (20:15)
[2020-10-31] MEDS: INSULIN GLARGINE 100 UNITS/ML 10 ML VIAL SUBCUT SCH (20:19)
[2020-11-01] VITALS: BP_SYST 125
[2020-11-01] MEDS: ceFAZolin SODIUM 2 GM in D5W 100 ML IV SCH (05:22)
[2020-11-01] MEDS: HYDROcodone/ACETAMIN 10-325 MG TAB PO PRN ×4 (05:22→23:57)
[2020-11-01] MEDS: NORMAL SALINE 5 ML DISP.SYRIN IVF SCH ×3 (05:23→20:38)
[2020-11-01 07:12] LABS: ANION GAP 10 (5-15); CALCIUM 9.3 mg/dL (8.4-11.0); CHLORIDE 106 mmol/L (98-107); CREATININE 0.96 mg/dL (0.55-1.30); GLUCOSE 80 mg/dL (70-99); POTASSIUM 3.6 mmol/L (3.5-5.1); SODIUM SERUM 141 mmol/L (136-145); UREA NITROGEN, BLOOD 14 mg/dL (8-21)
[2020-11-01 07:19] LABS: BASOPHILS % (AUTO) 0.6 % (0.0-2.0); EOSINOPHILS # (AUTO) 0.3 K/uL (0.0-0.4); EOSINOPHILS % (AUTO) 4.5 % (0.0-4.0); HEMATOCRIT 30.2 % (36-48); HEMOGLOBIN 9.9 g/dL (12.0-16.0); LYMPHOCYTES # (AUTO) 1.4 K/uL (1.0-5.5); LYMPHOCYTES % (AUTO) 20.2 % (20.5-51.5); MEAN CORPUSCULAR HEMOGLOBIN 26 pg (27-31); MEAN CORPUSCULAR HGB CONC 33 % (32-36); MEAN CORPUSCULAR VOLUME 81 fL (79.0-98.0); MONOCYTES # (AUTO) 0.7 K/uL (0.0-1.0); MONOCYTES % (AUTO) 10.4 % (1.7-9.3); NEUTROPHILS # (AUTO) 4.4 K/uL (1.8-7.7); NEUTROPHILS % (AUTO) 64.3 % (40.0-70.0); PLATELET COUNT (AUTO) 447 K/uL (130-430); RED BLOOD CELL COUNT(AUTO) 3.75 MIL/uL (4.2-6.2); RED CELL DISTRIBUTION WIDTH 15.9 % (9.0-15.0); WHITE BLOOD COUNT (AUTO) 6.8 K/uL (4.8-10.8)
[2020-11-01 08:50] VITALS: BP_SYST 107
[2020-11-01] MEDS: ATORVASTATIN 20 MG TABLET PO SCH (08:52)
[2020-11-01] MEDS: QUEtiapine FUMARATE 25 MG TABLET PO SCH ×2 (08:54→20:37)
[2020-11-01] MEDS: MEMANTINE HCL 5 MG TABLET PO SCH ×2 (08:54→20:37)
[2020-11-01] MEDS: ASPIRIN 81 MG TAB.CHEW PO SCH (08:55)
[2020-11-01] MEDS: amLODIPine BESYLATE 10 MG TABLET PO SCH (08:55)
[2020-11-01 09:00] LABS: C-REACTIVE PROTEIN QUANT 12.9 mg/dL (0-0.5)
[2020-11-01] MEDS: LOSARTAN POTASSIUM 50 MG TABLET (COZAAR) PO SCH (09:00)
[2020-11-01 09:46] LABS: ERYTHROCYTE SEDIMENTATION RATE 102 MM/HR (0-20)
[2020-11-01] MEDS: MELOXICAM 7.5 MG TABLET PO SCH (11:08)
[2020-11-01] MEDS: NAFCILLIN SODIUM 2 GM in NS 100 ML IV SCH ×3 (11:49→23:40)
[2020-11-01 14:25] VITALS: BP_SYST 114
[2020-11-01 20:00] VITALS: BP_SYST 103
[2020-11-01] MEDS: INSULIN GLARGINE 100 UNITS/ML 10 ML VIAL SUBCUT SCH (20:41)
[2020-11-02] VITALS: BP_SYST 117
[2020-11-02] MEDS: NAFCILLIN SODIUM 2 GM in NS 100 ML IV SCH ×3 (06:23→17:02)
[2020-11-02] MEDS: NORMAL SALINE 5 ML DISP.SYRIN IVF SCH ×3 (06:25→20:35)
[2020-11-02 06:36] LABS: ANION GAP 9 (5-15); CALCIUM 8.8 mg/dL (8.4-11.0); CHLORIDE 107 mmol/L (98-107); CREATININE 0.93 mg/dL (0.55-1.30); GLUCOSE 87 mg/dL (70-99); SODIUM SERUM 143 mmol/L (136-145); UREA NITROGEN, BLOOD 22 mg/dL (8-21)
[2020-11-02 06:38] LABS: BASOPHILS % (AUTO) 0.7 % (0.0-2.0); EOSINOPHILS # (AUTO) 0.3 K/uL (0.0-0.4); EOSINOPHILS % (AUTO) 4.9 % (0.0-4.0); HEMATOCRIT 28.6 % (36-48); HEMOGLOBIN 9.3 g/dL (12.0-16.0); LYMPHOCYTES # (AUTO) 1.2 K/uL (1.0-5.5); LYMPHOCYTES % (AUTO) 22.6 % (20.5-51.5); MEAN CORPUSCULAR HEMOGLOBIN 26 pg (27-31); MEAN CORPUSCULAR HGB CONC 33 % (32-36); MEAN CORPUSCULAR VOLUME 81 fL (79.0-98.0); MONOCYTES # (AUTO) 0.6 K/uL (0.0-1.0); MONOCYTES % (AUTO) 10.8 % (1.7-9.3); NEUTROPHILS # (AUTO) 3.4 K/uL (1.8-7.7); PLATELET COUNT (AUTO) 392 K/uL (130-430); RED BLOOD CELL COUNT(AUTO) 3.55 MIL/uL (4.2-6.2); RED CELL DISTRIBUTION WIDTH 15.5 % (9.0-15.0); WHITE BLOOD COUNT (AUTO) 5.5 K/uL (4.8-10.8)
[2020-11-02 07:36] LABS: C-REACTIVE PROTEIN QUANT 9.1 mg/dL (0-0.5)
[2020-11-02 08:37] VITALS: BP_SYST 99
[2020-11-02] MEDS: ATORVASTATIN 20 MG TABLET PO SCH (08:41)
[2020-11-02] MEDS: ASPIRIN 81 MG TAB.CHEW PO SCH (08:41)
[2020-11-02] MEDS: QUEtiapine FUMARATE 25 MG TABLET PO SCH ×2 (08:42→20:34)
[2020-11-02] MEDS: MEMANTINE HCL 5 MG TABLET PO SCH ×2 (08:42→20:34)
[2020-11-02 08:44] LABS: ERYTHROCYTE SEDIMENTATION RATE 90 MM/HR (0-20)
[2020-11-02] MEDS: MELOXICAM 7.5 MG TABLET PO SCH (08:46)
[2020-11-02] MEDS: LOSARTAN POTASSIUM 50 MG TABLET (COZAAR) PO SCH (08:49)
[2020-11-02] MEDS: amLODIPine BESYLATE 10 MG TABLET PO SCH (08:51)
[2020-11-02 11:30] VITALS: BP_SYST 120
[2020-11-02 16:11] VITALS: BP_SYST 133
[2020-11-02 19:00] VITALS: BP_SYST 115
[2020-11-02 20:00] VITALS: BP_SYST 115
[2020-11-02] MEDS: INSULIN GLARGINE 100 UNITS/ML 10 ML VIAL SUBCUT SCH (20:37)
[2020-11-02] MEDS: HYDROcodone/ACETAMIN 10-325 MG TAB PO PRN (21:40)
[2020-11-03] MEDS: NAFCILLIN SODIUM 2 GM in NS 100 ML IV SCH ×5 (00:11→23:55)
[2020-11-03 00:14] VITALS: BP_SYST 118
[2020-11-03] MEDS: NORMAL SALINE 5 ML DISP.SYRIN IVF SCH ×3 (06:01→23:56)
[2020-11-03 07:54] LABS: BASOPHILS % (AUTO) 0.2 % (0.0-2.0); EOSINOPHILS # (AUTO) 0.3 K/uL (0.0-0.4); EOSINOPHILS % (AUTO) 4.5 % (0.0-4.0); HEMOGLOBIN 9.5 g/dL (12.0-16.0); LYMPHOCYTES # (AUTO) 1.3 K/uL (1.0-5.5); LYMPHOCYTES % (AUTO) 17.3 % (20.5-51.5); MEAN CORPUSCULAR HEMOGLOBIN 27 pg (27-31); MEAN CORPUSCULAR HGB CONC 33 % (32-36); MEAN CORPUSCULAR VOLUME 82 fL (79.0-98.0); MONOCYTES # (AUTO) 0.8 K/uL (0.0-1.0); MONOCYTES % (AUTO) 10.8 % (1.7-9.3); NEUTROPHILS # (AUTO) 4.9 K/uL (1.8-7.7); NEUTROPHILS % (AUTO) 67.2 % (40.0-70.0); PLATELET COUNT (AUTO) 396 K/uL (130-430); RED BLOOD CELL COUNT(AUTO) 3.53 MIL/uL (4.2-6.2); RED CELL DISTRIBUTION WIDTH 15.7 % (9.0-15.0); WHITE BLOOD COUNT (AUTO) 7.3 K/uL (4.8-10.8)
[2020-11-03 08:09] LABS: ANION GAP 10 (5-15); CHLORIDE 108 mmol/L (98-107); CREATININE 0.72 mg/dL (0.55-1.30); GLUCOSE 64 mg/dL (70-99); POTASSIUM 4.2 mmol/L (3.5-5.1); SODIUM SERUM 144 mmol/L (136-145); UREA NITROGEN, BLOOD 18 mg/dL (8-21)
[2020-11-03 08:25] VITALS: BP_SYST 117
[2020-11-03] MEDS: MEMANTINE HCL 5 MG TABLET PO SCH ×2 (08:29→20:33)
[2020-11-03] MEDS: ASPIRIN 81 MG TAB.CHEW PO SCH (08:30)
[2020-11-03] MEDS: MELOXICAM 7.5 MG TABLET PO SCH (08:30)
[2020-11-03] MEDS: ATORVASTATIN 20 MG TABLET PO SCH (08:30)
[2020-11-03] MEDS: amLODIPine BESYLATE 10 MG TABLET PO SCH (08:30)
[2020-11-03] MEDS: QUEtiapine FUMARATE 25 MG TABLET PO SCH ×2 (08:30→20:33)
[2020-11-03] MEDS: LOSARTAN POTASSIUM 50 MG TABLET (COZAAR) PO SCH (08:30)
[2020-11-03 08:37] LABS: C-REACTIVE PROTEIN QUANT 7.4 mg/dL (0-0.5)
[2020-11-03 08:56] LABS: ERYTHROCYTE SEDIMENTATION RATE 79 MM/HR (0-20)
[2020-11-03 12:05] VITALS: BP_SYST 110
[2020-11-03] MEDS: HYDROcodone/ACETAMIN 10-325 MG TAB PO PRN (13:51)
[2020-11-03 16:57] VITALS: BP_SYST 130
[2020-11-03] MEDS ORDERED: INSU100V11 SQ (18:31)
[2020-11-03] MEDS ORDERED: [UNRECOGNIZED DRUG - CODE] IV (18:31)
[2020-11-03 20:00] VITALS: BP_SYST 114
[2020-11-03] MEDS: INSULIN GLARGINE 100 UNITS/ML 10 ML VIAL SUBCUT SCH (20:39)
[2020-11-04 01:37] VITALS: BP_SYST 112
[2020-11-04] MEDS: NAFCILLIN SODIUM 2 GM in NS 100 ML IV SCH ×3 (06:13→17:04)
[2020-11-04] MEDS: NORMAL SALINE 5 ML DISP.SYRIN IVF SCH ×2 (06:15→14:00)
[2020-11-04 07:06] LABS: BASOPHILS % (AUTO) 0.3 % (0.0-2.0); EOSINOPHILS # (AUTO) 0.3 K/uL (0.0-0.4); EOSINOPHILS % (AUTO) 3.3 % (0.0-4.0); HEMATOCRIT 28.4 % (36-48); HEMOGLOBIN 9.4 g/dL (12.0-16.0); LYMPHOCYTES # (AUTO) 1.2 K/uL (1.0-5.5); LYMPHOCYTES % (AUTO) 13.8 % (20.5-51.5); MEAN CORPUSCULAR HEMOGLOBIN 27 pg (27-31); MEAN CORPUSCULAR HGB CONC 33 % (32-36); MEAN CORPUSCULAR VOLUME 81 fL (79.0-98.0); MONOCYTES # (AUTO) 0.8 K/uL (0.0-1.0); MONOCYTES % (AUTO) 8.9 % (1.7-9.3); NEUTROPHILS # (AUTO) 6.4 K/uL (1.8-7.7); NEUTROPHILS % (AUTO) 73.7 % (40.0-70.0); PLATELET COUNT (AUTO) 390 K/uL (130-430); RED BLOOD CELL COUNT(AUTO) 3.52 MIL/uL (4.2-6.2); RED CELL DISTRIBUTION WIDTH 15.9 % (9.0-15.0); WHITE BLOOD COUNT (AUTO) 8.7 K/uL (4.8-10.8)
[2020-11-04 07:32] LABS: ALANINE AMINOTRANSFERASE 15 U/L (12-78); ALBUMIN 2.5 g/dL (3.4-4.8); ANION GAP 5 (5-15); ASPARTATE AMINOTRANSFERASE 13 U/L (10-37); CALCIUM 9.5 mg/dL (8.4-11.0); CHLORIDE 107 mmol/L (98-107); CREATININE 0.78 mg/dL (0.55-1.30); GLUCOSE 67 mg/dL (70-99); POTASSIUM 4.2 mmol/L (3.5-5.1); SODIUM SERUM 142 mmol/L (136-145); TOTAL BILIRUBIN 0.2 mg/dL (0.0-1.0); UREA NITROGEN, BLOOD 13 mg/dL (8-21)
[2020-11-04 08:00] VITALS: BP_SYST 124
[2020-11-04 08:01] LABS: C-REACTIVE PROTEIN QUANT 5.5 mg/dL (0-0.5)
[2020-11-04] MEDS: HYDROcodone/ACETAMIN 10-325 MG TAB PO PRN (09:04)
[2020-11-04] MEDS: MEMANTINE HCL 5 MG TABLET PO SCH ×2 (09:04→20:54)
[2020-11-04] MEDS: ASPIRIN 81 MG TAB.CHEW PO SCH (09:04)
[2020-11-04] MEDS: MELOXICAM 7.5 MG TABLET PO SCH (09:05)
[2020-11-04] MEDS: amLODIPine BESYLATE 10 MG TABLET PO SCH (09:05)
[2020-11-04] MEDS: QUEtiapine FUMARATE 25 MG TABLET PO SCH ×2 (09:06→20:54)
[2020-11-04] MEDS: ATORVASTATIN 20 MG TABLET PO SCH (09:06)
[2020-11-04] MEDS: LOSARTAN POTASSIUM 50 MG TABLET (COZAAR) PO SCH (09:06)
[2020-11-04 10:27] LABS: ERYTHROCYTE SEDIMENTATION RATE 78 MM/HR (0-20)
[2020-11-04 11:30] VITALS: BP_SYST 116
[2020-11-04 15:44] VITALS: BP_SYST 125
[2020-11-04 17:26] VITALS: BP_SYST 128
[2020-11-04 19:47] VITALS: BP_SYST 131
[2020-11-04] MEDS: INSULIN GLARGINE 100 UNITS/ML 10 ML VIAL SUBCUT SCH (20:54)
== END 2020-11-04 21:04 | disposition home health service (06) | DRG 559 ==
LOC: SED 22:00 → STU 10-31 01:50 → SMU 10-31 03:31
PROVIDERS: ADMIT Preventive Medicine Preventive Medicine/Occupational Environmental Medicine; ATTEND Preventive Medicine Preventive Medicine/Occupational Environmental Medicine
DX: T84.52XA Infection and inflammatory reaction due to internal left hip prosthesis, initial encounter (principal); A41.9 Sepsis, unspecified organism; E43 Unspecified severe protein-calorie malnutrition; L03.116 Cellulitis of left lower limb; N39.0 Urinary tract infection, site not specified; M00.9 Pyogenic arthritis, unspecified; B95.61 Methicillin susceptible Staphylococcus aureus infection as the cause of diseases classified elsewhere; I10 Essential (primary) hypertension; E78.5 Hyperlipidemia, unspecified; E11.9 Type 2 diabetes mellitus without complications; F03.90 Unspecified dementia, unspecified severity, without behavioral disturbance, psychotic disturbance, mood disturbance, and anxiety; Y83.8 Other surgical procedures as the cause of abnormal reaction of the patient, or of later complication, without mention of misadventure at the time of the procedure; Z96.643 Presence of artificial hip joint, bilateral; D64.9 Anemia, unspecified; Z20.822 Contact with and (suspected) exposure to COVID-19; D47.3 Essential (hemorrhagic) thrombocythemia; Z79.82 Long term (current) use of aspirin; Z79.899 Other long term (current) drug therapy; Y92.89 Other specified places as the place of occurrence of the external cause
CPT/HCPCS: 36415; 73502; 80048; 80053; 81000-TC; 82962; 83605; 85025; 85610-TC; 85651-TC; 85730-TC; 86140; 87040-TC; 87081; 87086; 96365; 96367; 96375; A6209; C1751; J0690; J0696; J1610; J1815; J1885; J3370; J3490; J7060

== ENCOUNTER 2020-11-05 12:52 | Emergency (ER) | payer OTHER, MEDICAID ==
[~2020-11-05] VITALS: Ht 172.7 cm; Wt 80.3 kg
[~2020-11-05 12:52] MED LIST changes: +ACET-73 PO; +MELO-89 PO; +QUET50TA15 PO; +TRAM50TA2 PO; +[UNRECOGNIZED DRUG - CODE] IV
[2020-11-05 13:05] VITALS: BP_SYST 131
[2020-11-05 14:54] LABS: PROTHROMBIN TIME 10.5 SECS (9.5-12.5)
[2020-11-05 17:25] VITALS: BP_SYST 138
== END 2020-11-05 17:25 | disposition home or self-care (01) ==
LOC: SED 12:52
DX: T82.594A Other mechanical complication of infusion catheter, initial encounter (principal); X58.XXXA Exposure to other specified factors, initial encounter; Y93.89 Activity, other specified; Y92.89 Other specified places as the place of occurrence of the external cause; Y99.8 Other external cause status
CPT/HCPCS: 36415; 71045; 85610; 85730; 93971; 99285; C1751

== ENCOUNTER 2020-12-01 21:13 | Inpatient (IN) | payer OTHER, MEDICAID ==
[~2020-12-01] VITALS: Ht 172.7 cm; Wt 79.2 kg
[~2020-12-01 21:13] MED LIST changes: -ACET325T PO; -DEXT50DI5 IV; -DONE10TA44 PO; -MULT-1100 PO; -POTA20TA83 PO; -[UNRECOGNIZED DRUG - CODE] IJ
[2020-12-01 21:26] VITALS: BP_SYST 97
[2020-12-01] MEDS ORDERED: CLINDAMYCIN 300 MG in D5W 50 ML IV ONE (22:30)
[2020-12-01] MEDS ORDERED: KETOROLAC TROMETHAMINE 30 MG VIAL IVP ONE (22:30)
[2020-12-01 22:50] LABS: ANION GAP 13 (5-15); CALCIUM 8.9 mg/dL (8.4-11.0); CHLORIDE 106 mmol/L (98-107); CREATININE 1.07 mg/dL (0.55-1.30); GLUCOSE 123 mg/dL (70-99); POTASSIUM 3.6 mmol/L (3.5-5.1); SODIUM SERUM 143 mmol/L (136-145); UREA NITROGEN, BLOOD 29 mg/dL (8-21)
[2020-12-01 22:55] LABS: ALANINE AMINOTRANSFERASE 17 U/L (12-78); ALBUMIN 3.1 g/dL (3.4-4.8); ASPARTATE AMINOTRANSFERASE 18 U/L (10-37); TOTAL BILIRUBIN 0.2 mg/dL (0.0-1.0)
[2020-12-01] MEDS ORDERED: CLINDAMYCIN PHOSPHATE 300 MG/2 ML VIAL ONE (23:04)
[2020-12-01 23:10] LABS: BASOPHILS % (AUTO) 0.9 % (0.0-2.0); EOSINOPHILS # (AUTO) 0.4 K/uL (0.0-0.4); EOSINOPHILS % (AUTO) 12.9 % (0.0-4.0); HEMATOCRIT 31.3 % (36-48); LYMPHOCYTES # (AUTO) 0.8 K/uL (1.0-5.5); MEAN CORPUSCULAR HEMOGLOBIN 27 pg (27-31); MEAN CORPUSCULAR HGB CONC 32 % (32-36); MEAN CORPUSCULAR VOLUME 84 fL (79.0-98.0); MONOCYTES # (AUTO) 0.5 K/uL (0.0-1.0); MONOCYTES % (AUTO) 14.3 % (1.7-9.3); NEUTROPHILS # (AUTO) 1.7 K/uL (1.8-7.7); NEUTROPHILS % (AUTO) 49.9 % (40.0-70.0); PLATELET COUNT (AUTO) 306 K/uL (130-430); RED BLOOD CELL COUNT(AUTO) 3.75 MIL/uL (4.2-6.2); RED CELL DISTRIBUTION WIDTH 18.5 % (9.0-15.0); WHITE BLOOD COUNT (AUTO) 3.5 K/uL (4.8-10.8)
[2020-12-01] MEDS ORDERED: VANCOMYCIN HCL 1000 MG/VIAL IV ONE (23:28)
[2020-12-01] MEDS ORDERED: VANCOMYCIN HCL 1,000 MG in NS 250 ML IV ONE (23:30)
[2020-12-02] MEDS ORDERED: NACL 0.9% 1,000 ML IV ONE
[2020-12-02 01:51] VITALS: BP_SYST 138
[2020-12-02] MEDS ORDERED: DEXTROSE 50% JECT 50 ML DISP.SYRIN IVP PRN (06:30)
[2020-12-02] MEDS ORDERED: ACETAMINOPHEN 500 MG TABLET PO PRN (06:30)
[2020-12-02] MEDS ORDERED: D5W 1,000 ML IV PRN (06:30)
[2020-12-02] MEDS ORDERED: ACETAMINOPHEN 325 MG TABLET PO PRN (06:30)
[2020-12-02] MEDS ORDERED: LORazepam 2 MG/ML VIAL IVP PRN (06:30)
[2020-12-02] MEDS ORDERED: traMADol HCL HCL 50 MG TABLET (ULTRAM) PO PRN (06:30)
[2020-12-02] MEDS ORDERED: HYDROcodone/ACETAMIN 5-325 MG TAB (NORCO/ VICODIN) PO PRN (06:30)
[2020-12-02] MEDS ORDERED: NALOXONE HCL 0.4 MG/ML AMP (NARCAN) IVP PRN ×2 (06:30)
[2020-12-02] MEDS ORDERED: INSULIN REGULAR, HUMAN 100 UNITS/ML, 10 ML VIAL (humuLIN R) SUBCUT PRN ×2 (06:30)
[2020-12-02] MEDS ORDERED: ONDANSETRON HCL 4 MG/2 ML VIAL IVP PRN (06:30)
[2020-12-02] MEDS ORDERED: GLUCOSE (DEXTROSE) ORAL GEL -Adults PO PRN (06:30)
[2020-12-02] MEDS ORDERED: GLUCAGON,HUMAN RECOMBINANT 1 MG VIAL IM PRN (07:30)
[2020-12-02] MEDS ORDERED: MEMANTINE HCL 5 MG TABLET PO SCH (09:00)
[2020-12-02] MEDS ORDERED: QUETIAPINE FUMARATE 25 MG PO SCH (09:00)
[2020-12-02] MEDS: amLODIPine BESYLATE 10 MG TABLET PO SCH (09:08)
[2020-12-02] MEDS: ATORVASTATIN 20 MG TABLET PO SCH (09:08)
[2020-12-02] MEDS: MELOXICAM 7.5 MG TABLET PO SCH (09:09)
[2020-12-02] MEDS: LOSARTAN POTASSIUM 50 MG TABLET (COZAAR) PO SCH (09:09)
[2020-12-02] MEDS: ASPIRIN 81 MG TAB.CHEW PO SCH (09:09)
[2020-12-02] MEDS: NAFCILLIN SODIUM 2 GM in NS 100 ML IV SCH ×3 (09:10→20:32)
[2020-12-02 11:25] VITALS: BP_SYST 156
[2020-12-02] MEDS ORDERED: [UNRECOGNIZED DRUG - OTHER] IV SCH (12:00)
[2020-12-02] MEDS ORDERED: DEXTROSE IV SCH (12:00)
[2020-12-02] MEDS ORDERED: OXACILLIN IV SCH (12:00)
[2020-12-02] MEDS: NORMAL SALINE 5 ML DISP.SYRIN IVF SCH ×2 (14:38→21:40)
[2020-12-02 15:18] VITALS: BP_SYST 108
[2020-12-02 19:00] VITALS: BP_SYST 118
[2020-12-02 20:00] VITALS: BP_SYST 118
[2020-12-02] MEDS: INSULIN GLARGINE 100 UNITS/ML 10 ML VIAL SUBCUT SCH (20:37)
[2020-12-02] MEDS ORDERED: INSULIN GLARGINE 100 UNITS/ML 10 ML VIAL SUBCUT SCH (21:00)
[2020-12-02] MEDS: VANCOMYCIN HCL 1,000 MG in NS 250 ML IV SCH (23:11)
[2020-12-03 00:13] VITALS: BP_SYST 142; BP_SYST 150
[2020-12-03] MEDS: HYDROcodone/ACETAMIN 10-325 MG TAB PO PRN ×3 (02:42→13:56)
[2020-12-03] MEDS: NAFCILLIN SODIUM 2 GM in NS 100 ML IV SCH ×4 (02:42→20:41)
[2020-12-03] MEDS: NORMAL SALINE 5 ML DISP.SYRIN IVF SCH ×3 (05:57→23:55)
[2020-12-03 06:14] LABS: BASOPHILS # (AUTO) 0.1 K/uL (0.0-0.2); BASOPHILS % (AUTO) 2.4 % (0.0-2.0); EOSINOPHILS # (AUTO) 0.6 K/uL (0.0-0.4); EOSINOPHILS % (AUTO) 13.3 % (0.0-4.0); HEMATOCRIT 30.7 % (36-48); LYMPHOCYTES # (AUTO) 1.1 K/uL (1.0-5.5); LYMPHOCYTES % (AUTO) 23.6 % (20.5-51.5); MEAN CORPUSCULAR HEMOGLOBIN 27 pg (27-31); MEAN CORPUSCULAR HGB CONC 33 % (32-36); MEAN CORPUSCULAR VOLUME 83 fL (79.0-98.0); MONOCYTES # (AUTO) 0.6 K/uL (0.0-1.0); MONOCYTES % (AUTO) 13.6 % (1.7-9.3); NEUTROPHILS # (AUTO) 2.2 K/uL (1.8-7.7); NEUTROPHILS % (AUTO) 47.1 % (40.0-70.0); PLATELET COUNT (AUTO) 296 K/uL (130-430); RED BLOOD CELL COUNT(AUTO) 3.71 MIL/uL (4.2-6.2); RED CELL DISTRIBUTION WIDTH 18.6 % (9.0-15.0); WHITE BLOOD COUNT (AUTO) 4.8 K/uL (4.8-10.8)
[2020-12-03 07:13] LABS: ANION GAP 10 (5-15); CALCIUM 8.9 mg/dL (8.4-11.0); CHLORIDE 107 mmol/L (98-107); CREATININE 0.75 mg/dL (0.55-1.30); GLUCOSE 84 mg/dL (70-99); POTASSIUM 3.8 mmol/L (3.5-5.1); SODIUM SERUM 143 mmol/L (136-145); UREA NITROGEN, BLOOD 14 mg/dL (8-21)
[2020-12-03 07:18] LABS: ERYTHROCYTE SEDIMENTATION RATE 38 MM/HR (0-20)
[2020-12-03 07:57] LABS: C-REACTIVE PROTEIN QUANT 1.6 mg/dL (0-0.5)
[2020-12-03 08:30] VITALS: BP_SYST 124
[2020-12-03] MEDS: MELOXICAM 7.5 MG TABLET PO SCH (09:31)
[2020-12-03] MEDS: ASPIRIN 81 MG TAB.CHEW PO SCH (09:31)
[2020-12-03] MEDS: ATORVASTATIN 20 MG TABLET PO SCH (09:31)
[2020-12-03] MEDS: LOSARTAN POTASSIUM 50 MG TABLET (COZAAR) PO SCH (09:32)
[2020-12-03] MEDS: amLODIPine BESYLATE 10 MG TABLET PO SCH (09:32)
[2020-12-03 11:21] VITALS: BP_SYST 109
[2020-12-03] MEDS ORDERED: INSU100V9 SQ (12:28)
[2020-12-03] MEDS ORDERED: MEMA10TA PO (12:28)
[2020-12-03] MEDS ORDERED: SER25 PO (12:28)
[2020-12-03] MEDS ORDERED: MEMANTINE HCL 5 MG TABLET PO ONE (13:00)
[2020-12-03] MEDS ORDERED: QUEtiapine FUMARATE 25 MG TABLET PO ONE (13:00)
[2020-12-03 15:26] VITALS: BP_SYST 125
[2020-12-03 20:00] VITALS: BP_SYST 104
[2020-12-03 20:13] VITALS: BP_SYST 104
[2020-12-03] MEDS: INSULIN GLARGINE 100 UNITS/ML 10 ML VIAL SUBCUT SCH (20:34)
[2020-12-03] MEDS ORDERED: MEMANTINE HCL 5 MG TABLET PO SCH (21:00)
[2020-12-03] MEDS ORDERED: QUEtiapine FUMARATE 25 MG TABLET PO SCH (21:00)
[2020-12-03] MEDS: VANCOMYCIN HCL 1,000 MG in NS 250 ML IV SCH (23:55)
[2020-12-04 00:16] VITALS: BP_SYST 106
== END 2020-12-04 00:20 | disposition short-term general hospital (02) | DRG 560 ==
LOC: SED 21:13 → SMU 12-02 00:29
PROVIDERS: ADMIT Preventive Medicine Preventive Medicine/Occupational Environmental Medicine; ATTEND Preventive Medicine Preventive Medicine/Occupational Environmental Medicine
DX: T84.50XA Infection and inflammatory reaction due to unspecified internal joint prosthesis, initial encounter (principal); L02.416 Cutaneous abscess of left lower limb; E87.2 Acidosis; M86.652 Other chronic osteomyelitis, left thigh; L03.116 Cellulitis of left lower limb; I10 Essential (primary) hypertension; Z96.643 Presence of artificial hip joint, bilateral; F03.90 Unspecified dementia, unspecified severity, without behavioral disturbance, psychotic disturbance, mood disturbance, and anxiety; E78.5 Hyperlipidemia, unspecified; D64.9 Anemia, unspecified; D72.819 Decreased white blood cell count, unspecified; E11.65 Type 2 diabetes mellitus with hyperglycemia; E88.09 Other disorders of plasma-protein metabolism, not elsewhere classified; Y83.1 Surgical operation with implant of artificial internal device as the cause of abnormal reaction of the patient, or of later complication, without mention of misadventure at the time of the procedure; B95.61 Methicillin susceptible Staphylococcus aureus infection as the cause of diseases classified elsewhere; E11.69 Type 2 diabetes mellitus with other specified complication; Z20.822 Contact with and (suspected) exposure to COVID-19; Z79.82 Long term (current) use of aspirin; Z79.2 Long term (current) use of antibiotics; Z79.899 Other long term (current) drug therapy; Y92.89 Other specified places as the place of occurrence of the external cause
CPT/HCPCS: 36415; 71045; 73700-TC; 76376; 80048; 80053; 82962; 83605; 85025; 85651-TC; 86140; 87040-TC; 87081; 96365; 96368; 96375; 99285; J1815; J1885; J3370; J3490; J7030; J7040; J7050; J7060

== ENCOUNTER 2021-03-15 19:52 | Inpatient (IN) | payer OTHER, MEDICAID, SELFPAY ==
[~2021-03-15] VITALS: Ht 170.2 cm; Wt 63.5 kg
[~2021-03-15 19:52] MED LIST changes: -INSU100V11 SQ; +INSU100V9 SQ; -QUET50TA15 PO; +SER25 PO
[2021-03-15 20:29] VITALS: BP_SYST 116
[2021-03-15 22:42] LABS: BASOPHILS % (AUTO) 0.2 % (0.0-2.0); EOSINOPHILS % (AUTO) 0.3 % (0.0-4.0); HEMATOCRIT 32.9 % (36-48); LYMPHOCYTES # (AUTO) 0.9 K/uL (1.0-5.5); MEAN CORPUSCULAR HEMOGLOBIN 29 pg (27-31); MEAN CORPUSCULAR HGB CONC 33 % (32-36); MEAN CORPUSCULAR VOLUME 85 fL (79.0-98.0); MONOCYTES # (AUTO) 0.4 K/uL (0.0-1.0); MONOCYTES % (AUTO) 7.6 % (1.7-9.3); NEUTROPHILS # (AUTO) 4.6 K/uL (1.8-7.7); NEUTROPHILS % (AUTO) 76.9 % (40.0-70.0); PLATELET COUNT (AUTO) 234 K/uL (130-430); RED BLOOD CELL COUNT(AUTO) 3.86 MIL/uL (4.2-6.2); RED CELL DISTRIBUTION WIDTH 22.1 % (9.0-15.0); WHITE BLOOD COUNT (AUTO) 5.9 K/uL (4.8-10.8)
[2021-03-15 22:59] LABS: ANION GAP 12 (5-15); CHLORIDE 101 mmol/L (98-107); CREATININE 1.06 mg/dL (0.55-1.30); GLUCOSE 109 mg/dL (70-99); POTASSIUM 3.4 mmol/L (3.5-5.1); SODIUM SERUM 134 mmol/L (136-145); UREA NITROGEN, BLOOD 21 mg/dL (8-21)
[2021-03-15 23:04] LABS: ALANINE AMINOTRANSFERASE 20 U/L (12-78); ASPARTATE AMINOTRANSFERASE 17 U/L (10-37); TOTAL BILIRUBIN 0.3 mg/dL (0.0-1.0)
[2021-03-15] MEDS ORDERED: ACETAMINOPHEN 500 MG TABLET PO ONE (23:30)
[2021-03-15] MEDS ORDERED: MORPHINE 2 MG/ML INJ. SYRINGE IVP ONE (23:45)
[2021-03-15 23:46] LABS: LACTATE DEHYDROGENASE 211 U/L (81-234)
[2021-03-15 23:54] LABS: C-REACTIVE PROTEIN QUANT 16.6 mg/dL (0-0.5)
[2021-03-16 00:17] LABS: INR 0.9 (0.8-1.2); PROTHROMBIN TIME 9.9 SECS (9.5-12.5)
[2021-03-16 01:58] LABS: BILIRUBIN,URINE NEGATIVE (NEGATIVE); BLOOD, URINE NEGATIVE (NEGATIVE); CLARITY/URINE CLEAR (CLEAR); COLOR,URINE YELLOW (YELLOW); GLUCOSE,URINE NEGATIVE (NEGATIVE); KETONES,URINE NEGATIVE (NEGATIVE); LEUKOCYTE ESTERASE ,URINE NEGATIVE (NEGATIVE); NITRITE, URINE NEGATIVE (NEGATIVE); PROTEIN URINE TRACE (NEGATIVE); UROBILINOGEN,URINE 0.2 (0.2-1.0)
[2021-03-16] MEDS ORDERED: INSULIN REGULAR, HUMAN 100 UNITS/ML, 10 ML VIAL (humuLIN R) SUBCUT PRN (02:30)
[2021-03-16] MEDS ORDERED: ACETAMINOPHEN 325 MG TABLET PO PRN (02:45)
[2021-03-16] MEDS: cefTRIAXone 1 GM IVPB PREMIX 50 ML IV SCH (03:23)
[2021-03-16] MEDS: NACL 0.9% 1,000 ML IV SCH ×2 (03:23→12:17)
[2021-03-16] MEDS ORDERED: ENOXAPARIN SODIUM 40 MG/0.4 ML SYRINGE SUBCUT SCH (09:00)
[2021-03-16] MEDS: MORPHINE 4 MG INJ. 4 MG/ML VIAL IVP PRN ×3 (10:40→21:01)
[2021-03-16] MEDS ORDERED: MORPHINE 4 MG INJ. 4 MG/ML VIAL ONE (10:48)
[2021-03-16 11:20] VITALS: BP_SYST 121
[2021-03-16 12:00] LABS: BASOPHILS % (AUTO) 0.5 % (0.0-2.0); EOSINOPHILS % (AUTO) 0.8 % (0.0-4.0); HEMATOCRIT 34.3 % (36-48); HEMOGLOBIN 11.2 g/dL (12.0-16.0); MEAN CORPUSCULAR HEMOGLOBIN 28 pg (27-31); MEAN CORPUSCULAR HGB CONC 33 % (32-36); MEAN CORPUSCULAR VOLUME 86 fL (79.0-98.0); MONOCYTES # (AUTO) 0.2 K/uL (0.0-1.0); MONOCYTES % (AUTO) 3.9 % (1.7-9.3); NEUTROPHILS # (AUTO) 3.8 K/uL (1.8-7.7); NEUTROPHILS % (AUTO) 74.8 % (40.0-70.0); PLATELET COUNT (AUTO) 237 K/uL (130-430); RED BLOOD CELL COUNT(AUTO) 3.99 MIL/uL (4.2-6.2); RED CELL DISTRIBUTION WIDTH 21.7 % (9.0-15.0); WHITE BLOOD COUNT (AUTO) 5.1 K/uL (4.8-10.8)
[2021-03-16] MEDS ORDERED: IVERMECTIN 3 MG TABLET PO ONE (12:00)
[2021-03-16] MEDS: AZITHROMYCIN 500 MG in NS 250 ML IV SCH (12:18)
[2021-03-16] MEDS: CHOLECALCIFEROL (VITAMIN D3) 5,000 UNIT TABLET PO SCH (12:19)
[2021-03-16] MEDS: ASCORBIC ACID 500 MG TABLET PO SCH (12:19)
[2021-03-16] MEDS: DEXAMETHASONE SOD PHOSPHATE 4 MG/ML VIAL IVP SCH (12:19)
[2021-03-16 14:14] VITALS: BP_SYST 121
[2021-03-16 16:14] VITALS: BP_SYST 131
[2021-03-16 20:00] VITALS: BP_SYST 122
[2021-03-16] MEDS: MEMANTINE HCL 5 MG TABLET PO SCH (21:00)
[2021-03-16] MEDS: QUEtiapine FUMARATE 25 MG TABLET PO SCH (21:00)
[2021-03-16] MEDS: ENOXAPARIN SODIUM 40 MG/0.4 ML SYRINGE SUBCUT SCH (21:01)
[2021-03-17 01:27] VITALS: BP_SYST 132
[2021-03-17] MEDS: cefTRIAXone 1 GM IVPB PREMIX 50 ML IV SCH (01:34)
[2021-03-17] MEDS: NACL 0.9% 1,000 ML IV SCH (05:10)
[2021-03-17 07:07] LABS: BASOPHILS % (AUTO) 0.1 % (0.0-2.0); HEMATOCRIT 31.5 % (36-48); HEMOGLOBIN 10.4 g/dL (12.0-16.0); LYMPHOCYTES # (AUTO) 0.8 K/uL (1.0-5.5); LYMPHOCYTES % (AUTO) 12.6 % (20.5-51.5); MEAN CORPUSCULAR HEMOGLOBIN 28 pg (27-31); MEAN CORPUSCULAR HGB CONC 33 % (32-36); MEAN CORPUSCULAR VOLUME 85 fL (79.0-98.0); MONOCYTES # (AUTO) 0.3 K/uL (0.0-1.0); MONOCYTES % (AUTO) 4.7 % (1.7-9.3); NEUTROPHILS # (AUTO) 5.3 K/uL (1.8-7.7); NEUTROPHILS % (AUTO) 82.6 % (40.0-70.0); PLATELET COUNT (AUTO) 216 K/uL (130-430); RED BLOOD CELL COUNT(AUTO) 3.69 MIL/uL (4.2-6.2); RED CELL DISTRIBUTION WIDTH 21.2 % (9.0-15.0); WHITE BLOOD COUNT (AUTO) 6.4 K/uL (4.8-10.8)
[2021-03-17 07:33] LABS: ANION GAP 12 (5-15); CALCIUM 8.4 mg/dL (8.4-11.0); CHLORIDE 105 mmol/L (98-107); CREATININE 0.75 mg/dL (0.55-1.30); GLUCOSE 136 mg/dL (70-99); POTASSIUM 3.8 mmol/L (3.5-5.1); SODIUM SERUM 136 mmol/L (136-145); UREA NITROGEN, BLOOD 17 mg/dL (8-21)
[2021-03-17 08:00] VITALS: BP_SYST 138
[2021-03-17] MEDS: DEXAMETHASONE SOD PHOSPHATE 4 MG/ML VIAL IVP SCH (08:39)
[2021-03-17] MEDS: AZITHROMYCIN 500 MG in NS 250 ML IV SCH (08:39)
[2021-03-17] MEDS: ATORVASTATIN 20 MG TABLET PO SCH (08:40)
[2021-03-17] MEDS: MEMANTINE HCL 5 MG TABLET PO SCH ×2 (08:40→20:46)
[2021-03-17] MEDS: QUEtiapine FUMARATE 25 MG TABLET PO SCH ×2 (08:40→20:46)
[2021-03-17] MEDS: MELOXICAM 7.5 MG TABLET PO SCH (08:40)
[2021-03-17] MEDS: ENOXAPARIN SODIUM 40 MG/0.4 ML SYRINGE SUBCUT SCH ×2 (08:40→20:47)
[2021-03-17] MEDS: ASCORBIC ACID 500 MG TABLET PO SCH (08:40)
[2021-03-17] MEDS: CHOLECALCIFEROL (VITAMIN D3) 5,000 UNIT TABLET PO SCH (08:40)
[2021-03-17] MEDS: ASPIRIN 81 MG TAB.CHEW PO SCH (08:40)
[2021-03-17] MEDS ORDERED: IVERMECTIN 3 MG TABLET PO ONE (10:15)
[2021-03-17 12:54] VITALS: BP_SYST 129
[2021-03-17] MEDS: MORPHINE 4 MG INJ. 4 MG/ML VIAL IVP PRN ×2 (15:46→20:47)
[2021-03-17 17:00] VITALS: BP_SYST 138
[2021-03-17 20:00] VITALS: BP_SYST 134
[2021-03-18] VITALS: BP_SYST 125
[2021-03-18] MEDS: cefTRIAXone 1 GM IVPB PREMIX 50 ML IV SCH (01:30)
[2021-03-18] MEDS: NACL 0.9% 1,000 ML IV SCH ×2 (04:39→18:10)
[2021-03-18] MEDS: MORPHINE 4 MG INJ. 4 MG/ML VIAL IVP PRN (04:41)
[2021-03-18] MEDS: QUEtiapine FUMARATE 25 MG TABLET PO SCH ×2 (10:07→21:26)
[2021-03-18] MEDS: ASPIRIN 81 MG TAB.CHEW PO SCH (10:07)
[2021-03-18] MEDS: ASCORBIC ACID 500 MG TABLET PO SCH (10:07)
[2021-03-18] MEDS: MEMANTINE HCL 5 MG TABLET PO SCH ×2 (10:07→21:26)
[2021-03-18] MEDS: ATORVASTATIN 20 MG TABLET PO SCH (10:07)
[2021-03-18] MEDS: ENOXAPARIN SODIUM 40 MG/0.4 ML SYRINGE SUBCUT SCH ×2 (10:10→21:27)
[2021-03-18] MEDS: DEXAMETHASONE SOD PHOSPHATE 4 MG/ML VIAL IVP SCH (10:12)
[2021-03-18] MEDS: CHOLECALCIFEROL (VITAMIN D3) 5,000 UNIT TABLET PO SCH (10:26)
[2021-03-18] MEDS: AZITHROMYCIN 500 MG in NS 250 ML IV SCH (10:32)
[2021-03-18 12:10] VITALS: BP_SYST 136
[2021-03-18] MEDS: MELOXICAM 7.5 MG TABLET PO SCH (14:59)
[2021-03-18 16:10] VITALS: BP_SYST 150
[2021-03-18 20:00] VITALS: BP_SYST 123
[2021-03-19] VITALS: BP_SYST 138
[2021-03-19] MEDS: MORPHINE 4 MG INJ. 4 MG/ML VIAL IVP PRN (00:39)
[2021-03-19] MEDS: cefTRIAXone 1 GM IVPB PREMIX 50 ML IV SCH (01:43)
[2021-03-19 07:41] LABS: ALANINE AMINOTRANSFERASE 54 U/L (12-78); ALBUMIN 2.1 g/dL (3.4-4.8); ANION GAP 9 (5-15); ASPARTATE AMINOTRANSFERASE 39 U/L (10-37); CALCIUM 8.5 mg/dL (8.4-11.0); CHLORIDE 108 mmol/L (98-107); CREATININE 0.69 mg/dL (0.55-1.30); GLUCOSE 146 mg/dL (70-99); POTASSIUM 3.4 mmol/L (3.5-5.1); SODIUM SERUM 140 mmol/L (136-145); TOTAL BILIRUBIN 0.1 mg/dL (0.0-1.0); UREA NITROGEN, BLOOD 15 mg/dL (8-21)
[2021-03-19 07:45] LABS: BASOPHILS % (AUTO) 0.1 % (0.0-2.0); HEMATOCRIT 30.4 % (36-48); HEMOGLOBIN 10.1 g/dL (12.0-16.0); LYMPHOCYTES # (AUTO) 0.6 K/uL (1.0-5.5); LYMPHOCYTES % (AUTO) 7.5 % (20.5-51.5); MEAN CORPUSCULAR HEMOGLOBIN 28 pg (27-31); MEAN CORPUSCULAR HGB CONC 33 % (32-36); MEAN CORPUSCULAR VOLUME 84 fL (79.0-98.0); MONOCYTES # (AUTO) 0.2 K/uL (0.0-1.0); MONOCYTES % (AUTO) 2.9 % (1.7-9.3); NEUTROPHILS # (AUTO) 7.7 K/uL (1.8-7.7); NEUTROPHILS % (AUTO) 89.5 % (40.0-70.0); PLATELET COUNT (AUTO) 215 K/uL (130-430); RED BLOOD CELL COUNT(AUTO) 3.61 MIL/uL (4.2-6.2); WHITE BLOOD COUNT (AUTO) 8.6 K/uL (4.8-10.8)
[2021-03-19] MEDS: ENOXAPARIN SODIUM 40 MG/0.4 ML SYRINGE SUBCUT SCH ×2 (09:00→21:36)
[2021-03-19] MEDS: AZITHROMYCIN 500 MG in NS 250 ML IV SCH (10:25)
[2021-03-19] MEDS: CHOLECALCIFEROL (VITAMIN D3) 5,000 UNIT TABLET PO SCH (10:26)
[2021-03-19] MEDS: QUEtiapine FUMARATE 25 MG TABLET PO SCH ×2 (10:26→21:00)
[2021-03-19] MEDS: ASPIRIN 81 MG TAB.CHEW PO SCH (10:26)
[2021-03-19] MEDS: MEMANTINE HCL 5 MG TABLET PO SCH ×2 (10:26→21:00)
[2021-03-19] MEDS: ASCORBIC ACID 500 MG TABLET PO SCH (10:26)
[2021-03-19] MEDS: ATORVASTATIN 20 MG TABLET PO SCH (10:26)
[2021-03-19] MEDS: MELOXICAM 7.5 MG TABLET PO SCH (10:27)
[2021-03-19] MEDS: DEXAMETHASONE SOD PHOSPHATE 4 MG/ML VIAL IVP SCH (10:27)
[2021-03-19] MEDS: NACL 0.9% 1,000 ML IV SCH ×2 (10:30→23:50)
[2021-03-19 12:10] VITALS: BP_SYST 133
[2021-03-19] MEDS ORDERED: POTASSIUM CHLORIDE 20 MEQ TAB.PRT.SR PO ONE (13:45)
[2021-03-19 16:13] VITALS: BP_SYST 147
[2021-03-19 20:00] VITALS: BP_SYST 123
[2021-03-20 00:41] VITALS: BP_SYST 135
[2021-03-20] MEDS: cefTRIAXone 1 GM IVPB PREMIX 50 ML IV SCH (01:37)
[2021-03-20 07:21] LABS: BASOPHILS % (AUTO) 0.1 % (0.0-2.0); HEMATOCRIT 31.9 % (36-48); HEMOGLOBIN 10.6 g/dL (12.0-16.0); LYMPHOCYTES # (AUTO) 0.5 K/uL (1.0-5.5); LYMPHOCYTES % (AUTO) 4.2 % (20.5-51.5); MEAN CORPUSCULAR HEMOGLOBIN 28 pg (27-31); MEAN CORPUSCULAR HGB CONC 33 % (32-36); MEAN CORPUSCULAR VOLUME 84 fL (79.0-98.0); MONOCYTES # (AUTO) 0.3 K/uL (0.0-1.0); MONOCYTES % (AUTO) 2.2 % (1.7-9.3); NEUTROPHILS # (AUTO) 10.9 K/uL (1.8-7.7); NEUTROPHILS % (AUTO) 93.5 % (40.0-70.0); PLATELET COUNT (AUTO) 233 K/uL (130-430); RED BLOOD CELL COUNT(AUTO) 3.82 MIL/uL (4.2-6.2); RED CELL DISTRIBUTION WIDTH 21.8 % (9.0-15.0); WHITE BLOOD COUNT (AUTO) 11.7 K/uL (4.8-10.8)
[2021-03-20 08:23] LABS: ALANINE AMINOTRANSFERASE 67 U/L (12-78); ANION GAP 12 (5-15); ASPARTATE AMINOTRANSFERASE 38 U/L (10-37); CALCIUM 8.5 mg/dL (8.4-11.0); CHLORIDE 109 mmol/L (98-107); CREATININE 0.67 mg/dL (0.55-1.30); GLUCOSE 184 mg/dL (70-99); POTASSIUM 3.4 mmol/L (3.5-5.1); SODIUM SERUM 141 mmol/L (136-145); TOTAL BILIRUBIN 0.2 mg/dL (0.0-1.0); UREA NITROGEN, BLOOD 16 mg/dL (8-21)
[2021-03-20] MEDS: AZITHROMYCIN 500 MG in NS 250 ML IV SCH (09:38)
[2021-03-20] MEDS: QUEtiapine FUMARATE 25 MG TABLET PO SCH ×2 (09:39→22:08)
[2021-03-20] MEDS: ASPIRIN 81 MG TAB.CHEW PO SCH (09:39)
[2021-03-20] MEDS: ASCORBIC ACID 500 MG TABLET PO SCH (09:39)
[2021-03-20] MEDS: ATORVASTATIN 20 MG TABLET PO SCH (09:39)
[2021-03-20] MEDS: MEMANTINE HCL 5 MG TABLET PO SCH ×2 (09:39→22:08)
[2021-03-20] MEDS: CHOLECALCIFEROL (VITAMIN D3) 5,000 UNIT TABLET PO SCH (09:39)
[2021-03-20] MEDS: MELOXICAM 7.5 MG TABLET PO SCH (09:39)
[2021-03-20] MEDS: DEXAMETHASONE SOD PHOSPHATE 4 MG/ML VIAL IVP SCH (09:40)
[2021-03-20] MEDS: ENOXAPARIN SODIUM 40 MG/0.4 ML SYRINGE SUBCUT SCH ×2 (12:54→22:10)
[2021-03-20 14:01] VITALS: BP_SYST 127
[2021-03-20] MEDS: NACL 0.9% 1,000 ML IV SCH ×2 (14:11→22:32)
[2021-03-20 16:00] VITALS: BP_SYST 138
[2021-03-20 21:00] VITALS: BP_SYST 134
[2021-03-20 23:52] VITALS: BP_SYST 126
[2021-03-21] MEDS: cefTRIAXone 1 GM IVPB PREMIX 50 ML IV SCH (02:23)
[2021-03-21 08:00] VITALS: BP_SYST 132
[2021-03-21] MEDS: ASPIRIN 81 MG TAB.CHEW PO SCH (08:24)
[2021-03-21] MEDS: MELOXICAM 7.5 MG TABLET PO SCH (08:24)
[2021-03-21] MEDS: ATORVASTATIN 20 MG TABLET PO SCH (08:24)
[2021-03-21] MEDS: CHOLECALCIFEROL (VITAMIN D3) 5,000 UNIT TABLET PO SCH (08:24)
[2021-03-21] MEDS: QUEtiapine FUMARATE 25 MG TABLET PO SCH ×2 (08:24→22:23)
[2021-03-21] MEDS: MEMANTINE HCL 5 MG TABLET PO SCH ×2 (08:24→22:23)
[2021-03-21] MEDS: DEXAMETHASONE SOD PHOSPHATE 4 MG/ML VIAL IVP SCH (08:25)
[2021-03-21] MEDS: ASCORBIC ACID 500 MG TABLET PO SCH (08:25)
[2021-03-21 10:11] VITALS: BP_SYST 132
[2021-03-21] MEDS: ENOXAPARIN SODIUM 40 MG/0.4 ML SYRINGE SUBCUT SCH ×2 (11:58→22:12)
[2021-03-21 12:12] VITALS: BP_SYST 145
[2021-03-21] MEDS: MORPHINE 4 MG INJ. 4 MG/ML VIAL IVP PRN (13:49)
[2021-03-21] MEDS: NACL 0.9% 1,000 ML IV SCH (15:50)
[2021-03-21 16:09] VITALS: BP_SYST 151
[2021-03-22 00:25] VITALS: BP_SYST 127; BP_SYST 155
[2021-03-22] MEDS: cefTRIAXone 1 GM IVPB PREMIX 50 ML IV SCH (01:38)
[2021-03-22] MEDS: NACL 0.9% 1,000 ML IV SCH ×2 (05:10→17:26)
[2021-03-22 08:00] VITALS: BP_SYST 131
[2021-03-22] MEDS: ASPIRIN 81 MG TAB.CHEW PO SCH (08:26)
[2021-03-22] MEDS: ATORVASTATIN 20 MG TABLET PO SCH (08:27)
[2021-03-22] MEDS: MEMANTINE HCL 5 MG TABLET PO SCH ×2 (08:27→21:44)
[2021-03-22] MEDS: QUEtiapine FUMARATE 25 MG TABLET PO SCH ×2 (08:27→21:45)
[2021-03-22] MEDS: CHOLECALCIFEROL (VITAMIN D3) 5,000 UNIT TABLET PO SCH (08:27)
[2021-03-22] MEDS: MELOXICAM 7.5 MG TABLET PO SCH (08:27)
[2021-03-22] MEDS: ASCORBIC ACID 500 MG TABLET PO SCH (08:27)
[2021-03-22] MEDS: DEXAMETHASONE SOD PHOSPHATE 4 MG/ML VIAL IVP SCH (08:27)
[2021-03-22] MEDS: ENOXAPARIN SODIUM 40 MG/0.4 ML SYRINGE SUBCUT SCH ×2 (08:28→21:58)
[2021-03-22 12:00] VITALS: BP_SYST 140
[2021-03-22 16:00] VITALS: BP_SYST 142
[2021-03-22 20:00] VITALS: BP_SYST 118
[2021-03-22] MEDS: MORPHINE 4 MG INJ. 4 MG/ML VIAL IVP PRN (23:54)
[2021-03-23 00:46] VITALS: BP_SYST 138
[2021-03-23] MEDS: cefTRIAXone 1 GM IVPB PREMIX 50 ML IV SCH (02:22)
[2021-03-23] MEDS: NACL 0.9% 1,000 ML IV SCH ×2 (07:50→14:27)
[2021-03-23 08:10] VITALS: BP_SYST 149
[2021-03-23] MEDS: ENOXAPARIN SODIUM 40 MG/0.4 ML SYRINGE SUBCUT SCH ×2 (09:50→20:52)
[2021-03-23] MEDS: ASPIRIN 81 MG TAB.CHEW PO SCH (09:51)
[2021-03-23] MEDS: ATORVASTATIN 20 MG TABLET PO SCH (09:51)
[2021-03-23] MEDS: CHOLECALCIFEROL (VITAMIN D3) 5,000 UNIT TABLET PO SCH (09:51)
[2021-03-23] MEDS: QUEtiapine FUMARATE 25 MG TABLET PO SCH ×2 (09:51→20:49)
[2021-03-23] MEDS: MEMANTINE HCL 5 MG TABLET PO SCH ×2 (09:51→20:49)
[2021-03-23] MEDS: MELOXICAM 7.5 MG TABLET PO SCH (09:51)
[2021-03-23] MEDS: ASCORBIC ACID 500 MG TABLET PO SCH (09:51)
[2021-03-23] MEDS: DEXAMETHASONE SOD PHOSPHATE 4 MG/ML VIAL IVP SCH (09:52)
[2021-03-23] MEDS: MORPHINE 4 MG INJ. 4 MG/ML VIAL IVP PRN (11:05)
[2021-03-23 12:02] VITALS: BP_SYST 148
[2021-03-23] MEDS: ONDANSETRON HCL 4 MG/2 ML VIAL IVP PRN (14:28)
[2021-03-23 16:07] VITALS: BP_SYST 139
[2021-03-23 20:00] VITALS: BP_SYST 115
[2021-03-23] MEDS: MEGESTROL ACETATE 400 MG/10 ML UDC PO SCH (20:49)
[2021-03-23] MEDS: traMADol HCL HCL 50 MG TABLET (ULTRAM) PO PRN (21:16)
[2021-03-23] MEDS: ACETAMINOPHEN 325 MG TABLET PO PRN (21:16)
[2021-03-24] VITALS (7 sets, daily range): BP systolic 115–161
[2021-03-24] MEDS: cefTRIAXone 1 GM IVPB PREMIX 50 ML IV SCH (02:34)
[2021-03-24] MEDS: traMADol HCL HCL 50 MG TABLET (ULTRAM) PO PRN ×2 (06:36→14:49)
[2021-03-24] MEDS: ACETAMINOPHEN 325 MG TABLET PO PRN (06:36)
[2021-03-24 06:49] LABS: HEMATOCRIT 31.8 % (36-48); HEMOGLOBIN 10.4 g/dL (12.0-16.0); LYMPHOCYTES # (AUTO) 0.4 K/uL (1.0-5.5); LYMPHOCYTES % (AUTO) 4.5 % (20.5-51.5); MEAN CORPUSCULAR HEMOGLOBIN 28 pg (27-31); MEAN CORPUSCULAR HGB CONC 33 % (32-36); MEAN CORPUSCULAR VOLUME 85 fL (79.0-98.0); MONOCYTES # (AUTO) 0.2 K/uL (0.0-1.0); NEUTROPHILS # (AUTO) 8.6 K/uL (1.8-7.7); NEUTROPHILS % (AUTO) 93.5 % (40.0-70.0); PLATELET COUNT (AUTO) 316 K/uL (130-430); RED BLOOD CELL COUNT(AUTO) 3.76 MIL/uL (4.2-6.2); RED CELL DISTRIBUTION WIDTH 22.5 % (9.0-15.0); WHITE BLOOD COUNT (AUTO) 9.2 K/uL (4.8-10.8)
[2021-03-24 08:00] LABS: ANION GAP 9 (5-15); CALCIUM 8.5 mg/dL (8.4-11.0); CHLORIDE 112 mmol/L (98-107); CREATININE 0.74 mg/dL (0.55-1.30); GLUCOSE 177 mg/dL (70-99); PHOSPHORUS 2.7 mg/dL (2.7-4.5); POTASSIUM 4.2 mmol/L (3.5-5.1); SODIUM SERUM 146 mmol/L (136-145); UREA NITROGEN, BLOOD 29 mg/dL (8-21)
[2021-03-24] MEDS ORDERED: ALBUTEROL MDI INHALATION 8 GM INH INH PRN (08:30)
[2021-03-24] MEDS: MEGESTROL ACETATE 400 MG/10 ML UDC PO SCH ×3 (09:00→20:43)
[2021-03-24] MEDS: ASPIRIN 81 MG TAB.CHEW PO SCH (09:48)
[2021-03-24] MEDS: MEMANTINE HCL 5 MG TABLET PO SCH ×2 (09:48→20:43)
[2021-03-24] MEDS: MELOXICAM 7.5 MG TABLET PO SCH (09:48)
[2021-03-24] MEDS: ASCORBIC ACID 500 MG TABLET PO SCH (09:48)
[2021-03-24] MEDS: CHOLECALCIFEROL (VITAMIN D3) 5,000 UNIT TABLET PO SCH (09:48)
[2021-03-24] MEDS: ATORVASTATIN 20 MG TABLET PO SCH (09:48)
[2021-03-24] MEDS: QUEtiapine FUMARATE 25 MG TABLET PO SCH ×2 (09:49→20:43)
[2021-03-24] MEDS: DEXAMETHASONE SOD PHOSPHATE 4 MG/ML VIAL IVP SCH (09:49)
[2021-03-24] MEDS: ENOXAPARIN SODIUM 40 MG/0.4 ML SYRINGE SUBCUT SCH ×2 (09:50→20:44)
[2021-03-24] MEDS: ONDANSETRON HCL 4 MG/2 ML VIAL IVP PRN ×3 (09:53→20:44)
[2021-03-24] MEDS: NACL 0.9% 1,000 ML IV SCH ×2 (10:30→23:39)
[2021-03-24] MEDS ORDERED: ACETAMINOPHEN 325 MG TABLET PO PRN (16:00)
[2021-03-24] MEDS ORDERED: DICLOFENAC NA (18:07)
[2021-03-24] MEDS ORDERED: NON-FORMULARY MEDICATION TP SCH (21:00)
[2021-03-24] MEDS ORDERED: DICLOFENAC SODIUM 25 MG TABLET.DR PO SCH (21:00)
[2021-03-24] MEDS: ALBUTEROL MDI INHALATION 8 GM INH INH SCH (22:29)
[2021-03-25 00:13] VITALS: BP_SYST 124
[2021-03-25] MEDS: cefTRIAXone 1 GM IVPB PREMIX 50 ML IV SCH (02:04)
[2021-03-25 08:30] VITALS: BP_SYST 144
[2021-03-25] MEDS: CHOLECALCIFEROL (VITAMIN D3) 5,000 UNIT TABLET PO SCH (08:38)
[2021-03-25] MEDS: DEXAMETHASONE SOD PHOSPHATE 4 MG/ML VIAL IVP SCH (08:38)
[2021-03-25] MEDS: MEGESTROL ACETATE 400 MG/10 ML UDC PO SCH ×2 (08:38→21:44)
[2021-03-25] MEDS: ENOXAPARIN SODIUM 40 MG/0.4 ML SYRINGE SUBCUT SCH ×2 (08:38→21:46)
[2021-03-25] MEDS: MEMANTINE HCL 5 MG TABLET PO SCH ×2 (08:39→21:44)
[2021-03-25] MEDS: ATORVASTATIN 20 MG TABLET PO SCH (08:39)
[2021-03-25] MEDS: ASCORBIC ACID 500 MG TABLET PO SCH (08:39)
[2021-03-25] MEDS: ASPIRIN 81 MG TAB.CHEW PO SCH (08:39)
[2021-03-25] MEDS: QUEtiapine FUMARATE 25 MG TABLET PO SCH ×2 (08:39→21:44)
[2021-03-25] MEDS: MELOXICAM 7.5 MG TABLET PO SCH (08:39)
[2021-03-25] MEDS: ALBUTEROL MDI INHALATION 8 GM INH INH SCH ×4 (08:58→20:19)
[2021-03-25] MEDS ORDERED: DICLOFENAC 1% TP ONE (11:30)
[2021-03-25 11:38] VITALS: BP_SYST 145
[2021-03-25] MEDS: DICLOFENAC 1% TP SCH ×2 (14:16→21:45)
[2021-03-25] MEDS: NACL 0.9% 1,000 ML IV SCH (14:17)
[2021-03-25 15:39] VITALS: BP_SYST 133
[2021-03-25 19:30] VITALS: BP_SYST 145
[2021-03-25] MEDS: ONDANSETRON HCL 4 MG/2 ML VIAL IVP PRN (20:20)
[2021-03-26] VITALS (12 sets, daily range): BP systolic 113–151
[2021-03-26] MEDS: NACL 0.9% 1,000 ML IV SCH ×2 (02:43→17:52)
[2021-03-26] MEDS: cefTRIAXone 1 GM IVPB PREMIX 50 ML IV SCH (02:43)
[2021-03-26] MEDS: ALBUTEROL MDI INHALATION 8 GM INH INH SCH ×4 (07:46→22:20)
[2021-03-26] MEDS: DEXAMETHASONE SOD PHOSPHATE 4 MG/ML VIAL IVP SCH (08:21)
[2021-03-26] MEDS: MEMANTINE HCL 5 MG TABLET PO SCH ×2 (08:22→21:00)
[2021-03-26] MEDS: ASCORBIC ACID 500 MG TABLET PO SCH (08:22)
[2021-03-26] MEDS: CHOLECALCIFEROL (VITAMIN D3) 5,000 UNIT TABLET PO SCH (08:22)
[2021-03-26] MEDS: MEGESTROL ACETATE 400 MG/10 ML UDC PO SCH ×2 (08:22→21:00)
[2021-03-26] MEDS: ATORVASTATIN 20 MG TABLET PO SCH (08:22)
[2021-03-26] MEDS: ENOXAPARIN SODIUM 40 MG/0.4 ML SYRINGE SUBCUT SCH ×2 (08:22→22:43)
[2021-03-26] MEDS: ASPIRIN 81 MG TAB.CHEW PO SCH (08:23)
[2021-03-26] MEDS: MELOXICAM 7.5 MG TABLET PO SCH (08:23)
[2021-03-26] MEDS: QUEtiapine FUMARATE 25 MG TABLET PO SCH ×2 (08:23→21:00)
[2021-03-26] MEDS: DICLOFENAC 1% TP SCH ×3 (10:32→22:40)
[2021-03-26] MEDS: ONDANSETRON HCL 4 MG/2 ML VIAL IVP PRN (10:53)
[2021-03-26] MEDS ORDERED: FUROSEMIDE 40 MG/4 ML VIAL IVP ONE (13:15)
[2021-03-26] MEDS ORDERED: D5W 1,000 ML IV PRN (20:15)
[2021-03-26] MEDS ORDERED: GLUCOSE (DEXTROSE) ORAL GEL -Adults PO PRN (20:15)
[2021-03-26] MEDS ORDERED: DEXTROSE 50% JECT 50 ML DISP.SYRIN IVP PRN (20:15)
[2021-03-27] VITALS (22 sets, daily range): BP systolic 85–138
[2021-03-27] MEDS: cefTRIAXone 1 GM IVPB PREMIX 50 ML IV SCH (02:51)
[2021-03-27] MEDS: LORazepam 2 MG/ML VIAL IVP PRN ×2 (02:56→10:14)
[2021-03-27] MEDS: DEXMEDETOMIDINE HCL 200 MCG in NS 48 ML IV PRN ×3 (04:45→15:18)
[2021-03-27] MEDS: NACL 0.9% 1,000 ML IV SCH ×2 (05:10→10:38)
[2021-03-27 07:03] LABS: BASOPHILS % (AUTO) 0.1 % (0.0-2.0); HEMATOCRIT 32.8 % (36-48); HEMOGLOBIN 10.7 g/dL (12.0-16.0); LYMPHOCYTES # (AUTO) 0.4 K/uL (1.0-5.5); LYMPHOCYTES % (AUTO) 2.6 % (20.5-51.5); MEAN CORPUSCULAR HEMOGLOBIN 28 pg (27-31); MEAN CORPUSCULAR HGB CONC 33 % (32-36); MEAN CORPUSCULAR VOLUME 85 fL (79.0-98.0); MONOCYTES # (AUTO) 0.2 K/uL (0.0-1.0); MONOCYTES % (AUTO) 1.2 % (1.7-9.3); NEUTROPHILS # (AUTO) 14.6 K/uL (1.8-7.7); NEUTROPHILS % (AUTO) 96.1 % (40.0-70.0); PLATELET COUNT (AUTO) 236 K/uL (130-430); RED BLOOD CELL COUNT(AUTO) 3.87 MIL/uL (4.2-6.2); RED CELL DISTRIBUTION WIDTH 22.7 % (9.0-15.0); WHITE BLOOD COUNT (AUTO) 15.2 K/uL (4.8-10.8)
[2021-03-27] MEDS: ALBUTEROL MDI INHALATION 8 GM INH INH SCH ×3 (08:04→15:32)
[2021-03-27] MEDS: CHOLECALCIFEROL (VITAMIN D3) 5,000 UNIT TABLET PO SCH (09:00)
[2021-03-27] MEDS: ASCORBIC ACID 500 MG TABLET PO SCH (09:00)
[2021-03-27] MEDS: ATORVASTATIN 20 MG TABLET PO SCH (09:00)
[2021-03-27] MEDS: MEMANTINE HCL 5 MG TABLET PO SCH (09:00)
[2021-03-27] MEDS: QUEtiapine FUMARATE 25 MG TABLET PO SCH (09:00)
[2021-03-27] MEDS: MEGESTROL ACETATE 400 MG/10 ML UDC PO SCH (09:00)
[2021-03-27] MEDS: MELOXICAM 7.5 MG TABLET PO SCH (09:00)
[2021-03-27] MEDS: ASPIRIN 81 MG TAB.CHEW PO SCH (09:00)
[2021-03-27] MEDS: ENOXAPARIN SODIUM 40 MG/0.4 ML SYRINGE SUBCUT SCH (10:04)
[2021-03-27] MEDS ORDERED: TOCILIZUMAB 162 MG/0.9 ML SYRINGE SUBCUT ONE ×2 (10:15)
[2021-03-27 10:32] LABS: ALANINE AMINOTRANSFERASE 47 U/L (12-78); ALBUMIN 1.9 g/dL (3.4-4.8); ANION GAP 10 (5-15); ASPARTATE AMINOTRANSFERASE 21 U/L (10-37); CALCIUM 8.6 mg/dL (8.4-11.0); CHLORIDE 110 mmol/L (98-107); CREATININE 0.94 mg/dL (0.55-1.30); GLUCOSE 132 mg/dL (70-99); POTASSIUM 4.3 mmol/L (3.5-5.1); SODIUM SERUM 145 mmol/L (136-145); TOTAL BILIRUBIN 0.2 mg/dL (0.0-1.0); UREA NITROGEN, BLOOD 31 mg/dL (8-21)
[2021-03-27] MEDS: DEXAMETHASONE SOD PHOSPHATE 4 MG/ML VIAL IVP SCH (10:38)
[2021-03-27] MEDS: DICLOFENAC 1% TP SCH ×2 (10:39→15:14)
[2021-03-27] MEDS ORDERED: MICAFUNGIN SODIUM 100 MG in NS 100 ML IV SCH (11:00)
[2021-03-27] MEDS ORDERED: PIPERACILLIN/TAZO 4.5GM/DEX-IS 100 ML IV SCH (14:00)
[2021-03-27] MEDS ORDERED: MORPHINE 4 MG INJ. 4 MG/ML VIAL IVP ONE (18:00)
[2021-03-27] MEDS ORDERED: LORazepam 2 MG/ML VIAL IVP PRN (18:00)
[2021-03-27] MEDS ORDERED: MORPHINE 4 MG INJ. 4 MG/ML VIAL IVP PRN (18:00)
[2021-03-27] MEDS ORDERED: LORazepam 2 MG/ML VIAL IVP ONE (18:00)
== END 2021-03-27 23:44 | DRG 177 ==
LOC: SED 19:52 → STU 03-16 02:24 → SIC 03-26 13:10
PROVIDERS: ADMIT Family Medicine; ATTEND Family Medicine
PROC: 5A0935A Assistance with Respiratory Ventilation, Less than 24 Consecutive Hours, High Flow/Velocity Cannula (ICD-10-PCS; principal; 2021-03-25)
PROC: 5A0935A Assistance with Respiratory Ventilation, Less than 24 Consecutive Hours, High Flow/Velocity Cannula (ICD-10-PCS; 2021-03-26)
PROC: XW033H5 Introduction of Tocilizumab into Peripheral Vein, Percutaneous Approach, New Technology Group 5 (ICD-10-PCS; 2021-03-27)
DX: U07.1 COVID-19 (principal); J12.82 Pneumonia due to coronavirus disease 2019; J96.01 Acute respiratory failure with hypoxia; F29 Unspecified psychosis not due to a substance or known physiological condition; G89.29 Other chronic pain; M54.9 Dorsalgia, unspecified; Z66 Do not resuscitate; M19.90 Unspecified osteoarthritis, unspecified site; F03.90 Unspecified dementia, unspecified severity, without behavioral disturbance, psychotic disturbance, mood disturbance, and anxiety; Z96.643 Presence of artificial hip joint, bilateral; E11.9 Type 2 diabetes mellitus without complications; I10 Essential (primary) hypertension; Z91.19 Patient's noncompliance with other medical treatment and regimen; Z87.891 Personal history of nicotine dependence; Z79.899 Other long term (current) drug therapy; Z79.82 Long term (current) use of aspirin
CPT/HCPCS: 36415; 36600; 71045; 80048; 80053; 81003; 82550; 82728; 82803-TC; 82962; 83605; 83615; 83735; 83880; 84100; 84484; 85025; 85379; 85384; 85610-TC; 85730-TC; 86140; 87040-TC; 87086; 93005; 94640; 94760; 96365; 96375; 99285; G0378; J0456; J0696; J1100; J1650; J1815; J1940; J2060; J2248; J2270; J2405; J2543; J3262; J7050